=== PATIENT | female | born 1990 | race Asian ===

== ENCOUNTER 2023-10-10 16:59 | Inpatient (IN) | payer OTHER, SELFPAY ==
[2023-10-09 15:18] VITALS: BMI 20.8
[2023-10-09 15:23] VITALS: BP 117/73
--- NOTE | 2023-10-09 15:51 | ED.GENMED ---
History of Present Illness
<Ronald Hines MD - Last Filed: 10/10/23 15:51>
General
Chief Complaint: Chest Pain
Source: patient
Time Seen by Provider: 10/09/23 15:32
History of Present Illness
History of Present Illness:
33-year-old female apparently [facility]. Upon leaving [facility] she elected to call the ambulance to be evaluated for her leukemia which she has not been treated for. She has had some shortness of breath the last few days. Last
medication for her leukemia was in June. No significant chest pain. General weakness however. Admits to depression and some soup mild suicidal ideation.
Past History
<Ronald Hines MD - Last Filed: 10/10/23 15:51>
Past History
ED Past Medical History: Psychiatric (Bipolar) and Other (Leukemia); Negative Asthma, HTN, Hypercholesterolemia or NIDDM
ED Past Surgical History: None
Social History
Tobacco: Non-smoker
Alcohol: None
Personal: Single
Living: alone
Review of Systems
<Ronald Hines MD - Last Filed: 10/10/23 15:51>
Review of Systems
All Other Systems: Not applicable
Constitutional: Denies fever or chills
ABD/GI: Reports no symptoms
Phy Exam
<Ronald Hines MD - Last Filed: 10/10/23 15:51>
Physical Exam
Physical Exam:
GENERAL: Alert and oriented in no apparent distress
EYE: Orbits normal.
NECK: Supple, no significant adenopathy.
ENT: Pharynx without erythema
CARDIAC: Regular rate and rhythm without any obvious murmurs.
LUNGS: Clear breath sounds,normal
ABDOMEN: Soft, without focal tenderness or distention
NEUROLOGICAL: Alert and oriented , grossly non-focal
SKIN: Warm and dry, areas of bruising across her knees bilaterally extending to the upper anterior tibias bilaterally. Some bruising on her upper extremities
MUSCULOSKELETAL: No edema,no deformity.Good color
PSYCH: Normal and appropriate interaction.
Scores
<Ronald Hines MD - Last Filed: 10/10/23 15:51>
Heart Score for Chest Pain Patients
STEMI patient?: Not applicable
Course
<Ronald Hines MD - Last Filed: 10/10/23 15:51>
Orders/Labs/Results
Orders:
Orders
10/09/23 15:26
EKG [Electrocardiogram (*1)] Urgent
Reason for Study: Tachycardia
EKG- Treatment ONCE
10/09/23 15:27
Alcohol Urgent
Complete Blood Count/With Diff Urgent
Comprehensive Metabolic Panel Urgent
HCG, Serum Qualitative Screen Urgent
Comment: ADD
Manual Differential Urgent
Troponin I Urgent
10/09/23 15:34
Add On- LAB Urgent
Tests Added?: qual bhcg
Crisis Consult Urgent
Reason for Consult: depression/suicidal ideation/ bipolar
10/09/23 15:43
Add On- LAB Urgent
Tests Added?: alcohol
10/09/23 15:44
D-Dimer Urgent
10/09/23 15:56
Urine Drug Abuse Screen Urgent
Date Specimen was Collected: 10/09/23
Time Specimen was Collected: 15:54
10/09/23 17:47
CT Chest Pe Study Urgent
Comment:
Reason For Exam: Short of breath/leukemia
10/09/23 20:09
Case Management Consult ONCE
Case Management Consult: Discharge Planning
Consult Psychiatry [PSYCHIATRY CONSULT] Urgent
Consulting Provider: Lilia Barrientos
Was physician already notified: Yes
Reason for consult: History of bipolar. Poor insight. History of leukemia. Paranoid about tr
10/09/23 20:13
Diphenhydramine [Benadryl] 50 mg IV NOW STA
10/09/23 21:15
Lorazepam [Ativan] 1 mg PO NOW STA
10/10/23 05:15
Diphenhydramine [Benadryl] 25 mg IV NOW STA
Lorazepam [Ativan] 1 mg IV NOW STA
10/10/23 08:04
Diphenhydramine [Benadryl] 50 mg IV NOW STA
10/10/23 12:52
Diphenhydramine [Benadryl] 50 mg IV NOW STA
10/10/23 14:47
Lorazepam [Ativan] 1 mg IV NOW STA
Olanzapine [Zyprexa Zydis (Orally Disintegrating)] 5 mg PO NOW STA
10/10/23 14:53
Add On- LAB Urgent
Tests Added?: Total CK and TSH reflex
10/10/23 14:54
0.9% Sodium Chloride [Nss (Preservative Free)] 0.5 ml IV NOW STA
10/10/23 15:23
TSH Reflex To Free T4 Stat
Total CK [Creatine Phosphokinase] Stat
Abnormal Lab Results
10/09/23
15:27
WBC 64.5 H* 10^3/uL
(4.8-10.8)
RBC 4.06 L 10^6/uL
(4.20-5.40)
Hgb 10.3 L g/dL
(12.0-16.0)
Hct 32.5 L %
(37.0-47.0)
MCV 80.0 L fL
(81.0-99.0)
MCH 25.4 L pg
(27.0-31.0)
MCHC 31.7 L g/dL
(33.0-37.0)
RDW 17.2 H %
(11.5-14.5)
MPV 10.9 H fL
(7.4-10.4)
Abs Neuts (Manual) 33.5 H 10^3/uL
(1.4-6.5)
Segmented Neutrophils 40 L %
(42-75)
Band Neutrophils 12 H %
(0-3)
Lymphocytes (Manual) 11 L %
(20-51)
Monocytes (Manual) 14 H %
(2-9)
Blast Cells 8 H* %
(-)
Glucose 121 H mg/dl
(70-99)
10/09/23 15:27
10/09/23 15:27
Vital Signs
Initial and Last Documented VS:
Initial Vital Signs
Temp Pulse Resp BP Pulse Ox
98.9 F 84 21 117/73 96
10/09/23 15:23 10/09/23 15:23 10/09/23 15:23 10/09/23 15:23 10/09/23 15:23
Last Documented Vital Signs
Temp Pulse Resp BP Pulse Ox
98.9 F 85 16 123/87 98
10/09/23 15:23 10/10/23 08:20 10/10/23 08:20 10/10/23 08:20 10/10/23 08:20
<Yadiel Blanca MD - Last Filed: 10/10/23 14:46>
Orders/Labs/Results
Orders:
Orders
10/09/23 15:26
EKG [Electrocardiogram (*1)] Urgent
Reason for Study: Tachycardia
EKG- Treatment ONCE
10/09/23 15:27
Alcohol Urgent
Complete Blood Count/With Diff Urgent
Comprehensive Metabolic Panel Urgent
HCG, Serum Qualitative Screen Urgent
Comment: ADD
Manual Differential Urgent
Troponin I Urgent
10/09/23 15:34
Add On- LAB Urgent
Tests Added?: qual bhcg
Crisis Consult Urgent
Reason for Consult: depression/suicidal ideation/ bipolar
10/09/23 15:43
Add On- LAB Urgent
Tests Added?: alcohol
10/09/23 15:44
D-Dimer Urgent
10/09/23 15:56
Urine Drug Abuse Screen Urgent
Date Specimen was Collected: 10/09/23
Time Specimen was Collected: 15:54
10/09/23 17:47
CT Chest Pe Study Urgent
Comment:
Reason For Exam: Short of breath/leukemia
10/09/23 20:09
Case Management Consult ONCE
Case Management Consult: Discharge Planning
Consult Psychiatry [PSYCHIATRY CONSULT] Urgent
Consulting Provider: Lilia Barrientos
Was physician already notified: Yes
Reason for consult: History of bipolar. Poor insight. History of leukemia. Paranoid about tr
10/09/23 20:13
Diphenhydramine [Benadryl] 50 mg IV NOW STA
10/09/23 21:15
Lorazepam [Ativan] 1 mg PO NOW STA
10/10/23 05:15
Diphenhydramine [Benadryl] 25 mg IV NOW STA
Lorazepam [Ativan] 1 mg IV NOW STA
10/10/23 08:04
Diphenhydramine [Benadryl] 50 mg IV NOW STA
10/10/23 12:52
Diphenhydramine [Benadryl] 50 mg IV NOW STA
10/10/23 14:47
Lorazepam [Ativan] 1 mg IV NOW STA
Olanzapine [Zyprexa Zydis (Orally Disintegrating)] 5 mg PO NOW STA
10/10/23 14:53
Add On- LAB Urgent
Tests Added?: Total CK and TSH reflex
10/10/23 14:54
0.9% Sodium Chloride [Nss (Preservative Free)] 0.5 ml IV NOW STA
10/10/23 15:23
TSH Reflex To Free T4 Stat
Total CK [Creatine Phosphokinase] Stat
Abnormal Lab Results
10/09/23
15:27
WBC 64.5 H* 10^3/uL
(4.8-10.8)
RBC 4.06 L 10^6/uL
(4.20-5.40)
Hgb 10.3 L g/dL
(12.0-16.0)
Hct 32.5 L %
(37.0-47.0)
MCV 80.0 L fL
(81.0-99.0)
MCH 25.4 L pg
(27.0-31.0)
MCHC 31.7 L g/dL
(33.0-37.0)
RDW 17.2 H %
(11.5-14.5)
MPV 10.9 H fL
(7.4-10.4)
Abs Neuts (Manual) 33.5 H 10^3/uL
(1.4-6.5)
Segmented Neutrophils 40 L %
(42-75)
Band Neutrophils 12 H %
(0-3)
Lymphocytes (Manual) 11 L %
(20-51)
Monocytes (Manual) 14 H %
(2-9)
Blast Cells 8 H* %
(-)
Glucose 121 H mg/dl
(70-99)
10/09/23 15:27
10/09/23 15:27
Vital Signs
Initial and Last Documented VS:
Initial Vital Signs
Temp Pulse Resp BP Pulse Ox
98.9 F 84 21 117/73 96
10/09/23 15:23 10/09/23 15:23 10/09/23 15:23 10/09/23 15:23 10/09/23 15:23
Last Documented Vital Signs
Temp Pulse Resp BP Pulse Ox
98.9 F 85 16 123/87 98
10/09/23 15:23 10/10/23 08:20 10/10/23 08:20 10/10/23 08:20 10/10/23 08:20
<Ronald Hines MD - Last Filed: 10/10/23 15:51>
*EKG
Interpreted by ED Provider?: Yes
Interpretation: abnormal
Comparison EKG: changes noted
Heart Rate: 81
Rate: normal
Rhythm: sinus
[place]: normal axis
Interval: normal interval
QRS Pattern: normal QRS
Ischemia: other (Mild T wave inversions V2 and lead III.)
*Critical Care Note
Total Time (30-74mins, 75-104mins- exclusive of procedures): Not Applicable
Data Reviewed
Review of Other/Old Records Reveals: Labs and Testing
<Ronald Hines MD - Last Filed: 10/10/23 15:51>
Update Note
Update Note:
CBC was all reviewed with hematology. They felt this was not an emergent issue and that she should just follow-up closely with [facility] and restart her meds. Currently being seen by crisis
Crisis does not feel she requires psychiatric admission. She is not suicidal homicidal. She has poor insight into her disease but this does not warrant a committal. She was given resources for follow-up. However patient has nowhere to go likely
would warrant from restarting psychiatric medications. Again hematology felt this was not emergent from their standpoint but just needed closed follow-up with her oncologist.
We will leave her here overnight. I am giving her some Benadryl for what she feels is tardive dyskinesia symptoms. Will also help her sleep. Psychiatry consult in the morning and case management consult. There appears to be some placement issues
Med for leukemia... Dasatinib
<Yadiel Blanca MD - Last Filed: 10/10/23 14:46>
Update Note
Update Note:
CBC was all reviewed with hematology. They felt this was not an emergent issue and that she should just follow-up closely with [facility] and restart her meds. Currently being seen by crisis
Crisis does not feel she requires psychiatric admission. She is not suicidal homicidal. She has poor insight into her disease but this does not warrant a committal. She was given resources for follow-up. However patient has nowhere to go likely
would warrant from restarting psychiatric medications. Again hematology felt this was not emergent from their standpoint but just needed closed follow-up with her oncologist.
We will leave her here overnight. I am giving her some Benadryl for what she feels is tardive dyskinesia symptoms. Will also help her sleep. Psychiatry consult in the morning and case management consult. There appears to be some placement issues
Med for leukemia... Dasatinib
UPDATE (Yadiel Blanca MD)
I assumed care of the patient, reviewed all labs and imaging and evaluated the patient at bedside.
Patient essentially presented to us with acute psychotic break after [facility]. She has background history of leukemia and for reasons somewhat unclear not receiving or compliant with treatment. On her workup here she had a WBC 64;
case discussed with heme, indicated no emergent need for hospital admission but needs to be followed quite closely. Patient observed overnight while awaiting psychiatry evaluation for psychosis. Patient was ultimately seen by psychiatry this
afternoon and on their assessment patient would benefit from inpatient psychiatric treatment; oncoming ER physician (Dr. Hines, who was initial evaluating physician) to [place] [phone] for involuntary treatment. Unfortunately, with background history
of leukemia and lab abnormalities unlikely that patient will be excepted for transfer to an inpatient psychiatric facility. Will likely need to be treated for her psychiatric issue here at [facility]; ultimately, I feel that with the
untreated leukemia and the patient's very poor insight into her disease process that she would benefit from medical admission and hematology evaluation to get a plan in place for her medically while being treated psychiatrically. Case was discussed
with oncoming ER physician, admitting hospitalist, psychiatry and ultimately patient was accepted for admission.
ED Attending Note
<Ronald Hines MD - Last Filed: 10/10/23 15:51>
-
Portions of this chart may have been created with voice recognition software.� Occasional wrong word or��sound alike� substitutions may have occurred due to the inherent limitations of voice recognition software.
Discharge Plan
Departure
Patient Disposition: Admit
Date of Disposition: 10/10/23
Time of Disposition: 14:40
Admit to doctor: Giovanna
Presentation/result/management discussed w/ accepting MD/DO: Hospitalist
Discharge Problem:
Leukemia, Acute psychosis
Prescriptions:
No Action
Sprycel 100 mg Tablet
100 mg PO DAILY
Patient Comments:
10/09/23: Patient states she takes this medication, but has not been able to get it refilled.
Referrals:
NONE,* [Family Provider] -
Interventions
Interventions:
*Risk Screen - Suicide Last Done: 10/09/23 15:18
*General Assessment Last Done: 10/09/23 15:18
*Neglect/Abuse Screening Last Done: 10/09/23 15:18
*ED COVID-19 Vaccine History Last Done: 10/09/23 15:18
ED- Cardiac Assessment Last Done: 10/09/23 15:24
Discharge Date and Time
Print Language: TELUGU
[2023-10-09 15:56] LABS: ALT (SGPT) 18 U/L (0-35); AST (SGOT) 25 U/L (14-36); Albumin 4.9 g/dl (3.5-5.0); Alkaline Phosphatase 93 U/L (38-126); Blood Urea Nitrogen 10 mg/dl (7-17); Calcium 9.1 mg/dl (8.4-10.2); Carbon Dioxide 24 mmol/L (22-30); Chloride 105 mmol/L (98-107); Estimated Creatinine Clearance > 125 ml/min; Glucose 121 mg/dl (70-99); Potassium 3.6 mmol/L (3.5-5.1); Sodium 138 mmol/L (135-145); Total Bilirubin 0.6 mg/dl (0.2-1.3); Total Protein 7.3 g/dl (6.3-8.2); eGFR > 60.00
[2023-10-09 16:01] VITALS: BP 135/90
[2023-10-09 16:06] LABS: Troponin I < 0.012 ng/ml
[2023-10-09 16:20] LABS: Amphetamines Negative (Negative); Barbiturates Negative (Negative); Benzodiazepines Negative (Negative); Buprenorphine Negative (Negative); Cocaine Negative (Negative); Marijuana Negative (Negative); Methadone Negative (Negative); Methamphetamines Negative (Negative); Opiates Negative (Negative); Phencyclidine Negative (Negative); Tricyclic Antidepressants Negative (Negative)
[2023-10-09 16:25] LABS: Hematocrit 32.5 % (37.0-47.0); Hemoglobin 10.3 g/dL (12.0-16.0); Mean Corp Hgb Conc. 31.7 g/dL (33.0-37.0); Mean Corpuscular Hgb 25.4 pg (27.0-31.0); Mean Platelet Volume 10.9 fL (7.4-10.4); Platelet Count 181 10^3/uL (130-400); Red Blood Cell Count 4.06 10^6/uL (4.20-5.40); Red Cell Dist. Width 17.2 % (11.5-14.5); White Blood Cell Count 64.5 10^3/uL (4.8-10.8)
[2023-10-09 16:41] LABS: D-Dimer 0.33 ug/mlFEU (0.00-0.50)
--- NOTE | 2023-10-09 17:05 | PHANOTE ---
Addendum entered by Alba Payton 10/10/23 15:34:
Pt's family brought bottle of Sprycel (Dasatinib) 100mg to ER, prescribed as Take 1 tablet daily. Per pt's nurse, pt took a dose while in the room.
Original Note:
med rec peri(10/09/23)-Patient states she was getting Prolixin at [facility]. Does not have a prescription for home usage, but would like to get it here. Would also like Benadryl for side effects. She is also supposed to take Sprycel 100mg
QD, but has not been able to get it filled so she hasn't taken it in weeks.
[2023-10-09 17:26] LABS: Alcohol None Detected
[2023-10-09 17:34] LABS: HCG, Serum Qualitative Screen Negative
[2023-10-09 17:42] LABS: Absolute Neutrophils -Man Diff 33.5 10^3/uL (1.4-6.5); Band Neutrophils 12 % (0-3); Segmented Neutrophils 40 % (42-75)
[2023-10-09 17:43] LABS: Eosinophils 1 % (0-6); Lymphocytes 11 % (20-51); Monocytes 14 % (2-9)
[2023-10-09 17:44] LABS: Metamyelocytes 8 % (-); Myelocytes 6 % (-)
[2023-10-09 17:45] LABS: Blasts 8 % (-); Normal RBC Morphology No; Nucleated Red Blood Cells 3 (-); Platelets Checked Yes
[2023-10-09 17:46] LABS: Total Cells Counted 100
[2023-10-09 18:00] VITALS: BP 138/86
[2023-10-09] MEDS: BENADRYL 50 MG IV (20:38)
[2023-10-09] MEDS: ATIVAN 1 MG PO (21:20)
[2023-10-09 21:21] VITALS: BP 126/92
[2023-10-10 04:00] VITALS: BP 122/84
[2023-10-10] MEDS: BENADRYL 25 MG IV (05:19)
[2023-10-10] MEDS: ATIVAN 1 MG IV ×2 (05:20→16:03)
--- NOTE | 2023-10-10 07:50 | EDRN ---
Patient ringing the call nickerson. Upon anwering this RN spoke with patient who appears calm in the stretcher with both siderails raised. patient is requesting 25mg Benadryl PO as the 'efficacy is better when its a full dose' and would like to speak
with the doctor about having more. Spoek with Dr. Blanca and informed him of the patient's request and that medications were given at 0550 this morning. Currently no further orders give. When returning to the room to update the patient she was
ambulating in the hallway without difficulty. Informed her to return to her room and the doctor will speak with her. patient returned to room.
[2023-10-10] MEDS: BENADRYL 50 MG IV ×2 (08:11→13:47)
[2023-10-10 08:20] VITALS: BP 123/87
--- NOTE | 2023-10-10 09:47 | CM ---
Spoke to HAYLEY Narvaez for patient. Crisis has seen patient. Awaiting psychiatrist to assess patient.
CM met with patient. SHe reports she wants to 201 herself to to stay to get IV benadryl to treat what she believe to be her tardive dyskinesia that she reports was caused by medications she received a couple weeks ago from while inpatient at
[facility].
CM read EMS report in chart. Patient states her mother wants her to go back to inpatient psychiatric facility. Patient feels she first has to stay at .
Patient observed walking in room and getting in and out of stretcher without difficulty.
CM awaiting psychiatry input to discuss next level of care.
--- NOTE | 2023-10-10 13:58 | CM ---
Addendum entered by DEREK Porter 10/10/23 15:33:
CM met with patient to review plan for medical admission and that team may still recommend inpatient psy admit once medically stable. Patient had the leukemia medication on bedside table. She said she took one this morning when her mother brought
in medication. CM gave Rn the medications in bottle from pharmacy.
Addendum entered by DEREK Porter 10/10/23 15:11:
CM spoke to attending. PLan to admit patient to get her medically stable then plan for inpatient psychiatric admit.
Per attending mother can bring in leukemia medication to allow patient to be treated while in . Tried to call mother but no answer and voice mail was full. CM called back and spoke to mother. She is pleased patient staying at for now. SHe
said she left the medication to treat the leukemia at patient's bedside table. CM to alert RN and attending that medication is in room.
Original Note:
MOther was coming out of room and asked to speak to CM. Spent 45 minutes with mother. Mother reports patient starting having depression age 10. Parents . Mother states patient completed high school and went to [employer]. She had to
leave main campus, come home to finish her degree due to mental health issues. Mother was not in regular contact for 10 years.
At some point patient diagnosed with leukemia. In May 2023 patient was at [facility] and transferred to [facility] for leukemia treatment. At end of May she was d/c from [facility] to her mother's home. Patient tried to get a job but per mother has
a 'mental breakdown'. Per mother patient was laughing hysterically, talking to self and to people not physically present. Patient was also refusing to take her leukemia medications. Mother took her to f/u appt with Leukemia physician. Patient
exhibited previous behaviors in front of staff at appt. Staff and physician recommended mother do 302. Mother took dgtr to [facility]. 302 not upheld, patient went home with mother. Per mother, patient got her period and did not put
on pads, bled on floor and then used toiler for BM and did not flush for days. Mother came to crisis and filed 302. Police went to house and took patient to [place]. From there 304 to [facility] 09/09/23-10/07/23. Mother was not
notified that [facility] was d.c patient to her home.
She refused to let her in. Mother called 911 and police realized there was a warrant out for missed court appearance. [facility] Patient let go of senior living so mother called EMS to [facility] patient to bring her to as patient said
she was not well. Mother states when she saw patient before going to senior living she did not have all the bruises she sees on her daughter now.
Mother would like to avoid sending patient back to [facility] but wants he to go to inpatient psychiatric facility.
IF not inpatient psychiatric admit needed mother would like patient to stay at and receive her psychiatric medications at for another 2 days.
Explained to mother awaiting psychiatrist evaluation and will need to have [facility] agree to pay for inpatient psy placement. Also reviewed patient cannot do a 201 voluntary commitment to as is not a inpatient psychiatric facility.
Patient was seen walking hallways again while CM interviewed mother of patient.
CM to follow for d/c needs.
[2023-10-10 15:26] VITALS: BP 114/79
--- NOTE | 2023-10-10 15:51 | ED.CRISIS ---
ED Crisis Note
ED Crisis Note
Subjective:
Patient has been seen by psychiatry. We have elected to petition and document a 302 based on inability to care for self or have insight to her disease. For that reason she is a danger to self.
Objective:
Has remained stable in the ER. At times wandering the [place].
Assessment/Plan:
Psychiatry noted from mom that she is not normally psychotic. This has only been since her diagnosis of leukemia. Given that she clearly warrants inpatient psychiatric care and I will petition a 302 she also warrants medical involvement. Multiple
discussions and texts between hospitalist, hematology, psychiatry. Our recommendation is admission with their involvement. Either way they will be involved
[2023-10-10] MEDS: ZYPREXA ZYDIS (ORALLY DISINTEGRATING) 5 MG PO ×2 (16:03→22:14)
[2023-10-10] MEDS: NSS (PRESERVATIVE FREE) 0.5 ML IV (16:03)
--- NOTE | 2023-10-10 16:37 | CON.MD ---
Addendum entered and electronically signed by Lilia Barrientos MD 10/10/23 17:47:
Ativan PRN ordered only as PO due to potential interaction of IV/IM ativan with IV/IM zyprexa
Original Note:
Consultation - Medical
-
33 yo F with PMH of leukemia, diagnosed last year. Pt recently on 302 petitioned by mom, was held in [facility] for several weeks and then transferred to [facility] psychiatric inpatient unit at which time she was discharged following several doses
of prolixin. Pt currently complaining of 'tardive dyskinesia', she does appear to have Parkinsonism with shuffling gate, slowed movements, increased latency of speech and flat affect. Attempted to explain subacute EPS vs TD but patient remains
convinced she has TD. She does note that IV Benadryl has been somewhat helpful - previously took cogentin 1mg BID with no benefit according to her.
Pt reportedly has not been taking her chemotherapy medication - she does admit to this & says it's because her leukemia was cured and she no longer needed it, though she had not seen an oncologist prior to stopping. Is difficult to meaningfully
interview beyond this as she perseverates on needing Benadryl for TD. Reports that she was given prolixin because she was manic, but is unable to explain further. She does note that she was previously given zyprexa and did not experience side
effects, is open to retrialing this.
Spoke to pts mom (Kateryna Wolf [phone]). She reports that pt did have some prior history of depression but never needed psychiatric care and was able to complete [employer] with business degree. Recently was diagnosed with leukemia and was
started on chemotherapy with a good response (WBC went from 100s to 9, was told she has good chance to be cured). She moved in with mom while undergoing treatment and was not working as mom wanted her to focus on her health for the time being. 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
wasnt at work. Mom reports that after pt returned home that day she was behaving bizarrely - was agitated, talking to herself, erratic. This seems to have progressed quickly as she became increasingly more psychotic and unable to meaningfully
interact with family, would start yelling suddenly, talking to self - mom notes that pt started to defecate and urinate in her room, stopped taking care of herself. Mom and pts brother who also lives there were afraid to approach her due to the
unpredictable nature of her presentation. Pt was also 'peeling her skin' on her face and told mom that she has skin cancer which she is getting rid of. Mom is adamant that this has never happened previously and that the change was sudden. At this
time pt stopped taking her chemotherapy medication as she said she no longer needed it.
Mom was eventually able to petition a 302 which was upheld - pt was kept at [facility] on medical unit for several weeks and given psychiatric medication, though it seems there was limited if any benefit. She was later transferred to [facility]
inpatient psychiatric unit, where she received several doses of prolixin and discharged - as per mom however there was no observable improvement in pt. She remained agitated and if anything, perhaps was even worse as she was wandering outside, at
times banging on door. Was arrested for trespassing and spent a day or 2 in senior living - when mom saw her after this pt was covered with large bruises but could not provide an answer as to how she got them.
Mom brought pt to ER here because pt continues to refuse medications and she worries that the longer leukemia is untreated the more risk this is to pt.
Of note - mom reported that when pt was first diagnosed with leukemia her spleen was so enlarged that she appeared . This improved after some time of tx, however it seems that spleen is enlarged currently again (unclear to what extent at
this time).
It does seem that based on moms report, pt was behaving oddly prior to psychosis in July - it seems that around the time of her initial diagnosis she was withdrawing and mom had to convince her to see oncologist. Best that I can tell, these initial
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 Based on the nature
of psychosis (sudden onset, defecation/urination in room, lack of significant response to antipsychotics, noted to intermittently wander while in ER, possibly formication on face?)
I do worry that her psychiatric symptoms are a marker of an underlying medical etiology rather than due to a primary psychiatric cause. Given that she seems to have worsened following her recent psychiatric inpatient admission, I worry that if
underlying medical cause is not explored and addressed she will continue to worsen. While I cannot say with full certainty that this is not primarily psychiatric, there are enough atypical symptoms to warrant a more in depth investigation medically
prior to making the diagnostic decision.
Due to complexity of the case there was concerted involvement and discussion with myself, ER physicians and hospitalists to determine best next steps regarding dispo. A 302 was petitioned & upheld as regardless of exact dispo, pt is not safe to
herself at this time due to notably poor insight and inability to care for herself.
302 petitioned and upheld given lack of insight and inability to care for self
Started Zyprexa 2.5mg AM/5mg HS + 5mg now order + 2.5mg BIDPRN acute agitation with IM for PO refusal
Ativan 2mg Q4H PRN acute agitation with IM for PO refusal
cogentin 1mg BID as pts report of lack of benefit is not likely to be reliable & she has received multiple doses of IV Benadryl in 24hrs
Medically admitted to evaluate underlying etiology, Heme-onc was consulted as well
--- NOTE | 2023-10-10 16:45 | HPS.HSE ---
Addendum entered and electronically signed by Bob Mcdonnell MD 10/10/23 17:09:
I saw and examined the patient.
The CULINARY ARTS INSTRUCTOR's note was reviewed and I agree with the note.
Comment:
33 female past medical history of leukemia presenting from home with confusion. Of note patient was just released from shelter and EMS note noted that patient called 911 and stated to be evaluated in the ER for her leukemia. Patient with concern of
acute psychosis and not been taking medications. Patient was evaluated by psychiatry and advised to rule out underlying metabolic causes before transferring patient to inpatient psychiatry. 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
was transferred in stable hospital for 1 month. She was discharged with WBC count of 20,000 and was compliant with the chemotherapy for some time and recently stopped taking it. Patient recently had legal problems and was in shelter and was
subsequently released. Patient was brought into the ER with concern for confusion. Patient continues to state that she has tardive dyskinesia and continues to ask for IV Benadryl. Currently in ER , however did receive multiple doses of Benadryl
Ativan and Zyprexa. Hold off on further dose of Benadryl.
General: Comfortable and Conversant
HEENT: Anicteric and Moist mucous membranes
Respiratory: Clear and Non Labored Respirations
Cardiac: S1/S2 and Regular Rhythm
GI: Soft and Non Tender
Musculoskeletal: No Clubbing, No Cyanosis and No Edema
Skin: Warm and Dry
Neuro: Awake, Alert and Nonfocal/grossly intact
Psych: Calm and Other (Flat Affect)
Impression
Altered delirium likely secondary toxic metabolic encephalopathy versus underlying acute psychotic episode
CML
Anemia likely of chronic disease
Splenomegaly
Plan
Check CBC CMP
Check UDS
Check UA
CT chest noted with no acute pulmonary embolism dissection pneumothorax or pleural or parenchymal masses
Start IVF
If with agitation chemical restraints per psychiatry.
If needed sitter at bedside
Check CT of the head
DVT prophylaxis
I spent a total of 79 minutes with the patient or on the floor. More than 50% of this time involved counseling and coordination of care.
Original Note:
Family Physician
-
Family Physician: * NONE
Chief Complaint
-
Change in mental status
History of Present Illness
Patient is a 33-year-old female past medical history of anxiety/depression and leukemia who presents with change in mental status. Patient was diagnosed with leukemia in June 2023 at [facility] and subsequently transferred to [facility] for
leukemia treatment. Following discharge from [facility] she had a 'mental breakdown', requiring hospitalization at [facility] from which she was discharged on October 06. Patient's mother called 911 upon her release, and when police
arrived they took her to shelter for an outstanding warrant. Patient was released from shelter on Oct 08, and patient's mother called EMS to bring patient to the emergency department following her release. Apparently patient has not taken her leukemia
medications since June. Patient was evaluated by psychiatry in the emergency department who recommending inpatient psych care. However, due to patient's leukemia she is unable to be placed in a psychiatric facility. Hospitalist group was asked
to evaluate patient for admission to the hospital.
Medical History
Past Medical History
Past Medical History: Reports Other
Additional Past Medical History:
Anxiety/Depression
Leukemia
Past Surgical History: Reports None
Social History
Tobacco: Non-smoker
Alcohol: None
Drug: None
Family History
Family History: Not pertinent
Allergies / Home Medications
Allergies reflects when Allergies were last updated in [email or web address].
Home Medications with original date entered in [email or web address]
Allergy/Medication List:
Allergies
Allergy/AdvReac Type Severity Reaction Status Date / Time
No Known Allergies Allergy Verified 10/09/23 17:23
Home Medications
dasatinib 100 mg tablet (Sprycel) 100 mg PO DAILY 10/09/23
Review of Systems
-
A 12 point ROS was completed and negative except as noted: Yes
Constitutional: Denies Fever or Chills
Respiratory: Denies Cough or Trouble Breathing
Cardiac: Denies Chest Pain or Palpitations
Abdomen/GI: Denies Abdominal Pain, Nausea, Vomiting or Diarrhea
Physical Exam
Vital Signs
Vital Signs
Temp Pulse Resp BP Pulse Ox
98.9 F 85 16 123/87 98
10/09/23 15:23 10/10/23 08:20 10/10/23 08:20 10/10/23 08:20 10/10/23 08:20
Physical Exam
General: Comfortable and Conversant
HEENT: Anicteric and Moist mucous membranes
Respiratory: Clear and Non Labored Respirations
Cardiac: S1/S2 and Regular Rhythm
GI: Soft and Non Tender
Musculoskeletal: No Clubbing, No Cyanosis and No Edema
Skin: Warm and Dry
Neuro: Awake, Alert and Nonfocal/grossly intact
Psych: Calm and Other (Flat Affect)
Laboratory Results
-
10/09/23 15:27
10/09/23 15:27
Laboratory Results
Total Bilirubin 0.6 mg/dl (0.2-1.3) 10/09/23 15:27
AST 25 U/L (14-36) 10/09/23 15:27
ALT 18 U/L (0-35) 10/09/23 15:27
Alkaline Phosphatase 93 U/L (38-126) 10/09/23 15:27
Troponin I < 0.012 ng/ml 10/09/23 15:27
Data Reviewed
-
CT Scan: Report Reviewed by me
Lab Data: Labs Reviewed by me
Old Records: Requested
Impression/Plan
-
Acute Delirium, possible TME vs Psych
-Consult Psychiatry
-Check urinalysis
-Continue IVFs
-Check Head CT
-Continue Zyprexa prn
Leukemia
-Consult Hematology
-Attempt to obtain records from [facility]
-Resume dasatinib
DVT proph: SCDs
Code Status: Full Code
--- NOTE | 2023-10-10 18:00 | W.PN.UPDATE ---
Update Note
Progress Note Update
For billing purposes only
[2023-10-10 18:10] VITALS: BP 123/76; BMI 20.8
--- NOTE | 2023-10-10 18:12 | EDRN ---
When the patient's mom arrived to the department she brought the patient's medication Sprycel and the patient took 1 dose sometime today. Bottle was removed from the room and sent to pharmacy to supply while patient is admitted.
[2023-10-10 18:20] LABS: Creatine Phosphokinase 93 U/L (30-135)
[2023-10-10 18:52] LABS: TSH Reflex To Free T4 3.31 uIU/ml (0.47-4.68)
[2023-10-10] MEDS: COGENTIN PO (20:00)
[2023-10-10] MEDS: NSS 1000 IV (20:14)
[2023-10-10] MEDS: BENADRYL 50 MG PO (20:38)
[2023-10-10 23:00] VITALS: BP 102/65
[2023-10-11] MEDS: NSS 1000 IV (05:47)
--- NOTE | 2023-10-11 07:04 | CON.ONC ---
Impression
Impression
Chronic myeloid leukemia
Acute psychosis
History of anxiety/depression
Plan
Plan
Resume Dasatinib [Sprycel] 100 mg Tablet PO DAILY. Patient's supply was brought to the hospital and is available for administration.
Patient has 8% blasts seen on peripheral smear. This is not typically the criteria for blast crisis (typically these patients have >20% blasts in the peripheral smear).
There is no other evidence of transformation to acute leukemia so she should respond to oral TKI therapy such as Dasatinib which has now been started.
Hematologic parameters are otherwise at reasonable levels. No evidence of significant infection or bleeding.
Follow CBC on Dasatinib.
Patient History
History of Present Illness
CC: /\\ in [place], CML
HPI: 33-year-old female diagnosed with chronic myeloid leukemia in May 2023 at [facility] and subsequently transferred to [facility] for leukemia treatment. Following definitive diagnosis, she was started on Dasatinib [Sprycel] 100 mg Tablet PO DAILY.
Unfortunately, following her discharge from [facility] she had a 'mental breakdown', requiring hospitalization at [facility] from which she was discharged on October 06. Patient's mother called 911 upon her release, and when police
arrived they took her to jail for an outstanding warrant. Patient was released from jail on Oct 08, and patient's mother called EMS to bring patient to the emergency department following her release. Patient has not taken her dasatinib since
June. Patient was evaluated by psychiatry in the emergency department who recommending inpatient psych care. However, due to patient's leukemia she is unable to be placed in a psychiatric facility. Patient was therefore admitted to [facility].
Past-Medical/Surgical History
PMH:
Anxiety/Depression
Tardive dyskinesia
Chronic myeloid Leukemia (CML)
MEDS:
Dasatinib [Sprycel] 100 mg Tablet PO DAILY -patient has not been taking
Patient Medication
�Medication �Instructions �Recorded �Confirmed �Last Taken �Type
dasatinib 100 mg tablet (Sprycel) 100 mg PO DAILY 10/09/23 10/09/23 1 Month Ago History
~09/08/23
Active Medications
Generic Name Dose Route Start Last Admin
Trade Name Freq PRN Reason Stop Dose Admin
Acetaminophen 650 mg 10/10/23 17:56
Acetaminophen 325 Mg Tablet PO 11/07/23 17:55
Q4HPRN PRN
mild pain/ fever>100.5F
Benztropine Mesylate 0.5 mg 10/10/23 20:00 10/10/23 20:00
Benztropine 0.5 Mg Tablet PO 11/07/23 19:59 Not Given
BID VETO
Diphenhydramine HCl 50 mg 10/10/23 20:19 10/10/23 20:38
Diphenhydramine 50 Mg Capsule PO 11/07/23 20:18 50 mg
Q6HPRN PRN Administration
EPS
Sodium Chloride 1,000 mls @ 100 mls/hr 10/10/23 17:56 10/11/23 05:47
Nss IV 1,000 mls
.Q10H VETO Administration
Lorazepam 2 mg 10/10/23 17:39
Lorazepam 2 Mg Tablet PO 11/07/23 17:38
Q4HPRN PRN
acute agitation
Dasatinib [Sprycel] 0 mg 10/11/23 08:00
100 Mg Tablet Po PO 11/08/23 07:59
Daily DAILY VETO
Olanzapine 5 mg 10/10/23 22:00 10/10/23 22:14
Olanzapine (Orally-Disintegrating) 5 Mg Tablet PO 11/07/23 21:59 5 mg
HS VETO Administration
Olanzapine 2.5 mg 10/11/23 08:00
Olanzapine (Orally-Disintegrating) 5 Mg Tablet PO 11/08/23 07:59
DAILY VETO
Olanzapine 2.5 mg 10/10/23 17:39
Olanzapine (Orally-Disintegrating) 5 Mg Tablet PO 08/31/24 17:38
BIDPRN PRN
acute agitation
Olanzapine 2.5 mg 10/10/23 17:39
Olanzapine 10 Mg (Powder For Reconstitution) Vial IM 11/07/23 17:38
BIDPRN PRN
acute agitation w/PO refusal
Sodium Chloride 0 flush 10/10/23 18:00
Sodium Chloride 0.9% (Flush) Syringe IV 11/07/23 17:59
PER PROTOCOL VETO
Physical Exam
-
General: Well Developed and No Apparent Distress
HEENT: Negative Jaundice
Cardiology: Normal Sinus Rhythm, S1 and S2
Pulmonary: Clear
GI: Soft and Spleenomegaly (2 FB \\/)
Musculoskeletal: No Edema
Extremities: No C/C/E
Neurology: Non Focal
Labs
Lab Results
WBC 64.5 10^3/uL (4.8-10.8) H* 10/09/23 15:
RBC 4.06 10^6/uL (4.20-5.40) L 10/09/23 15:
Hgb 10.3 g/dL (12.0-16.0) L 10/09/23 15:
Hct 32.5 % (37.0-47.0) L 10/09/23 15:
MCV 80.0 fL (81.0-99.0) L 10/09/23 15:
MCH 25.4 pg (27.0-31.0) L 10/09/23 15:
MCHC 31.7 g/dL (33.0-37.0) L 10/09/23 15:
RDW 17.2 % (11.5-14.5) H 10/09/23 15:
Plt Count 181 10^3/uL (130-400) 10/09/23 15:
MPV 10.9 fL (7.4-10.4) H 10/09/23 15:
Creatinine 0.6 mg/dL (0.6-1.0) 10/09/23 15:27
Vital Signs
Vital Signs
Temp Pulse Resp BP Pulse Ox
98 F 89 16 102/65 98
10/10/23 23:00 10/10/23 23:00 10/10/23 23:00 10/10/23 23:00 10/10/23 23:00
[2023-10-11 07:10] VITALS: BP 104/64
--- NOTE | 2023-10-11 07:15 | PTCARENOTE ---
Pt asking frequently for Benedryl. She was not happy that is was order po. Will cont to monitor.
[2023-10-11 07:22] LABS: Urine Albumin Negative (Neg - Trace); Urine Bilirubin Negative (Negative); Urine Character Clear (Clear); Urine Color Yellow; Urine Glucose Negative (Negative); Urine Ketone Negative (Negative); Urine Leukocyte Trace (Negative); Urine Nitrite Negative (Negative); Urine Occult Blood 2+ (Negative); Urine Urobilinogen Negative (Neg - 1+)
[2023-10-11 07:54] LABS: Urine Amorphous Seen
[2023-10-11] MEDS: BENADRYL 50 MG PO ×3 (07:55→20:25)
[2023-10-11] MEDS: COGENTIN 0.5 MG PO (07:55)
[2023-10-11] MEDS: NON-FORMULARY ITEM 100 MG PO (07:55)
[2023-10-11 07:57] LABS: Urine Urothelial Cell 0-2 /LPF (FEW)
[2023-10-11 07:58] LABS: Urine Mucus Moderate
[2023-10-11] MEDS: FLUSH (NSS) 1 FLUSH IV (07:58)
[2023-10-11] MEDS: ZYPREXA ZYDIS (ORALLY DISINTEGRATING) 2.5 MG PO (08:17)
--- NOTE | 2023-10-11 08:39 | SUR.PHASEI ---
Pt states that she does not want to take cogentin, but again asked if she could have benedryl.
[2023-10-11 08:57] LABS: ALT (SGPT) 15 U/L (0-35); AST (SGOT) 19 U/L (14-36); Albumin 3.8 g/dl (3.5-5.0); Alkaline Phosphatase 75 U/L (38-126); Blood Urea Nitrogen 13 mg/dl (7-17); Calcium 8.2 mg/dl (8.4-10.2); Carbon Dioxide 24 mmol/L (22-30); Chloride 108 mmol/L (98-107); Estimated Creatinine Clearance > 125 ml/min; Glucose 109 mg/dl (70-99); Iron 51 ug/dl (37-170); Potassium 3.7 mmol/L (3.5-5.1); Sodium 138 mmol/L (135-145); Total Bilirubin 0.4 mg/dl (0.2-1.3); eGFR > 60.00
[2023-10-11 09:06] LABS: Percent Saturation 21 % (20-50); Total Iron Binding Capacity 242 ug/dl (265-497)
[2023-10-11 09:22] LABS: Hematocrit 28.2 % (37.0-47.0); Hemoglobin 8.8 g/dL (12.0-16.0); Mean Corp Hgb Conc. 31.2 g/dL (33.0-37.0); Mean Corpuscular Volume 83.2 fL (81.0-99.0); Red Blood Cell Count 3.39 10^6/uL (4.20-5.40); Red Cell Dist. Width 17.3 % (11.5-14.5); White Blood Cell Count 26.6 10^3/uL (4.8-10.8)
[2023-10-11 09:33] LABS: Ferritin 30.3 ng/ml (6.24-137)
[2023-10-11 10:04] LABS: Folate 11.2 ng/ml (2.76-20); Vitamin B12 > 1000 pg/ml (239-931)
--- NOTE | 2023-10-11 11:57 | W.PN.HOSP.TC ---
Addendum entered and electronically signed by Bob Mcdonnell MD 10/11/23 13:17:
Thrombocytopenia likely secondary to CML.
Hold lovenox
Original Note:
Today's Communication/Plan
-
Await further psych recs
DC IV fluids
Continue with p.o. chemotherapy regions
Continue with sitter
Assessment / Plan
Assessment / Plan
#Altered delirium likely secondary toxic metabolic encephalopathy versus underlying acute psychotic episode
UDS negative
Not agitated
UA negative
CT of the head was negative for acute stroke or acute pathology
Patient leukocytosis significantly improved with p.o. Dasatinib
Improvement in WBC and can DC further fluids. Tolerating diet.
Continue with sitter
Oncology correspondence noted. Not in acute leukemia.
Await further psych recs. Patient is currently 302. Continue with Zyprexa 2.5 mg a.m. and 5 mg nightly in addition to Cogentin 0.5 mg twice daily. Additional Zyprexa as needed ordered. Also Ativan as needed.
#CML
WBC improved from 64 K to 26
Continue with p.o. Dasatinib as wbc continues to improve
Onc consulted.
Anemia likely of chronic disease
likely 2/2 CML
Trend hgb. no need to transfuse
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
DVT ppx-start lovenox
Anticipated Discharge: > 48 hours
Subjective/Interval History
-
Date of Service: October 11, 2023
asking for benadyrl
no overnight events
Objective Data
-
Labs:
Laboratory Results
10/11/23
07:50
WBC 26.6 H
Hgb 8.8 L
Hct 28.2 L
Plt Count Pending
Sodium 138
Potassium 3.7
Chloride 108 H
Carbon Dioxide 24
BUN 13
Creatinine 0.6
Glucose 109 H
Calcium 8.2 L
Total Bilirubin 0.4
AST 19
ALT 15
Alkaline Phosphatase 75
Vital Signs:
Vital Signs
Temp Pulse Resp BP Pulse Ox
98.1 F 76 14 104/64 96
10/11/23 07:10 10/11/23 07:10 10/11/23 07:10 10/11/23 07:10 10/11/23 08:00
Physical Exam
-
General: Well Developed and No Apparent Distress
HEENT: Normocephalic, Atraumatic and Moist Mucous Membranes
Respiratory: Clear to Auscultation
Cardiac: Regular Rhythm and S1/S2; Negative Murmur, Rub or Gallop
GI: Soft, Nontender, Nondistended and Normal Bowel Sounds; Negative Organomegaly
Rectal: Deferred by Provider
Musculoskeletal: No Clubbing, No Cyanosis and No Edema
Skin: Other (Bruising noted on b/l le)
Neuro: Awake and Nonfocal/Grossly Intact
Data Reviewed
-
Total Time Spent with Patient (in minutes): 56
[2023-10-11 13:03] LABS: Platelet Count 105 10^3/uL (130-400)
[2023-10-11 13:05] LABS: Absolute Neutrophils -Man Diff 15.9 10^3/uL (1.4-6.5); Band Neutrophils 11 % (0-3); Eosinophils 4 % (0-6); Lymphocytes 16 % (20-51); Monocytes 6 % (2-9); Nucleated Red Blood Cells % 1.5 %; Segmented Neutrophils 49 % (42-75)
[2023-10-11 13:06] LABS: Metamyelocytes 2 % (-); Myelocytes 3 % (-); Normal RBC Morphology No; Nucleated Red Blood Cells 2 (-); Platelets Checked YES
[2023-10-11 13:07] LABS: Anisocytosis Slight
[2023-10-11 13:08] LABS: Ovalocytes FEW
[2023-10-11 13:09] LABS: Microcytosis FEW; Tear Drop Red Blood Cells FEW; Total Cells Counted 100
[2023-10-11 13:14] LABS: Blasts 4 % (-)
[2023-10-11 15:00] VITALS: BP 107/70
--- NOTE | 2023-10-11 17:00 | W.PN.UPDATE ---
Update Note
Progress Note Update
Pt seen at bedside - was walking in hallway with 1:1, returned with me to her room to talk. Remains with significant Parkinsonism but some improvement noted, is a bit less stiff and gait somewhat faster than yesterday though still shuffling. Remains
preoccupied with EPS and this being the reason for her being in the hospital, does not demonstrate insight as to why she was in a psychiatric hospital recently nor why mom is not comfortable having her home at this time. Attempted to ask about prior
symptoms (yelling at mom, talking to self, etc) and pt denies all of this - says she was diagnosed with a brief psychotic episode because she was not taking her chemo meds and no other reason. Is still not able to meaningfully say why she thought
she was cured and didn't need the medication. Pt is aware she is on a 302 and was told there will be hearing on Thursday. Keeps asking to stay here until; end of next week. Did explain to her that once medically cleared for discharge she would likely
be transferred to a psychiatric hospital, however pt insisted that I 'put in a good word' for her.
Called mom to update her (Kateryna Wolf [phone])
On 302, 303 hearing 10/12
Inpatient psychiatric hospital once medically cleared for discharge
D/c cogentin as she will not take it, continue current regimen otherwise - will continue to follow
[2023-10-11 22:00] VITALS: BP 100/63
[2023-10-11] MEDS: ZYPREXA ZYDIS (ORALLY DISINTEGRATING) 5 MG PO (22:42)
[2023-10-11 23:00] VITALS: BP 100/63
[2023-10-12] MEDS: BENADRYL 50 MG PO ×3 (05:17→18:12)
[2023-10-12 06:29] LABS: Blood Urea Nitrogen 12 mg/dl (7-17); Calcium 8.2 mg/dl (8.4-10.2); Carbon Dioxide 25 mmol/L (22-30); Chloride 110 mmol/L (98-107); Estimated Creatinine Clearance > 125 ml/min; Glucose 114 mg/dl (70-99); Potassium 3.7 mmol/L (3.5-5.1); Sodium 140 mmol/L (135-145); eGFR > 60.00
[2023-10-12 07:14] VITALS: BP 134/82
[2023-10-12 07:48] LABS: % Basophils 2.6 % (0-2); % Eosinophils 4.6 % (0-6); % Immature Granulocytes 14.6 % (0-0.5); % Lymphocytes 19.3 % (20.5-51.1); % Monocytes 5.1 % (1.7-9.3); % Neutrophils 53.8 % (42.2-75.2); Absolute Basophils 0.6 10^3/uL (0-0.2); Absolute Immature Granulocytes 3.2 10^3/uL (0-0.05); Absolute Lymphocytes 4.2 10^3/uL (1.2-3.4); Absolute Monocytes 1.1 10^3/uL (0.1-0.6); Absolute Neutrophils 11.6 10^3/uL (1.4-6.5); Hematocrit 26.5 % (37.0-47.0); Hemoglobin 8.2 g/dL (12.0-16.0); Mean Corp Hgb Conc. 30.9 g/dL (33.0-37.0); Mean Corpuscular Hgb 25.2 pg (27.0-31.0); Mean Corpuscular Volume 81.5 fL (81.0-99.0); Mean Platelet Volume 10.5 fL (7.4-10.4); Nucleated Red Blood Cells % 3.3 %; Platelet Count 87 10^3/uL (130-400); Red Blood Cell Count 3.25 10^6/uL (4.20-5.40); Red Cell Dist. Width 17.5 % (11.5-14.5); White Blood Cell Count 21.5 10^3/uL (4.8-10.8)
[2023-10-12] MEDS: ZYPREXA ZYDIS (ORALLY DISINTEGRATING) 2.5 MG PO (08:36)
[2023-10-12] MEDS: NON-FORMULARY ITEM 100 MG PO (08:36)
--- NOTE | 2023-10-12 10:46 | W.PN.ONC2 ---
Today's Communication / Plan
-
Daily CBC
monitor for myelosuppression, bleeding, fluid retention (including pleural effusion), diarrhea, musculoskeletal pain, rash that can be associated with dasatinib
avoid H2/PPI that can decrease drug level. Ok to use antacids prn
Impression
Impression
Chronic myeloid leukemia
Acute psychosis
History of anxiety/depression
Plan
Plan
continue Dasatinib [Sprycel] 100 mg Tablet PO DAILY (started 10/10), pt own med
Patient has 8% blasts seen on peripheral smear. This is not typically the criteria for blast crisis (typically these patients have >20% blasts in the peripheral smear).
There is no other evidence of transformation to acute leukemia so she should respond to oral TKI therapy such as Dasatinib which has now been started 10/10
Hematologic parameters are otherwise at reasonable levels. No evidence of significant infection or bleeding.
Follow CBC on Dasatinib
No objection to anticoagulation or antiplatelet with platelet count >50,000
Hold dasatinib if platelet <50,000 or if ANC <500
Subjective/Objective
Chief Complaint
on 1:1, calm
Subjective
Denies overt bleeding
unwilling to tell me how she obtained bruising on b/l knees
Vital Signs:
Vital Signs
Temp Pulse Resp BP Pulse Ox
98.4 F 84 16 134/82 98
10/12/23 07:14 10/12/23 07:14 10/12/23 07:14 10/12/23 07:14 10/12/23 10:44
Lab Results:
Laboratory Data
WBC 21.5 10^3/uL (4.8-10.8) H 10/12/23 04:58
Hgb 8.2 g/dL (12.0-16.0) L 10/12/23 04:58
Plt Count 87 10^3/uL (130-400) L 10/12/23 04:58
eGFR > 60.00 10/12/23 04:58
Physical Exam
HEENT: Moist Mucous Membranes; No Jaundice
Cardiology: S1 and S2
Pulmonary: Clear
GI: Soft
Extremities: No Edema
Review of Systems
Review of Systems
ROS notable for subjective otherwise negative
--- NOTE | 2023-10-12 14:10 | W.PN.UPDATE ---
Update Note
Progress Note Update
Pt seen, reviewed with nursing and case mgt. Pt on 302 for inability to care for self, not taking chemotx med for leukemia prior to admission. Pt seen over the weekend, noted with poor insight, flat affect, disheveled appearance, disjointed and
perseverative thought process. Pt started taking Zyprexa 5 mg HS, tolerating it okay. Pt now acknowledging she needs medical treatment, denies any SI. Pt continues to have flat affect, perseverative speech, preoccupied, repeatedly insisting on
being given IV Benadryl. Pt c/o 'shakes', but shows no signs of acute EPS, has some bradykinesia. Pt walking in the [place] with steady gait, though not fluid. Pt reportedly was given Prolixin when in psych facility recently, unclear when pt last
received an injection. Pt states she stopped taking chemotx med due to having an episode of psychosis. Pt asking to stay here at for a few days to stabilize on Zyprexa.
Imp: Unspecified psychotic d/o, with decreased self care, appears to be starting to improve on Zyprexa
Rec: Filing [phone] tomorrow; pt needs additional time to stabilize, will refer to inpatient psych when medically cleared
Will follow
[2023-10-12 14:53] VITALS: BP 111/71
--- NOTE | 2023-10-12 16:22 | W.PN.HOSP.TC ---
Today's Communication/Plan
-
Monitor CBC while on oral TKI
Continue current psychiatric regimen
Medically cleared for placement to inpatient psychiatric facility.
Assessment / Plan
Assessment / Plan
#Altered delirium likely secondary toxic metabolic encephalopathy versus underlying acute psychotic episode
UDS negative
Not agitated
UA negative
CT of the head was negative for acute stroke or acute pathology
Patient leukocytosis significantly improved with p.o. Dasatinib
Improvement in WBC and can DC further fluids. Tolerating diet.
Continue with sitter
Oncology correspondence noted. Not in acute leukemia.
Await further psych recs. Patient is currently 302. Continue with Zyprexa 2.5 mg a.m. and 5 mg nightly in addition to Cogentin 0.5 mg twice daily. Additional Zyprexa as needed ordered. Also Ativan as needed.
#CML
WBC improved from 64 K to 21
Continue with p.o. Dasatinib as wbc continues to improve
Onc consulted. Impression no evidence of acute transformation.
Anemia likely of chronic disease
likely 2/2 CML
Trend hgb. no need to transfuse
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
DVT ppx-start lovenox
Disposition, currently no acute medical issues.
Plan is for placement to inpatient psychiatric facility for further treatment.
Anticipated Discharge: 24 - 48 hours
Subjective/Interval History
-
Date of Service: October 12, 2023
Objective Data
-
Labs:
Laboratory Results
10/12/23
04:58
WBC 21.5 H
Hgb 8.2 L
Hct 26.5 L
Plt Count 87 L
Sodium 140
Potassium 3.7
Chloride 110 H
Carbon Dioxide 25
BUN 12
Creatinine 0.6
Glucose 114 H
Calcium 8.2 L
Vital Signs:
Vital Signs
Temp Pulse Resp BP Pulse Ox
97.6 F 77 16 111/71 98
10/12/23 14:53 10/12/23 14:53 10/12/23 14:53 10/12/23 14:53 10/12/23 14:53
I&O
10/11/23 10/12/23 10/13/23
06:59 06:59 06:59
Intake Total 1620 / 1620 960 / 960
Balance 1620 / 1620 960 / 960
Physical Exam
-
General: Well Developed and No Apparent Distress
HEENT: Normocephalic, Atraumatic and Moist Mucous Membranes
Respiratory: Clear to Auscultation
Cardiac: Regular Rhythm and S1/S2; Negative Murmur, Rub or Gallop
GI: Soft, Nontender, Nondistended and Normal Bowel Sounds; Negative Organomegaly
Rectal: Deferred by Provider
Musculoskeletal: No Clubbing, No Cyanosis and No Edema
Skin: Other (Bruising noted on b/l le)
Neuro: Awake and Nonfocal/Grossly Intact
[2023-10-12] MEDS: ZYPREXA ZYDIS (ORALLY DISINTEGRATING) 5 MG PO (22:12)
[2023-10-12 23:39] VITALS: BP 119/70
[2023-10-13] MEDS: BENADRYL 50 MG PO ×3 (06:11→18:30)
[2023-10-13 07:23] VITALS: BP 112/76
--- NOTE | 2023-10-13 08:28 | CM ---
Out of Sequence Note of 10/12/23.
Paperwork has been completed to petition for 303. Copies delivered to [facility], [facility]ameron Robin-Hearing [facility], [facility] Department of Behavioral [facility] and Sindy Anaya (assistant teacher to Kameron Robin). Patient's mother has been
contacted and copy of the 303 and 302 documentation has been forwarded via e-mail. Hearing has been set for 10/13/23 @ 9:30AM.
[2023-10-13] MEDS: ZYPREXA ZYDIS (ORALLY DISINTEGRATING) 2.5 MG PO (08:31)
[2023-10-13] MEDS: NON-FORMULARY ITEM 100 MG PO (08:31)
--- NOTE | 2023-10-13 09:36 | W.PN.ONC2 ---
Today's Communication / Plan
-
Daily CBC
check DIC panel
IV iron, continue ferrous sulfate 325mg PO every other day at discharge
Weekly CBC, CMP at discharge to be evaluated by her primary audiovisual technician, Dr. Clifton
Impression
Impression
Chronic myeloid leukemia, improving leukocytosis
Anemia
Thrombocytopenia, no B12 or folate deficiency
Acute psychosis
History of anxiety/depression
Plan
Plan
continue Dasatinib [Sprycel] 100 mg Tablet PO DAILY (started 10/10), pt own med
Patient has 8% blasts seen on peripheral smear. typically blast crisis with >20% blasts in the peripheral smear.
There is no other evidence of transformation to acute leukemia so she should respond to oral TKI therapy such as Dasatinib which has now been started 10/10
Anemia evaluation suggests component of iron deficiency with ferritin 30, Hgb 8.2g/dL. Scattered bruising, she tells me monthly menstrual cycle but unable/unwilling to provide any further detail, LMP last week
Check DIC panel
No objection to anticoagulation or antiplatelet with platelet count >50,000
Hold dasatinib if platelet <50,000 or if ANC <500
Caution QTC prolonging medication while on Dasatinib
IV iron, continue ferrous sulfate 325mg PO every other day at discharge
Weekly CBC, CMP at discharge to be evaluated by her primary audiovisual technician, Dr. Clifton
Subjective/Objective
Chief Complaint
denies overt bleeding
Subjective
no new complaints
Vital Signs:
Vital Signs
Temp Pulse Resp BP Pulse Ox
98.5 F 68 17 112/76 100
10/13/23 07:23 10/13/23 07:23 10/13/23 07:23 10/13/23 07:23 10/13/23 07:23
Lab Results:
Laboratory Data
WBC 21.5 10^3/uL (4.8-10.8) H 10/12/23 04:58
Hgb 8.2 g/dL (12.0-16.0) L 10/12/23 04:58
Plt Count 87 10^3/uL (130-400) L 10/12/23 04:58
eGFR > 60.00 10/12/23 04:58
Physical Exam
HEENT: Moist Mucous Membranes; No Jaundice
Cardiology: S1 and S2
Pulmonary: Clear
GI: Soft
Extremities: No Edema
Psych flat affect, calm, cooperative
Integ: bruising b/l knees
Review of Systems
Review of Systems
ROS notable for subjective, otherwise negative
[2023-10-13 10:50] LABS: Hematocrit 31.3 % (37.0-47.0); Hemoglobin 9.9 g/dL (12.0-16.0); Mean Corp Hgb Conc. 31.6 g/dL (33.0-37.0); Mean Corpuscular Hgb 25.6 pg (27.0-31.0); Mean Corpuscular Volume 80.9 fL (81.0-99.0); Mean Platelet Volume 11.5 fL (7.4-10.4); Platelet Count 114 10^3/uL (130-400); Red Blood Cell Count 3.87 10^6/uL (4.20-5.40); Red Cell Dist. Width 18.2 % (11.5-14.5); White Blood Cell Count 32.1 10^3/uL (4.8-10.8)
--- NOTE | 2023-10-13 11:17 | W.PN.UPDATE ---
Update Note
Progress Note Update
Pt seen, mother present, 303 hearing held with [address]. Pt stipulated to up to 7 days inpatient treatment. Pt had been on a [address] while at [facility], then was transferred to [facility], reason unclear. Pt continues to
improve, taking Zyprexa and chemotx agent. WBC's improving, still being checked daily by Oncology. Pt still has some mild parkinsonism, with decreased arm swing when walking, improving. She reports last received short-acting Prolixin injection
about 1 week ago at [facility]. No signs of TD, although pt is fixated on this. Pt asking for higher dose of Benadryl, asking for TD med.
Imp: Unspecified psychotic d/o, with decreased self care, appears to be improving on Zyprexa
EPS/parkinsonism from Prolixin injections [employer], slowly resolving
Rec: pt now on 303 for up to 7 days inpatient; will refer to inpatient psych when medically cleared
Pt prefers to stay at until stable for discharge, which could be the outcome in the next 2 to 3 days, if pt continues her current rate of improvement on Zyprexa
Will follow
[2023-10-13 11:39] LABS: Absolute Neutrophils -Man Diff 21.1 10^3/uL (1.4-6.5); Anisocytosis 1+; Band Neutrophils 7 % (0-3); Lymphocytes 23 % (20-51); Metamyelocytes 4 % (-); Monocytes 5 % (2-9); Myelocytes 2 % (-); Normal RBC Morphology No; Platelets Checked Yes; Polychromasia Slight; Segmented Neutrophils 59 % (42-75); Total Cells Counted 100
[2023-10-13] MEDS: FERRLECIT 110 MG IV (13:37)
[2023-10-13] MEDS: ATIVAN 1 MG PO ×2 (13:40→20:09)
[2023-10-13 15:08] VITALS: BP 108/69
--- NOTE | 2023-10-13 15:39 | CM ---
Addendum entered by Marlon Rucker 10/13/23 16:01:
Per 303 Certification: The total number of days for additional commitment is not to exceed 20 days, including inpatient and outpatient.
Original Note:
303 hearing was held this AM via Zoom. In attendance were: Saulo Kaminski, patient; Kateryna Wolf, patient's mother; Dr. Billy Huff, evaluating and petitioning psychiatrist; Ryan Araya Esquire, Awning Maker for patient; Justin Villafuerte Esquire,
Solicitor/Financial Services Consultant for Petitioner; Conchita Moran, review officer, and Marlon Rucker RN, Equipment Installation Professional for .
Certification for extended treatment was granted and patient was in agreement with terms of the Order and Certification. Terms agreed upon are that patient will remain in inpatient treatment for up to 7 days and then follow-up with outpatient
treatment. It was also agreed upon that should the Psychiatrist deem patient is stable to discharge prior to the 7 days then she could be discharged and follow-up with outpatient therapy. It was also agreed upon that the inpatient treatment did not
have to be in a psychiatric facility but could be in a hospital setting such as . Currently, patient is being monitored both medically and psychiatrically.
--- NOTE | 2023-10-13 15:51 | W.PN.HOSP.TC ---
Today's Communication/Plan
-
Monitor psychiatric status on initiated Zyprexa.
Monitor CBC
IV iron as per heme-onc
Assessment / Plan
Assessment / Plan
#Altered delirium likely secondary toxic metabolic encephalopathy versus underlying acute psychotic episode
UDS negative
Not agitated
UA negative
CT of the head was negative for acute stroke or acute pathology
Patient leukocytosis significantly improved with p.o. Dasatinib
Improvement in WBC and can DC further fluids. Tolerating diet.
Continue with sitter
Oncology correspondence noted. Not in acute leukemia.
Await further psych recs. Patient is currently 302. Continue with Zyprexa 2.5 mg a.m. and 5 mg nightly in addition to Cogentin 0.5 mg twice daily. Additional Zyprexa as needed ordered. Also Ativan as needed.
#CML
WBC improved from 64 K to 21
Continue with p.o. Dasatinib as wbc continues to improve
Onc consulted. Impression no evidence of acute transformation.
Anemia likely of chronic disease
likely 2/2 CML
Trend hgb. no need to transfuse
IV iron as per heme-onc
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
DVT ppx-start lovenox
Disposition, currently no acute medical issues.
Plan is for placement to inpatient psychiatric facility for further treatment.
Anticipated Discharge: 24 - 48 hours
Subjective/Interval History
-
Date of Service: October 13, 2023
Objective Data
-
Labs:
Laboratory Results
10/13/23
09:50
WBC 32.1 H
Hgb 9.9 L D
Hct 31.3 L
Plt Count 114 L D
Vital Signs:
Vital Signs
Temp Pulse Resp BP Pulse Ox
98.6 F 90 16 108/69 98
10/13/23 15:08 10/13/23 15:08 10/13/23 15:08 10/13/23 15:08 10/13/23 15:08
I&O
10/12/23 10/13/23 10/14/23
06:59 06:59 06:59
Intake Total 1620 / 1620 2160 / 2160 720 / 720
Balance 1620 / 1620 2160 / 2160 720 / 720
Physical Exam
-
General: Well Developed and No Apparent Distress
HEENT: Normocephalic, Atraumatic and Moist Mucous Membranes
Respiratory: Clear to Auscultation
Cardiac: Regular Rhythm and S1/S2; Negative Murmur, Rub or Gallop
GI: Soft, Nontender, Nondistended and Normal Bowel Sounds; Negative Organomegaly
Rectal: Deferred by Provider
Musculoskeletal: No Clubbing, No Cyanosis and No Edema
Skin: Other (Bruising noted on b/l le)
Neuro: Awake and Nonfocal/Grossly Intact
[2023-10-13] MEDS: ZYPREXA ZYDIS (ORALLY DISINTEGRATING) 5 MG PO (21:24)
[2023-10-13 22:39] VITALS: BP 96/62
[2023-10-14] MEDS: BENADRYL 50 MG PO ×3 (04:50→21:56)
[2023-10-14 05:50] LABS: INR 1.27; PT 15.7 Sec (11.4-14.6)
[2023-10-14 05:51] LABS: APTT 34.8 Sec (23.4-35.0); Fibrinogen 253 MG/DL (199-459)
[2023-10-14 05:52] LABS: Hematocrit 29.4 % (37.0-47.0); Mean Corp Hgb Conc. 30.6 g/dL (33.0-37.0); Mean Corpuscular Hgb 25.4 pg (27.0-31.0); Mean Corpuscular Volume 83.1 fL (81.0-99.0); Red Blood Cell Count 3.54 10^6/uL (4.20-5.40); White Blood Cell Count 19.3 10^3/uL (4.8-10.8)
[2023-10-14 05:54] LABS: D-Dimer < 0.27 ug/mlFEU (0.00-0.50)
[2023-10-14 06:12] LABS: ALT (SGPT) 15 U/L (0-35); AST (SGOT) 20 U/L (14-36); Alkaline Phosphatase 74 U/L (38-126); Blood Urea Nitrogen 14 mg/dl (7-17); Calcium 8.6 mg/dl (8.4-10.2); Carbon Dioxide 26 mmol/L (22-30); Chloride 107 mmol/L (98-107); Estimated Creatinine Clearance > 125 ml/min; Glucose 109 mg/dl (70-99); Magnesium 2.1 mg/dl (1.6-2.3); Potassium 3.9 mmol/L (3.5-5.1); Sodium 140 mmol/L (135-145); Total Bilirubin 0.4 mg/dl (0.2-1.3); eGFR > 60.00
[2023-10-14 06:15] LABS: Mean Platelet Volume 10.9 fL (7.4-10.4)
[2023-10-14 06:16] LABS: Absolute Neutrophils -Man Diff 12.5 10^3/uL (1.4-6.5); Anisocytosis 1+; Band Neutrophils 8 % (0-3); Eosinophils 4 % (0-6); Lymphocytes 22 % (20-51); Metamyelocytes 2 % (-); Monocytes 4 % (2-9); Myelocytes 3 % (-); Normal RBC Morphology No; Platelet Count 82 10^3/uL (130-400); Platelets Checked Yes; Polychromasia Slight; Segmented Neutrophils 57 % (42-75); Total Cells Counted 100
--- NOTE | 2023-10-14 06:16 | W.PN.ONC2 ---
Today's Communication / Plan
-
Heme status stable. Oupt F/U
Impression
Impression
Chronic myeloid leukemia, improving leukocytosis
Anemia
Thrombocytopenia, no B12 or folate deficiency
Acute psychosis
History of anxiety/depression
Plan
Plan
continue Dasatinib [Sprycel] 100 mg Tablet PO DAILY (started 10/10), pt own med
Patient has 8% blasts seen on peripheral smear. typically blast crisis with >20% blasts in the peripheral smear.
There is no other evidence of transformation to acute leukemia so she should respond to oral TKI therapy such as Dasatinib which has now been started 10/10
Anemia evaluation suggests component of iron deficiency with ferritin 30, Hgb 8.2g/dL. Scattered bruising, she tells me monthly menstrual cycle but unable/unwilling to provide any further detail, LMP last week
No objection to anticoagulation or antiplatelet with platelet count >50,000
Caution QTC prolonging medication while on Dasatinib
IV iron, continue ferrous sulfate 325mg PO every other day at discharge
Weekly CBC, CMP at discharge to be evaluated by her primary thread trimmer, Dr. Clifton
Subjective/Objective
Chief Complaint
ACS Heme Onc
Subjective
Tolerating Sprycel without difficulties.
Vital Signs:
Vital Signs
Temp Pulse Resp BP Pulse Ox
98.6 F 81 14 96/62 97
10/13/23 22:39 10/13/23 22:39 10/13/23 22:39 10/13/23 22:39 10/13/23 23:07
Lab Results:
Laboratory Data
WBC 19.3 10^3/uL (4.8-10.8) H 10/14/23 04:46
Hgb 9.0 g/dL (12.0-16.0) L 10/14/23 04:46
Plt Count 82 10^3/uL (130-400) L D 10/14/23 04:46
PT 15.7 Sec (11.4-14.6) H 10/14/23 04:46
INR 1.27 10/14/23 04:46
APTT 34.8 Sec (23.4-35.0) 10/14/23 04:46
eGFR > 60.00 10/14/23 04:46
Physical Exam
Cardiology: S1 and S2
Pulmonary: Clear
[2023-10-14] MEDS: ATIVAN 1 MG PO ×3 (06:20→18:20)
[2023-10-14 07:15] VITALS: BP 110/72
[2023-10-14] MEDS: ZYPREXA ZYDIS (ORALLY DISINTEGRATING) 2.5 MG PO (08:03)
[2023-10-14] MEDS: NON-FORMULARY ITEM 100 MG PO (08:04)
--- NOTE | 2023-10-14 11:35 | W.PN.UPDATE ---
Addendum entered and electronically signed by Kirill Jain MD 10/14/23 13:44:
patient very upset w reduction of benadryl to 25 mg have inc to 50 mg tid w prn limited to two 25 mg doses. will reassess in am
Original Note:
Update Note
Progress Note Update
patient seen chart reviewed. discussed with case mgt. the patient is a 33 year old woman dx with myeloid leukaemia. she was 303 committed yesterday for psychosis for up to seven days. she had two recent psych hospitalizations for psychosis the last
at [facility] where she was given prolixin decanoate which has caused her to suffer from EPS. she has shuffling gate mask like facies and cogwheeling rigidity. she keeps saying she has TD but what i see today is not TD but rather EPS she was
cooperative and engaged in discussion about treatment options. i would avoid antipsychotics that have more tendency to cause EPS. zyprexa is a good choice. she asked if i could lower the dose to 2.5mg. i suggested for now we try lowering it to 5
mg but if psychotic sx exacerbate may need to go back up again. she wanted iv benadryl but i explained to her PO preferred at this point. ordered standing benadryl 25 mg tid and reduced prn to 25 mg. my concern is addiction to the iv form . would
add some cogentin one mg bid continue with prn o.5 mg. she asked me to call her mom which i will do later today or tomorrow am.
[2023-10-14] MEDS: BENADRYL 25 MG PO (12:20)
[2023-10-14] MEDS: FERRLECIT 110 MG IV (13:32)
[2023-10-14] MEDS: COGENTIN 0.5 MG PO (13:32)
[2023-10-14 15:12] VITALS: BP 100/60
--- NOTE | 2023-10-14 15:39 | CM ---
S/P 303 hearing on 10/13/23. Psychiatrist reduced Zyprexa to 5mg. Patient says she feels a little better today. Slightly more facial expression and less rigidity with ambulation. Psychiatrist will monitor patient's response to reduction in
medication. She also will explore follow-up providers for when patient is discharged to home. Anticipate discharge to home with outpatient psychiatric care.
--- NOTE | 2023-10-14 17:23 | W.PN.HOSP.TC ---
Today's Communication/Plan
-
Continue to adjust psychiatric regimen over the next 24 to 48 hours. If psychiatrically stable consideration is to discharge home with oncology and psychiatry follow-up as outpatient.
Assessment / Plan
Assessment / Plan
#Altered delirium likely secondary toxic metabolic encephalopathy versus underlying acute psychotic episode
UDS negative
Not agitated
UA negative
CT of the head was negative for acute stroke or acute pathology
Patient leukocytosis significantly improved with p.o. Dasatinib
Improvement in WBC and can DC further fluids. Tolerating diet.
Continue with sitter
Psych recommendation appreciated. Patient received on Zyprexa with addition of Cogentin. Continue Benadryl adjusting dose to minimize EPS
#CML. Currently no evidence for acute transformation
WBC improved from and trending down
Continue with p.o. Dasatinib as wbc continues to improve
Onc consulted. Impression no evidence of acute transformation.
Anemia likely of chronic disease
likely 2/2 CML
Trend hgb. no need to transfuse
IV iron as per heme-onc
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
DVT ppx-start lovenox
Disposition, currently no acute medical issues.
Plan is for placement to inpatient psychiatric facility for further treatment.
Anticipated Discharge: 24 - 48 hours
Subjective/Interval History
-
Date of Service: October 14, 2023
Objective Data
-
Labs:
Laboratory Results
10/14/23
04:46
WBC 19.3 H
Hgb 9.0 L
Hct 29.4 L
Plt Count 82 L D
PT 15.7 H
INR 1.27
APTT 34.8
Sodium 140
Potassium 3.9
Chloride 107
Carbon Dioxide 26
BUN 14
Creatinine 0.6
Glucose 109 H
Calcium 8.6
Total Bilirubin 0.4
AST 20
ALT 15
Alkaline Phosphatase 74
Vital Signs:
Vital Signs
Temp Pulse Resp BP Pulse Ox
97.7 F 91 16 100/60 98
10/14/23 15:12 10/14/23 15:12 10/14/23 15:12 10/14/23 15:12 10/14/23 15:12
I&O
10/13/23 10/14/23 10/15/23
06:59 06:59 06:59
Intake Total 2160 / 2160 1440 / 1440
Balance 2160 / 2160 1440 / 1440
Physical Exam
-
General: Well Developed and No Apparent Distress
HEENT: Normocephalic, Atraumatic and Moist Mucous Membranes
Respiratory: Clear to Auscultation
Cardiac: Regular Rhythm and S1/S2; Negative Murmur, Rub or Gallop
GI: Soft, Nontender, Nondistended and Normal Bowel Sounds; Negative Organomegaly
Rectal: Deferred by Provider
Musculoskeletal: No Clubbing, No Cyanosis and No Edema
Skin: Other (Bruising noted on b/l le)
Neuro: Awake and Nonfocal/Grossly Intact
[2023-10-14] MEDS: COGENTIN 1 MG PO (19:54)
[2023-10-14] MEDS: ZYPREXA ZYDIS (ORALLY DISINTEGRATING) 5 MG PO (21:56)
[2023-10-14 23:13] VITALS: BP 98/62; BP 98/68
[2023-10-15] MEDS: BENADRYL 25 MG PO (04:41)
[2023-10-15] MEDS: ATIVAN 1 MG PO ×3 (04:44→19:36)
[2023-10-15 06:55] VITALS: BP 99/69
[2023-10-15 07:05] VITALS: BP 99/69
[2023-10-15] MEDS: BENADRYL 50 MG PO ×3 (08:20→21:54)
[2023-10-15] MEDS: COGENTIN 1 MG PO ×2 (08:20→19:36)
[2023-10-15] MEDS: NON-FORMULARY ITEM 100 MG PO (08:25)
--- NOTE | 2023-10-15 09:58 | W.PN.HOSP.TC ---
Today's Communication/Plan
-
await psych input
Assessment / Plan
Assessment / Plan
pt is a 33 year old female
Altered delirium likely secondary toxic metabolic encephalopathy versus underlying acute psychotic episode--UDS negative--Not agitated--UA negative--CT of the head was negative for acute stroke or acute pathology--Continue with sitter --Psych
recommendation appreciated. Patient received on Zyprexa with addition of Cogentin. Continue Benadryl adjusting dose to minimize EPS--wants to talk to psych about Ingrezza
CML. Currently no evidence for acute transformation--WBC improved from and trending down--Continue with p.o. Dasatinib as wbc continues to improve--apprec Onc -- no evidence of acute transformation.
Anemia likely of chronic disease due to CML--Trend hgb. no need to transfuse--IV iron as per heme-onc
Splenomegaly due to CML
DVT ppx-start lovenox
Disposition, currently no acute medical issues.
Home d/c when OK with psych
Anticipated Discharge: 24 - 48 hours
Subjective/Interval History
-
Date of Service: October 15, 2023
pt asking about Ingrezza
Objective Data
-
Labs:
Laboratory Results
10/15/23
06:00
WBC Pending
Hgb Pending
Hct Pending
Plt Count Pending
Sodium Pending
Potassium Pending
Chloride Pending
Carbon Dioxide Pending
BUN Pending
Creatinine Pending
Glucose Pending
Calcium Pending
Total Bilirubin Pending
AST Pending
ALT Pending
Alkaline Phosphatase Pending
Vital Signs:
max temp for 24 hours
10/15/23
07:05
Temp 98.4 F
Vital Signs
Temp Pulse Resp BP Pulse Ox
98.4 F 83 16 99/69 96
10/15/23 07:05 10/15/23 07:05 10/15/23 07:05 10/15/23 07:05 10/15/23 09:45
I&O
10/14/23 10/15/23 10/16/23
06:59 06:59 06:59
Intake Total 1440 / 1440 660 / 660
Balance 1440 / 1440 660 / 660
Review of Systems
-
All other systems: Reviewed and negative
Physical Exam
-
General: Well Developed, Well Nourished and No Apparent Distress
HEENT: Normocephalic, Atraumatic and Other (facial acne)
Respiratory: Clear to Auscultation; Negative Wheezes or Rhonchi
Cardiac: Regular Rhythm and S1/S2; Negative Murmur
GI: Soft, Nontender, Nondistended and Normal Bowel Sounds
Musculoskeletal: No Clubbing, No Cyanosis and No Edema
Neuro: Awake
Psych: Calm
[2023-10-15 11:58] LABS: Hematocrit 33.6 % (37.0-47.0); Hemoglobin 10.5 g/dL (12.0-16.0); Mean Corp Hgb Conc. 31.3 g/dL (33.0-37.0); Mean Corpuscular Hgb 26.4 pg (27.0-31.0); Mean Corpuscular Volume 84.4 fL (81.0-99.0); Red Blood Cell Count 3.98 10^6/uL (4.20-5.40); Red Cell Dist. Width 18.3 % (11.5-14.5); White Blood Cell Count 21.6 10^3/uL (4.8-10.8)
[2023-10-15 12:13] LABS: ALT (SGPT) 17 U/L (0-35); AST (SGOT) 21 U/L (14-36); Albumin 4.6 g/dl (3.5-5.0); Alkaline Phosphatase 84 U/L (38-126); Blood Urea Nitrogen 12 mg/dl (7-17); Calcium 9.2 mg/dl (8.4-10.2); Carbon Dioxide 27 mmol/L (22-30); Chloride 105 mmol/L (98-107); Estimated Creatinine Clearance 110 ml/min; Glucose 108 mg/dl (70-99); Potassium 4.2 mmol/L (3.5-5.1); Sodium 138 mmol/L (135-145); Total Bilirubin 0.7 mg/dl (0.2-1.3); Total Protein 6.9 g/dl (6.3-8.2); eGFR > 60.00
--- NOTE | 2023-10-15 12:16 | W.PN.UPDATE ---
Update Note
Progress Note Update
patient seen chart reviewed. discussed with nursing. spoke with mom (on speaker) at patient bedside. the patient seems to me to be improving. still some cogwheeling but a little bit better. explained to her again that it will take some time for the
prolixin to leave her system. explained the medications she is currently taking and why she does not need ingrezza. she does not have TD. she is very focused on medications and requests more benadryl cogentin etc. explained to her that these
medications even thought they are to treat side effects have side effects in themselves and why we don't want to increase the dose. she does not appear sedated at this point. i am attempting to get her an appt with [facility] for out patient followup
although it will not be immediate but hopefully this month for monitoring her psych meds. did not make any changes in her psych meds.
[2023-10-15 12:31] LABS: Absolute Neutrophils -Man Diff 11.8 10^3/uL (1.4-6.5); Band Neutrophils 10 % (0-3); Eosinophils 5 % (0-6); Lymphocytes 29 % (20-51); Mean Platelet Volume 10.7 fL (7.4-10.4); Metamyelocytes 2 % (-); Monocytes 1 % (2-9); Myelocytes 4 % (-); Platelet Count 82 10^3/uL (130-400); Segmented Neutrophils 45 % (42-75)
[2023-10-15 12:32] LABS: Anisocytosis 1+; Hypochromasia 2+; Normal RBC Morphology No; Nucleated Red Blood Cells 1 (-); Platelets Checked Yes; Polychromasia 1+
[2023-10-15 12:33] LABS: Ovalocytes 1+; Total Cells Counted 100
[2023-10-15] MEDS: FERRLECIT 110 MG IV (13:03)
[2023-10-15 15:03] VITALS: BP 133/63
[2023-10-15] MEDS: ZYPREXA ZYDIS (ORALLY DISINTEGRATING) 5 MG PO (21:54)
[2023-10-15 23:01] VITALS: BP 118/62
[2023-10-15 23:16] VITALS: BP 118/62
[2023-10-16] MEDS: ATIVAN 1 MG PO ×2 (03:01→09:50)
[2023-10-16 07:00] VITALS: BP 107/67
[2023-10-16] MEDS: BENADRYL 50 MG PO ×3 (08:06→22:01)
[2023-10-16] MEDS: COGENTIN 1 MG PO ×2 (08:06→19:46)
[2023-10-16] MEDS: NON-FORMULARY ITEM 100 MG PO (08:06)
--- NOTE | 2023-10-16 09:11 | W.PN.HOSP.TC ---
Today's Communication/Plan
-
awaiting psych eval
dispo planning
Assessment / Plan
Assessment / Plan
A/P:
# Acte toxic metabolic encephalopathy/altered delirium likely secondary to underlying acute psychotic episode vs EPS from Prolixin
UDS negative, UA negative, CT of the head was negative for acute stroke or acute pathology
Psych recommendation appreciated. Cont Zyprexa and Cogentin. Continue Benadryl adjusting dose to minimize EPS
Outpt Psych follow up
# CML. Currently no evidence for acute transformation
Follow WBC,
Continue with p.o. Dasatinib as wbc continues to improve
apprec Onc
# Anemia likely of chronic disease due to CML
Trend hgb. no need to transfuse
IV iron as per heme-onc
# Splenomegaly due to CML
DVT ppx- lovenox SQ
Anticipated Discharge: Within 24 hours
Subjective/Interval History
-
Date of Service: October 16, 2023
Objective Data
-
Labs:
Laboratory Results
10/16/23
07:30
WBC Pending
Hgb Pending
Hct Pending
Plt Count Pending
Sodium Pending
Potassium Pending
Chloride Pending
Carbon Dioxide Pending
BUN Pending
Creatinine Pending
Glucose Pending
Calcium Pending
Total Bilirubin Pending
AST Pending
ALT Pending
Alkaline Phosphatase Pending
Vital Signs:
Vital Signs
Temp Pulse Resp BP Pulse Ox
36.8 C 96 14 107/67 96
10/16/23 07:00 10/16/23 07:00 10/16/23 07:00 10/16/23 07:00 10/16/23 07:00
I&O
10/15/23 10/16/23 10/17/23
06:59 06:59 06:59
Intake Total 660 / 660 2760 / 2760
Balance 660 / 660 0 / 276
Review of Systems
-
All other systems: Reviewed and negative
Physical Exam
-
General: Well Developed, Well Nourished, No Apparent Distress, Comfortable and Conversant
HEENT: Normocephalic, Atraumatic and Other (facial acne)
Respiratory: Clear to Auscultation and Non Labored Respirations; Negative Wheezes, Crackles or Accessory Resp Muscle Use
Cardiac: Regular Rhythm and S1/S2; Negative Murmur
GI: Soft, Nontender, Nondistended and Normal Bowel Sounds
Musculoskeletal: No Clubbing, No Cyanosis and No Edema
Neuro: Awake and Alert
Psych: Calm and Intact Judgement/Insight (somewhat)
Data Reviewed
-
Labs: Labs Reviewed by me
[2023-10-16 09:27] LABS: Hematocrit 30.5 % (37.0-47.0); Hemoglobin 9.5 g/dL (12.0-16.0); Mean Corp Hgb Conc. 31.1 g/dL (33.0-37.0); Mean Corpuscular Hgb 26.6 pg (27.0-31.0); Mean Corpuscular Volume 85.4 fL (81.0-99.0); Red Blood Cell Count 3.57 10^6/uL (4.20-5.40); Red Cell Dist. Width 18.6 % (11.5-14.5); White Blood Cell Count 14.1 10^3/uL (4.8-10.8)
[2023-10-16] MEDS: BENADRYL 25 MG PO ×2 (09:50→19:46)
[2023-10-16 09:57] LABS: Mean Platelet Volume 12.2 fL (7.4-10.4); Platelet Count 78 10^3/uL (130-400); Segmented Neutrophils 55 % (42-75)
[2023-10-16 09:58] LABS: Absolute Neutrophils -Man Diff 10.4 10^3/uL (1.4-6.5); Anisocytosis 1+; Band Neutrophils 19 % (0-3); Blasts 1 % (-); Eosinophils 1 % (0-6); Hypochromasia 1+; Lymphocytes 13 % (20-51); Metamyelocytes 5 % (-); Monocytes 2 % (2-9); Myelocytes 2 % (-); Normal RBC Morphology No; Nucleated Red Blood Cells 3 (-); Platelets Checked Yes; Polychromasia 1+
[2023-10-16 09:59] LABS: Basophilic Stippling 1+
[2023-10-16 10:00] LABS: Acanthocytes 1+; Ovalocytes 1+; Total Cells Counted 100
[2023-10-16 10:10] LABS: ALT (SGPT) 18 U/L (0-35); AST (SGOT) 23 U/L (14-36); Albumin 4.3 g/dl (3.5-5.0); Alkaline Phosphatase 94 U/L (38-126); Blood Urea Nitrogen 17 mg/dl (7-17); Calcium 8.6 mg/dl (8.4-10.2); Carbon Dioxide 23 mmol/L (22-30); Chloride 106 mmol/L (98-107); Estimated Creatinine Clearance > 125 ml/min; Glucose 127 mg/dl (70-99); Potassium 3.7 mmol/L (3.5-5.1); Sodium 137 mmol/L (135-145); Total Bilirubin 0.5 mg/dl (0.2-1.3); Total Protein 6.5 g/dl (6.3-8.2); eGFR > 60.00
--- NOTE | 2023-10-16 11:05 | W.PN.ONC ---
Today's Communication / Plan
-
Continue Dasatinib [Sprycel] 100 mg Tablet PO DAILY (started 10/10), pt own med
CXR ordered due to reported shortness of breath; monitor for pleural effusion on Dasatinib
OOB activity and deep breathing encouraged
Continue IV iron while inpatient
Ferrous sulfate 325mg PO every other day at discharge
Weekly CBC, CMP at discharge to be evaluated by her primary basket hand weaver, Dr. Clifton
Impression
Impression
Chronic myeloid leukemia, improving leukocytosis
Anemia
Thrombocytopenia, no B12 or folate deficiency
Acute psychosis
History of anxiety/depression
Shortness of breath
Subjective/Objective
Subjective/Objective
patient is resting comfortably in bed, 1:1 at bedside. she complains of shortness of breath.
Vital Signs:
Vital Signs
Temp Pulse Resp BP Pulse Ox
98.3 F 96 14 107/67 96
10/16/23 07:00 10/16/23 07:00 10/16/23 07:00 10/16/23 07:00 10/16/23 07:00
physical exam:
aaox3, flat affect, pallor
dry mucous membranes
lungs diminished at bases, room air
bruising noted b/l LEs
Lab Results:
Laboratory Data
WBC 14.1 10^3/uL (4.8-10.8) H 10/16/23 07:30
Hgb 9.5 g/dL (12.0-16.0) L 10/16/23 07:30
Plt Count 78 10^3/uL (130-400) L 10/16/23 07:30
PT 15.7 Sec (11.4-14.6) H 10/14/23 04:46
INR 1.27 10/14/23 04:46
APTT 34.8 Sec (23.4-35.0) 10/14/23 04:46
eGFR > 60.00 08/09/24 07:30
Orders
Orders
Orders From Last 24 Hours
10/16/23 11:03
CR Chest - 2 Views Routine
--- NOTE | 2023-10-16 12:56 | W.PN.UPDATE ---
Addendum entered and electronically signed by Kirill Jain MD 10/16/23 14:28:
spoke w mom . mom asks if patient can be dc on thursday given she has just come off one to one. message relayed to dr mason and nsg. discussed w mom plans for out pt psych rx. mom also has made appt for oncology followup week after dc from .
Addendum entered and electronically signed by Kirill Jain MD 10/16/23 13:15:
would dc one to one. patient is in no danger of leaving. she wants to stay! she is not a risk to self or others
Original Note:
Update Note
Progress Note Update
patient seen chart reviewed. spoke with nursing and with dr mason several times via text. the patient is continuing to improve vis a vis prolixin side effects. her face seems more expressive. cogwheeling rigidity still present at wrists but less so.
she reports she is steadier on her feet. i did receive notice early today that she was being dc next thursday as she said her mother could not pick her up until thursday. the patient seems to want to be here as long as possible...asked me if she
could stay until thursday. my message to her is that i do not think she needs to remain until thursday and she should be dc thursday at the latest. i continue to remind her that larger amounts of benadryl cogentin and ativan are not necessarily in
her best interst as all meds have sidse effects. i will touch base w her mom as she requested and ascertain when mom can pick her up if possible. after many phone calls i did manage to get her out pt psych appts at [facility]. she has intake appt
virtually on thu at 930 am and with prescriber ms shelia sylvester on 10/28 at 420 pm. [facility] office will call mom as patient requested to give mom instructions as to how to do the virtual connection. have decreased ativan
prn to 0.5 mg would give her a limited supply at dc not to be used more than bid would suggest fifteen tabs.
[2023-10-16] MEDS: FERRLECIT 110 MG IV (14:04)
[2023-10-16 15:05] VITALS: BP 108/70
--- NOTE | 2023-10-16 16:40 | CM ---
Psychiatry visited patient and spoke with mother. Discharge plan of care remains home with mother and outpatient Psychiatric therapy.
[2023-10-16] MEDS: ATIVAN 0.5 MG PO (17:31)
[2023-10-16] MEDS: ZYPREXA ZYDIS (ORALLY DISINTEGRATING) 5 MG PO (22:01)
[2023-10-16 23:11] VITALS: BP 104/72
[2023-10-17] MEDS: BENADRYL 25 MG PO ×2 (05:42→18:32)
[2023-10-17] MEDS: ATIVAN 0.5 MG PO ×2 (06:33→15:49)
[2023-10-17 07:07] LABS: ALT (SGPT) 22 U/L (0-35); AST (SGOT) 27 U/L (14-36); Albumin 4.6 g/dl (3.5-5.0); Alkaline Phosphatase 78 U/L (38-126); Blood Urea Nitrogen 15 mg/dl (7-17); Calcium 8.8 mg/dl (8.4-10.2); Carbon Dioxide 25 mmol/L (22-30); Chloride 104 mmol/L (98-107); Estimated Creatinine Clearance > 125 ml/min; Glucose 105 mg/dl (70-99); Potassium 4.3 mmol/L (3.5-5.1); Sodium 138 mmol/L (135-145); Total Bilirubin 0.5 mg/dl (0.2-1.3); Total Protein 6.7 g/dl (6.3-8.2); eGFR > 60.00
[2023-10-17 07:10] VITALS: BP 111/74
[2023-10-17 07:36] LABS: Hematocrit 30.9 % (37.0-47.0); Hemoglobin 9.7 g/dL (12.0-16.0); Mean Corp Hgb Conc. 31.4 g/dL (33.0-37.0); Mean Corpuscular Hgb 26.5 pg (27.0-31.0); Mean Corpuscular Volume 84.4 fL (81.0-99.0); Mean Platelet Volume 10.3 fL (7.4-10.4); Platelet Count 65 10^3/uL (130-400); Red Blood Cell Count 3.66 10^6/uL (4.20-5.40); Red Cell Dist. Width 18.7 % (11.5-14.5); White Blood Cell Count 11.6 10^3/uL (4.8-10.8)
[2023-10-17] MEDS: NON-FORMULARY ITEM 100 MG PO (07:57)
[2023-10-17] MEDS: BENADRYL 50 MG PO ×3 (07:57→21:56)
[2023-10-17] MEDS: COGENTIN 1 MG PO ×2 (07:57→19:37)
[2023-10-17 09:02] LABS: Absolute Neutrophils -Man Diff 7.1 10^3/uL (1.4-6.5); Anisocytosis 1+; Band Neutrophils 14 % (0-3); Eosinophils 4 % (0-6); Hypochromasia 1+; Lymphocytes 27 % (20-51); Monocytes 5 % (2-9); Myelocytes 2 % (-); Normal RBC Morphology No; Platelets Checked Yes; Polychromasia Slight; Segmented Neutrophils 48 % (42-75); Total Cells Counted 100
--- NOTE | 2023-10-17 09:50 | W.PN.HOSP.TC ---
Today's Communication/Plan
-
see A/P
Assessment / Plan
Assessment / Plan
A/P:
# Acte toxic metabolic encephalopathy/altered delirium likely secondary to underlying acute psychotic episode vs EPS from Prolixin
UDS negative, UA negative, CT of the head was negative for acute stroke or acute pathology
Psych recommendation appreciated. Cont Zyprexa and Cogentin. Continue Benadryl adjusting dose to minimize EPS
Off one to one.
Outpt Psych follow up
# CML.
Currently no evidence for acute transformation
Follow WBC,
Continue with p.o. Dasatinib as wbc continues to improve
apprec Onc
# Anemia likely of chronic disease due to CML
Trend hgb. no need to transfuse
IV iron as per heme-onc
# Splenomegaly due to CML
DVT ppx- lovenox SQ
Dispo: mother requesting discharge on Thursday due to her concern that pt is coming off of one to one
Anticipated Discharge: 24 - 48 hours
Subjective/Interval History
-
Date of Service: October 17, 2023
Objective Data
-
Labs:
Laboratory Results
10/17/23
05:36
WBC 11.6 H
Hgb 9.7 L
Hct 30.9 L
Plt Count 65 L
Sodium 138
Potassium 4.3
Chloride 104
Carbon Dioxide 25
BUN 15
Creatinine 0.6
Glucose 105 H
Calcium 8.8
Total Bilirubin 0.5
AST 27
ALT 22
Alkaline Phosphatase 78
Vital Signs:
Vital Signs
Temp Pulse Resp BP Pulse Ox
36.6 C 75 14 111/74 100
10/17/23 07:10 10/17/23 07:10 10/17/23 07:10 10/17/23 07:10 10/17/23 07:10
I&O
10/16/23 10/17/23 10/18/23
06:59 06:59 06:59
Intake Total 2760 / 2760 2870 / 2870
Balance 2760 / 2760 2870 / 2870
Review of Systems
-
All other systems: Reviewed and negative
Physical Exam
-
General: Well Developed, Well Nourished, No Apparent Distress, Comfortable and Conversant
HEENT: Normocephalic, Atraumatic and Other (facial acne)
Respiratory: Clear to Auscultation and Non Labored Respirations; Negative Wheezes, Crackles or Accessory Resp Muscle Use
Cardiac: Regular Rhythm and S1/S2; Negative Murmur
GI: Soft, Nontender, Nondistended and Normal Bowel Sounds
Musculoskeletal: No Clubbing, No Cyanosis and No Edema
Neuro: Awake and Alert
Psych: Calm
Data Reviewed
-
Labs: Labs Reviewed by me
--- NOTE | 2023-10-17 11:23 | W.PN.UPDATE ---
Update Note
Progress Note Update
Patient continues to worry about EPS particularly stiffness and needs reassurance that it will improve. I tested for cogwheeling and could find no signs of that. She states her injection of depot Prolixin was 2 weeks ago so the medication would no
longer be in her system in 2 weeks at the latest.
Would continue the Zyprexa 5 mg hs.
Supportive intervention given.
[2023-10-17] MEDS: FERRLECIT 110 MG IV (13:38)
[2023-10-17 15:25] VITALS: BP 108/76
[2023-10-17] MEDS: ZYPREXA ZYDIS (ORALLY DISINTEGRATING) 5 MG PO (21:56)
[2023-10-17 23:01] VITALS: BP 100/70
[2023-10-18] MEDS: BENADRYL 25 MG PO (06:02)
[2023-10-18 06:36] LABS: Hematocrit 28.8 % (37.0-47.0); Hemoglobin 9.1 g/dL (12.0-16.0); Mean Corp Hgb Conc. 31.6 g/dL (33.0-37.0); Mean Corpuscular Hgb 25.9 pg (27.0-31.0); Mean Corpuscular Volume 82.1 fL (81.0-99.0); Mean Platelet Volume 11.6 fL (7.4-10.4); Platelet Count 61 10^3/uL (130-400); Red Blood Cell Count 3.51 10^6/uL (4.20-5.40); Red Cell Dist. Width 18.9 % (11.5-14.5); White Blood Cell Count 8.8 10^3/uL (4.8-10.8)
[2023-10-18 06:54] LABS: ALT (SGPT) 34 U/L (0-35); AST (SGOT) 37 U/L (14-36); Albumin 4.6 g/dl (3.5-5.0); Alkaline Phosphatase 84 U/L (38-126); Blood Urea Nitrogen 19 mg/dl (7-17); Carbon Dioxide 24 mmol/L (22-30); Chloride 105 mmol/L (98-107); Estimated Creatinine Clearance > 125 ml/min; Glucose 107 mg/dl (70-99); Potassium 4.6 mmol/L (3.5-5.1); Sodium 138 mmol/L (135-145); Total Bilirubin 0.6 mg/dl (0.2-1.3); Total Protein 6.6 g/dl (6.3-8.2); eGFR > 60.00
[2023-10-18 07:01] VITALS: BP 99/72
[2023-10-18] MEDS: NON-FORMULARY ITEM 100 MG PO (08:04)
[2023-10-18] MEDS: BENADRYL 50 MG PO ×3 (08:04→21:53)
[2023-10-18] MEDS: COGENTIN 1 MG PO ×2 (08:04→19:55)
[2023-10-18] MEDS: ATIVAN 0.5 MG PO ×2 (08:08→17:48)
[2023-10-18 08:17] LABS: Absolute Neutrophils -Man Diff 5.7 10^3/uL (1.4-6.5); Band Neutrophils 7 % (0-3); Eosinophils 1 % (0-6); Lymphocytes 23 % (20-51); Metamyelocytes 3 % (-); Monocytes 5 % (2-9); Myelocytes 3 % (-); Segmented Neutrophils 58 % (42-75)
[2023-10-18 08:18] LABS: Platelets Checked Yes
[2023-10-18 08:19] LABS: Anisocytosis 1+; Hypochromasia 1+; Normal RBC Morphology No; Nucleated Red Blood Cells 8 (-); Ovalocytes Slight; Polychromasia Slight; Tear Drop Red Blood Cells Slight; Total Cells Counted 100
--- NOTE | 2023-10-18 10:55 | W.PN.HOSP.TC ---
Today's Communication/Plan
-
see A/P
Assessment / Plan
Assessment / Plan
A/P:
# Acte toxic metabolic encephalopathy/altered delirium likely secondary to underlying acute psychotic episode vs EPS from Prolixin
UDS negative, UA negative, CT of the head was negative for acute stroke or acute pathology
Psych recommendation appreciated. Cont Zyprexa and Cogentin. Continue Benadryl adjusting dose to minimize EPS
Off one to one.
Outpt Psych follow up
# CML.
Currently no evidence for acute transformation
Follow WBC,
Continue with p.o. Dasatinib as wbc continues to improve
apprec Onc
# Anemia likely of chronic disease due to CML
Trend hgb. no need to transfuse
IV iron as per heme-onc
# Splenomegaly due to CML
DVT ppx- lovenox SQ
Dispo: mother requesting discharge on Thursday due to her concern that pt has come off one to one
Anticipated Discharge: Within 24 hours
Subjective/Interval History
-
Date of Service: October 18, 2023
Objective Data
-
Labs:
Laboratory Results
10/18/23
05:54
WBC 8.8
Hgb 9.1 L
Hct 28.8 L
Plt Count 61 L
Sodium 138
Potassium 4.6
Chloride 105
Carbon Dioxide 24
BUN 19 H
Creatinine 0.5 L
Glucose 107 H
Calcium 9.0
Total Bilirubin 0.6
AST 37 H
ALT 34
Alkaline Phosphatase 84
Vital Signs:
Vital Signs
Temp Pulse Resp BP Pulse Ox
36.6 C 76 14 99/72 100
10/18/23 07:01 10/18/23 07:01 10/18/23 07:01 10/18/23 07:01 10/18/23 07:01
I&O
10/17/23 10/18/23 10/19/23
06:59 06:59 06:59
Intake Total 2870 / 2870 1560 / 1560
Balance 2870 / 2870 1560 / 1560
--- NOTE | 2023-10-18 12:52 | W.PN.UPDATE ---
Update Note
Progress Note Update
Patient is very obsessed with her having EPS, this is despite her having no objective signs of it. Also thinking of getting a job after discharge and worried if she can hold it.
Denies any active psychotic symptoms although her affect is quite flat.
Encouraged to attend [facility] for therapy and medication management.
[2023-10-18 15:06] VITALS: BP 102/63
[2023-10-18] MEDS: ZYPREXA ZYDIS (ORALLY DISINTEGRATING) 5 MG PO (21:53)
[2023-10-18 23:14] VITALS: BP 101/60
[2023-10-19] MEDS: BENADRYL 25 MG PO ×2 (05:13→12:04)
[2023-10-19 07:10] VITALS: BP 99/67
[2023-10-19] MEDS: COGENTIN 1 MG PO (07:49)
[2023-10-19] MEDS: BENADRYL 50 MG PO (07:49)
[2023-10-19] MEDS: NON-FORMULARY ITEM 100 MG PO (07:50)
[2023-10-19] MEDS: ATIVAN 0.5 MG PO ×2 (07:50→14:16)
--- NOTE | 2023-10-19 11:40 | W.PN.HOSP.TC ---
Today's Communication/Plan
-
d/c
Assessment / Plan
Assessment / Plan
A/P:
# Acute toxic metabolic encephalopathy/altered delirium likely secondary to underlying acute psychotic episode vs EPS from Prolixin
UDS negative, UA negative, CT of the head was negative for acute stroke or acute pathology
Psych recommendation appreciated. Cont Zyprexa and Cogentin. Continue Benadryl adjusting dose to minimize EPS
Off one to one.
Outpt Psych follow up
# CML.
Currently no evidence for acute transformation
Follow WBC,
Continue with p.o. Dasatinib as wbc continues to improve
apprec Onc
# Anemia likely of chronic disease due to CML
Trend hgb. no need to transfuse
IV iron as per heme-onc
# Splenomegaly due to CML
DVT ppx- lovenox SQ
OK for d/c
Anticipated Discharge: Today
Subjective/Interval History
-
Date of Service: October 19, 2023
pt ready for d/c
Objective Data
-
Vital Signs:
max temp for 24 hours
10/19/23
07:10
Temp 98.5 F
Vital Signs
Temp Pulse Resp BP Pulse Ox
98.5 F 73 16 99/67 97
10/19/23 07:10 10/19/23 07:10 10/19/23 07:10 10/19/23 07:10 10/19/23 10:29
I&O
10/18/23 10/19/23 10/20/23
06:59 06:59 06:59
Intake Total 1560 / 1560 1440 / 1440
Balance 1560 / 1560 1440 / 1440
Review of Systems
-
All other systems: Reviewed and negative
Physical Exam
-
General: Well Developed, Well Nourished and No Apparent Distress
HEENT: Normocephalic and Atraumatic
Respiratory: Clear to Auscultation; Negative Wheezes or Rhonchi
Cardiac: Regular Rhythm and S1/S2; Negative Murmur
GI: Soft, Nontender, Nondistended and Normal Bowel Sounds
Musculoskeletal: No Clubbing, No Cyanosis and No Edema
--- NOTE | 2023-10-19 11:57 | CM ---
Patient seen at bedside with physician. Psych assessed and cleared for discharge per physician. Patient anticipates mother for discharge home today to transport between 3-4. 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 CM
will continue to follow for discharge planning needs.
Plan: home with follow up as outpatient per psych recommendations
--- NOTE | 2023-10-19 11:57 | W.PN.UPDATE ---
Update Note
Progress Note Update
Pt seen, walking with normal gait in hallway, then resting in bed using laptop. Pt alert, calm, cooperative, asking questions about her treatment. No overt signs of psychosis. Pt concerned about whether Prolixin side effects will completely
resolve, reportedly was given Prolixin decanoate at [facility] about 2 weeks ago. Pt was reassured that side effects will resolve with time. No overt signs of parkinsonism today; pt continues taking Benadryl, Cogentin, Ativan. Pt was instructed to stay
on Zyprexa for now, to be assessed based on her progress as an outpatient.
Imp: Unspecified psychotic d/o, with decreased self care, now stable on Zyprexa
EPS/parkinsonism from Prolixin injections [employer], resolving
Rec: Pt psychiatrically cleared for discharge, with Outpatient psychiatric f/u
Pt should continue current psych meds, including Zyprexa 5 mg HS
[2023-10-19 13:45] VITALS: BP 102/70
--- NOTE | 2023-10-19 15:15 | W.DCSUMMARY ---
Discharge Summary
Discharge Data
Date of Admission: 10/10/23
Date of Discharge: 10/19/23
-
Pending Results: No
Hospital Course
Primary care physician : None Listed
Principal Discharge diagnosis : Acute toxic metabolic encephalopathy with altered delirium secondary to underlying acute psychotic episode versus extrapyramidal symptoms from Prolixin
Chronic Discharge diagnosis : Chronic myelogenous leukemia, anemia of chronic disease
Hospital Course : Patient was a 33-year-old female with a history of anxiety and depression along with chronic myelogenous leukemia who presented with a change in mental status. Patient was diagnosed with leukemia in May or June 2023 at [facility] and was transferred to the [facility] for treatment. Following her discharge she had a 'mental breakdown' requiring hospitalization at [facility]. She was discharged on October 06. Upon release
there, patient went to the longterm for an outstanding warrant. She was released from longterm on October 08 and the patient's mother called EMS to bring the patient to the emergency department following her release. Patient had not taken her leukemia
medication since June. She was evaluated by psychiatry who recommended inpatient psych care. Patient was admitted.
Problem #1: Acute toxic metabolic encephalopathy with altered delirium secondary to underlying acute psychotic episode versus extrapyramidal symptoms from Prolixin. Urine drug screen was negative, urinalysis was negative, and CAT scan of the head
was negative for any acute stroke or any pathology. Psychiatry was consulted. Medication adjustments included Zyprexa and Cogentin. Along with Benadryl to minimize the EPS symptoms. She was initially placed on a one-to-one and has been taken
off. She should have outpatient psychiatry follow-up. Patient is much improved since the beginning of her hospitalization. She has been cleared for discharge by psychiatry. Inpatient treatment as was the initial plan was subsequently changed to
following up with psych as an outpatient.
Problem #2: All other medical issues. These include chronic myelogenous leukemia, anemia of chronic disease. These medical issues were stable during her hospitalization. Medications were continued as able. Oncology was consulted and the patient
should continue her medications as mentioned.
Patient is stable for discharge home at this time. If there are any questions regarding this dictation or hospital stay, please do not hesitate to call. Our office number is [phone].
Discharge Plan
-
Patient Disposition: Home (Routine Discharge)
Discharge Diagnosis/Procedures: Acute confusion/delirium likely secondary to underlying acute psychotic episode vs side effect from Prolixin; chronic myeloid leukemia (stable); anemia of chronic disease
Condition: Good
Diet: As tolerated
Activity: As tolerated
Driving Restrictions: Not until seen by your Dr
Bathing Restrictions: None
Referrals:
NONE,* [Family Provider] - in less than 1 week
Prescriptions:
New
diphenhydramine HCl 25 mg Capsule
25 mg PO Q6HPRN PRN (Reason: EPS) Qty: 20 0RF
lorazepam 0.5 mg Tablet
0.5 mg PO Q6HPRN PRN (Reason: anxiety) Qty: 20 0RF
benztropine 1 mg Tablet
1 mg PO BID Qty: 60 0RF
olanzapine 5 mg Tablet,Disintegrating
5 mg PO HS Qty: 30 0RF
Continued
Sprycel 100 mg Tablet
100 mg PO DAILY
Patient Comments:
10/09/23: Patient states she takes this medication, but has not been able to get it refilled.
Discharge Orders:
Discharge Patient (As Directed); Ordered 10/19/23
Ordered By: Trupti Moyer
Discharge Date and Time
Discharge Date/Time: 10/19/23 14:45
Print Language: FRISIAN
== END 2023-10-19 14:45 | disposition home or self-care (01) | DRG 885 ==
LOC: 2 NORTH 16:59
PROVIDERS: Emergency Medicine; Internal Medicine; Nurse Practitioner Acute Care; Physician Assistant Medical; ADMITTING PHYSICIAN Hospitalist; ATTENDING PHYSICIAN Internal Medicine; CONSULT PHYSICIAN Internal Medicine Hematology & Oncology; CONSULT PHYSICIAN Psychiatry & Neurology Psychiatry; EMERGENCY PHYSICIAN Emergency Medicine
DX: F23 Brief psychotic disorder (principal); G93.41 Metabolic encephalopathy; R45.851 Suicidal ideations; C92.10 Chronic myeloid leukemia, BCR/ABL-positive, not having achieved remission; C95.90 Leukemia, unspecified not having achieved remission; F31.9 Bipolar disorder, unspecified; T50.905A Adverse effect of unspecified drugs, medicaments and biological substances, initial encounter
CPT/HCPCS: 70450; 71046; 71275; 80048; 80053; 80306; 81003; 81015; 82077; 82550; 82607; 82728; 82746; 83540; 83550; 83735; 84443; 84484; 84703; 85025; 85379; 85384; 85610; 85730; 87070; 93005; 97110; 97116; 97162; 97165; 99285; J2916; Q9967

== ENCOUNTER 2023-10-27 20:00 | Emergency (ER) | payer OTHER, SELFPAY ==
[2023-10-27 20:02] VITALS: BP 123/86
[2023-10-27 20:21] VITALS: BMI 22.1
[2023-10-27 20:34] VITALS: BP 116/79
[2023-10-27] MEDS: BENADRYL 25 MG IV (21:08)
[2023-10-27 21:12] VITALS: BP 117/81
--- NOTE | 2023-10-27 21:51 | ED.GENMED ---
History of Present Illness
General
Chief Complaint: Psychiatric Problem
Source: patient and family
Time Seen by Provider: 10/27/23 20:23
History of Present Illness
History of Present Illness:
33-year-old female with a history of psychotic episode and extrapyramidal symptoms who presents with feeling like she is having an exacerbation. The patient was recently admitted to the hospital. They felt her symptoms were related to getting an
injection of Prolixin. Her last injection was about 3 weeks ago. The patient states at home she is been using Benadryl and Ativan but tonight she was very tremulous. Mom states that she is asking for medicine very often and bother her quite
often. Mom and patient are requesting her to be just admitted. The patient does have an appointment with [place] on . For now they are just managing her on Benadryl and lorazepam as needed. Patient was concerned she was having a seizure
as she felt tremulous. She reports feeling shaky on my exam but no shaking is noted.
Past History
Past History
ED Past Medical History: Psychiatric (Bipolar) and Other (Leukemia)
ED Past Surgical History: None
Social History
Tobacco: Non-smoker
Alcohol: None
Personal: Single
Living: alone
Phy Exam
Physical Exam
Physical Exam:
CONSTITUTIONAL Vital signs reviewed, Patient alert and oriented to person, place and time. Well-appearing
HEAD atraumatic, normocephalic.
EYES eyelids normal to inspection, Extraocular muscles intact, Conjunctiva normal, Sclera normal.
NECK normal range of motion, Trachea midline, no jugular venous distention.
RESP no respiratory distress
BACK No obvious deformities
UPPER EXTREMITY Gross Range of motion normal, gross motor strength normal
LOWER EXTREMITY Gross range of motion normal, Gross motor strength normal
NEURO Speech normal, No focal motor deficits include, Stacia coma scale 15, Memory normal, Cranial Nerves intact to screening exam. No shaking noted. Normal gait.
SKIN Skin warm, dry, and normal in color.
PSYCHIATRIC anxious affect
Course
Orders/Labs/Results
Orders:
Orders
10/27/23 20:57
Diphenhydramine [Benadryl] 25 mg IV NOW STA
Vital Signs
Initial and Last Documented VS:
Initial Vital Signs
Temp Pulse Resp BP Pulse Ox
97.8 F 92 20 123/86 97
10/27/23 20:02 10/27/23 20:02 10/27/23 20:02 10/27/23 20:02 10/27/23 20:02
Last Documented Vital Signs
Temp Pulse Resp BP Pulse Ox
97.8 F 68 18 117/81 98
10/27/23 20:02 10/27/23 21:57 10/27/23 21:57 10/27/23 21:12 10/27/23 21:57
MDM/Problems Addressed
MDM/Problems Addressed:
Anxiety, possible medication reaction
*Pulse Oximetry
Patient hypoxic: no
*Critical Care Note
Total Time (30-74mins, 75-104mins- exclusive of procedures): 30 minutes
Data Reviewed
Review of Other/Old Records Reveals: Progress Notes (Psychiatry note from recent admission reviewed) and Discharge Summary (Discharge summary from recent admission reviewed)
Source: patient
Prescriptions/Medications Considered But Not Given:
Considered IV benzodiazepines but patient appears quite well
Patient Management
Escalation/DeEscalation of care consider admission/obs:
Lengthy discussion with both mom and patient. Patient requests 'I just would like to be admitted'. She feels that IV Benadryl is much better for her. She is well-appearing and her gait is normal. She is not tremulous and there is certainly no
evidence of seizure disorder or activity. She has an appoint with [facility] in 48 hours and I feel that is the most important neck step. This was described to both mom and patient.
ED Attending Note
-
Portions of this chart may have been created with voice recognition software.� Occasional wrong word or��sound alike� substitutions may have occurred due to the inherent limitations of voice recognition software.
Discharge Plan
Departure
Patient Disposition: Home (Routine Discharge)
Date of Disposition: 10/27/23
Time of Disposition: 21:51
Patient with high blood pressure during this ER visit?: No
Discharge Problem:
Tremor
Prescriptions:
No Action
Sprycel 100 mg Tablet
100 mg PO DAILY
Patient Comments:
10/09/23: Patient states she takes this medication, but has not been able to get it refilled.
diphenhydramine HCl [Banophen] 25 mg Capsule
50 mg PO Q6
lorazepam 0.5 mg tablet
1 mg PO Q6HPRN PRN (Reason: anxiety)
Referrals:
UNKNOWN - PT DOES,NOT KNOW [Family Provider] -
Activity Restrictions/Additional Instructions:
Please see [facility] on as planned. Please continue your current regimen as needed.
Interventions
Interventions:
*Risk Screen - Suicide Last Done: 10/27/23 21:57
*General Assessment Last Done: 10/27/23 20:25
*Neglect/Abuse Screening Last Done: 10/27/23 20:25
ED- Fall Risk Assessment Last Done: 10/27/23 20:42
*ED COVID-19 Vaccine History Last Done: 10/27/23 21:57
*Nursing Disposition Last Done: 10/27/23 21:57
ED-Psychological Assessment Last Done: 10/27/23 20:42
Discharge Date and Time
Discharge Date/Time: 10/27/23 21:57
Print Language: IRISH
== END 2023-10-27 21:57 | disposition home or self-care (01) ==
LOC: EMR 20:00
PROVIDERS: EMERGENCY PHYSICIAN Emergency Medicine
DX: R25.1 Tremor, unspecified (principal); F23 Brief psychotic disorder; F31.9 Bipolar disorder, unspecified; Z85.6 Personal history of leukemia
CPT/HCPCS: 99291; 96374

== ENCOUNTER 2023-11-16 14:21 | Emergency (ER) | payer OTHER, SELFPAY ==
[2023-11-16 14:24] VITALS: BP 121/79
--- NOTE | 2023-11-16 15:56 | ED.GENMED ---
History of Present Illness
General
Chief Complaint: Chest Problem
Time Seen by Provider: 11/16/23 15:26
History of Present Illness
History of Present Illness:
33yoF hx CML currently on oral chemotherapy daily presenting with intermittent pleuritic nonradiating nonexertional left sided chest pain for the past 2 days. Pt states chest pain lasts for a few seconds and then spontaneously resolves. Pt denies
recent heavy lifting. Pt denies shortness of breath, cough, recent travel/prolonged immobilization, or leg swelling. Pt states she received Prolixin IM 1 month ago and has been having extrapyramidal symptoms since including tremors, akathisia which
gets better taking benadryl. Pt requesting IV benadryl at this time.
Past History
Past History
ED Past Medical History: Psychiatric (Bipolar) and Other (Leukemia)
ED Past Surgical History: None
Social History
Tobacco: Non-smoker
Alcohol: None
Personal: Single
Living: alone
Phy Exam
Physical Exam
Physical Exam:
General: Alert, no acute distress
Head: NCAT
Eyes: clear conjunctiva
Neck: supple
Cardiac: regular rate and rhythm, no murmur
Lungs: clear to auscultation bilaterally. No wheezes, rales, or rhonchi. Speaking full unlabored sentences. No respiratory distress.
Chest: reproducible left lower rib tenderness to palpation
Abdomen: soft, nondistended nontender. No rebound or guarding.
MSK: no lower extremity edema bilaterally. No deformity
Skin: warm, dry
Neuro: Alert and oriented x3. no focal deficits. no tremors
Psych: flat affect
Course
Orders/Labs/Results
Orders:
Orders
11/16/23 14:27
ECG [Electrocardiogram (*1)] Urgent
Reason for Study: Chest Pain
11/16/23 14:28
EKG- Treatment ONCE
11/16/23 15:56
CXR2 [CR Chest - 2 Views ] Urgent
Comment:
Reason For Exam: left side chest pain
11/16/23 15:57
Diphenhydramine [Benadryl] 50 mg IV NOW STA
11/16/23 16:04
CBC/With Diff [Complete Blood Count/With Diff] Urgent
CMP [Comprehensive Metabolic Panel] Urgent
DDimer [D-Dimer] Urgent
NT-proBNP Urgent
Protime/PTT Urgent
Troponin I Urgent
Abnormal Lab Results
11/16/23
16:04
WBC 4.1 L 10^3/uL
(4.8-10.8)
RBC 3.97 L 10^6/uL
(4.20-5.40)
Hgb 10.9 L g/dL
(12.0-16.0)
Hct 33.1 L %
(37.0-47.0)
MCHC 32.9 L g/dL
(33.0-37.0)
RDW 20.7 H %
(11.5-14.5)
Abs Immat Gran (auto) 0.3 H 10^3/uL
(0-0.05)
Absolute Neuts (auto) 1.1 L 10^3/uL
(1.4-6.5)
Immature Gran % 8.2 H %
(0-0.5)
Neutrophils % 27.7 L %
(42.2-75.2)
Lymphocytes % 56.9 H %
(20.5-51.1)
AST 37 H U/L
(14-36)
ALT 54 H U/L
(0-35)
11/16/23 16:04
11/16/23 16:04
Vital Signs
Initial and Last Documented VS:
Initial Vital Signs
Temp Pulse Resp BP Pulse Ox
98.4 F 86 18 121/79 99
11/16/23 14:24 11/16/23 14:24 11/16/23 14:24 11/16/23 14:24 11/16/23 14:24
Last Documented Vital Signs
Temp Pulse Resp BP Pulse Ox
98.4 F 80 15 120/70 100
11/16/23 14:24 11/16/23 18:55 11/16/23 18:55 11/16/23 18:55 11/16/23 18:55
MDM/Problems Addressed
Differential Diagnosis Includes:
costochondritis, PE, NSTEMI
MDM/Problems Addressed:
33yoF hx cancer presenting with intermittent left sided pleuritic nonexertional nonradiating chest pain for the past 2 days lasting for a few seconds at a time. Pt denies any other symptoms. Pt has reproducible chest wall tenderness to palpation.
Labs reviewed, ddimer within normal limits, low suspicion for PE. troponin within normal limits. CXR unremarkable. Given reproducible chest wall tenderness with no risk factors for ACS and normal troponin, very low suspicion for ACS. Higher
suspicion for costochondritis. Discussed results with patient at bedside, stable for discharge home with PCP follow up. Advised to take tylenol/motrin as needed. Patient expressed verbal understanding.
*Critical Care Note
Total Time (30-74mins, 75-104mins- exclusive of procedures): Not Applicable
ED Attending Note
-
Portions of this chart may have been created with voice recognition software.� Occasional wrong word or��sound alike� substitutions may have occurred due to the inherent limitations of voice recognition software.
Discharge Plan
Departure
Patient Disposition: Home (Routine Discharge)
Date of Disposition: 11/16/23
Time of Disposition: 18:13
Patient with high blood pressure during this ER visit?: No
Discharge Problem:
Costochondritis
Instructions: Chest Pain (DC)
Prescriptions:
No Action
Sprycel 100 mg Tablet
100 mg PO DAILY
Patient Comments:
10/09/23: Patient states she takes this medication, but has not been able to get it refilled.
diphenhydramine HCl [Banophen] 25 mg Capsule
50 mg PO Q6
lorazepam 0.5 mg tablet
1 mg PO Q6HPRN PRN (Reason: anxiety)
Referrals:
UNKNOWN - PT DOES,NOT KNOW [Family Provider] -
Activity Restrictions/Additional Instructions:
Take tylenol 975mg every 6 hours and/or ibuprofen 800mg every 8 hours with food needed for pain
Take Benadryl as needed for extrapyramidal symptoms
Follow up with primary care doctor in 1-2 days
Return to the emergency department for shortness of breath, fever, or new/worsening symptoms
Interventions
Interventions:
ED- Fall Risk Assessment Last Done: 11/16/23 16:09
*Nursing Disposition Last Done: 11/16/23 18:56
ED- Cardiac Assessment Last Done: 11/16/23 16:09
ED- Pulmonary Assessment Last Done: 11/16/23 16:09
Discharge Date and Time
Discharge Date/Time: 11/16/23 19:02
Print Language: SWISS
[2023-11-16] MEDS: BENADRYL 50 MG IV (16:15)
[2023-11-16 16:35] LABS: ALT (SGPT) 54 U/L (0-35); AST (SGOT) 37 U/L (14-36); Albumin 4.8 g/dl (3.5-5.0); Alkaline Phosphatase 86 U/L (38-126); Blood Urea Nitrogen 15 mg/dl (7-17); Calcium 9.4 mg/dl (8.4-10.2); Carbon Dioxide 29 mmol/L (22-30); Chloride 104 mmol/L (98-107); Glucose 94 mg/dl (70-99); Potassium 4.5 mmol/L (3.5-5.1); Sodium 140 mmol/L (135-145); Total Bilirubin 0.7 mg/dl (0.2-1.3); Total Protein 7.1 g/dl (6.3-8.2); eGFR > 60.00
[2023-11-16 16:45] LABS: NT-proBNP 312 pg/ml; Troponin I < 0.012 ng/ml
[2023-11-16 16:51] LABS: Hematocrit 33.1 % (37.0-47.0); Hemoglobin 10.9 g/dL (12.0-16.0); Mean Corp Hgb Conc. 32.9 g/dL (33.0-37.0); Mean Corpuscular Hgb 27.5 pg (27.0-31.0); Mean Corpuscular Volume 83.4 fL (81.0-99.0); Mean Platelet Volume 9.5 fL (7.4-10.4); Platelet Count 143 10^3/uL (130-400); Red Blood Cell Count 3.97 10^6/uL (4.20-5.40); Red Cell Dist. Width 20.7 % (11.5-14.5); White Blood Cell Count 4.1 10^3/uL (4.8-10.8)
[2023-11-16 17:09] LABS: APTT 31.4 Sec (23.4-35.0); INR 1.06; PT 13.6 Sec (11.4-14.6)
[2023-11-16 17:20] LABS: D-Dimer < 0.27 ug/mlFEU (0.00-0.50)
[2023-11-16 17:45] LABS: % Basophils 0.2 % (0-2); % Eosinophils 0.2 % (0-6); % Immature Granulocytes 8.2 % (0-0.5); % Lymphocytes 56.9 % (20.5-51.1); % Monocytes 6.8 % (1.7-9.3); % Neutrophils 27.7 % (42.2-75.2); Absolute Immature Granulocytes 0.3 10^3/uL (0-0.05); Absolute Lymphocytes 2.4 10^3/uL (1.2-3.4); Absolute Monocytes 0.3 10^3/uL (0.1-0.6); Absolute Neutrophils 1.1 10^3/uL (1.4-6.5); Nucleated Red Blood Cells % 6.3 %
[2023-11-16 18:55] VITALS: BP 120/70
== END 2023-11-16 19:02 | disposition home or self-care (01) ==
LOC: EMR 14:21
PROVIDERS: EMERGENCY PHYSICIAN Emergency Medicine
DX: M94.0 Chondrocostal junction syndrome [Tietze] (principal); C92.10 Chronic myeloid leukemia, BCR/ABL-positive, not having achieved remission; F31.9 Bipolar disorder, unspecified
CPT/HCPCS: 99283; 71046; 80053; 83880; 84484; 85025; 85379; 85610; 85730; 93005

== ENCOUNTER 2023-11-20 10:15 | Emergency (ER) | payer OTHER, SELFPAY ==
[2023-11-20 10:26] VITALS: BP 112/76
--- NOTE | 2023-11-20 11:08 | ED.GENMED ---
History of Present Illness
General
Chief Complaint: Change in Mental Status
Source: patient
Exam Limitations: none
Time Seen by Provider: 11/20/23 10:48
Nursing documentation reviewed up to this point in time: agreed with
History of Present Illness
History of Present Illness:
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
2023 was started on Dasatinib 100 mg p.o. daily to treat this, following at [facility]. Apparently after initiating treatment for CML she suffered a mental break and required inpatient psychiatric stay in September, had subsequent
arrest/incarceration with release 10/09/23 and then ultimately presented here to this emergency room and was admitted to this hospital 10/10/2023 until 10/19/2023. She was admitted essentially for inpatient psychiatric treatment to treat acute
psychosis--there was also a question of extrapyramidal symptoms related to a prior Prolixin injection. She required admission to the medical de due to difficulties with placement due to her CML. She was restarted on Dasatinib during that
stay�she had been noncompliant for months prior to hospitalization, restarted in October and she reports has been compliant since. She had her psychiatric medications adjusted�ultimately was discharged on olanzapine. She was maintained on Cogentin,
given Benadryl and Ativan as well to treat EPS.
Patient presents today to the emergency room because she feels that her extrapyramidal symptoms are worsening�she describes them specifically as 'bradyphrenia and rigidity.' She also says that she is experiencing tardive dyskinesia�she cites as an
example that she will have occasional involuntary movement of the jaw, most recent episode was last night. She feels that these are issues from 'residual Prolixin in my brain.' She says 'there is residual Prolixin in my brain and I am hoping that
we can adjust my medications to expedite the process of getting it out.' Of note her last dose of Prolixin was at the end of September. She has been prescribed her chemotherapy medication (Dasatinib), olanzapine 5 mg p.o. nightly, benztropine 1 mg p.o.
twice daily, Ativan 0.5 mg p.o. every 6 hours as needed; she also says that she takes Benadryl 25 mg as needed. Since her hospitalization she says that she has not seen an outpatient psychiatrist but did have a visit to [facility] and
was seen by psychiatrist out of the ER and prescribed Klonopin which she has been taking at a dose of 0.25 mg daily. Of these medications that she has been prescribed she says that she has been compliant with her Dasatinib but she says that she has
not been taking her Zyprexa or benztropine�'because I do not feel it is necessary.' She has been continuing to take Klonopin, Ativan, Benadryl. She says that she is hoping today that we can increase her doses of benzodiazepines 'because I feel
they release the dopamine and help with my extrapyramidal symptoms.' She denies any physical complaints aside from those described above�denies chest pain, shortness of breath, nausea, vomiting, diarrhea, abdominal pain or any other complaints.
Past History
Past History
ED Past Medical History: Psychiatric (Bipolar) and Other (Leukemia)
ED Past Surgical History: None
Social History
Tobacco: Non-smoker
Alcohol: None
Personal: Single
Living: alone
Review of Systems
Review of Systems
All Other Systems: ROS reviewed and negative except as documented in HPI and ROS
Constitutional: Denies fever
Respiratory: Denies trouble breathing
Cardiac: Denies chest pain
ABD/GI: Denies abdominal pain, nausea, vomiting or diarrhea
: Denies flank pain
Musculoskeletal: Reports other (Rigidity, tremors)
Neurological: Reports other (Bradyphrenia)
Phy Exam
Physical Exam
Physical Exam:
General: Awake, alert, oriented x3; no acute distress
Head: Normocephalic, atraumatic
Eyes: Conjunctiva normal, pupils equal round and reactive to light bilaterally
Throat: Airway intact, handling secretions
Neck: Trachea midline, supple without meningismus
Lungs: Clear to auscultation bilaterally, no wheezing, rales, rhonchi
Heart: Regular rate and rhythm, no murmurs, gallops, or rubs
Neuro: Cranial nerves grossly intact, motor and sensory function is intact in all extremities, no tremor felt on exam, question mild rigidity in the lower extremities (although her movements appear quite fluid spontaneously when attempting to move
passively she seems to have some slight rigidity)
Extremities: No edema in extremities, equal pulses in all extremities
Psych: Flat affect
Scores
Heart Failure Risk
Heart Failure Risk Score: Not Applicable
Heart Score for Chest Pain Patients
STEMI patient?: Not applicable
Withdrawal Assessment of Alcohol
Withdrawal Assessment Completed?: Not applicable
Course
Orders/Labs/Results
Orders:
Orders
11/20/23 11:04
Consult Psychiatry [PSYCHIATRY CONSULT] Urgent
Consulting Provider: Kirill Jain
Was physician already notified: Yes
Vital Signs
Initial and Last Documented VS:
Initial Vital Signs
Temp Pulse Resp BP Pulse Ox
36.8 C 84 20 112/76 98
11/20/23 10:26 11/20/23 10:11/20/23 10:11/20/23 10:11/20/23 10:26
Last Documented Vital Signs
Temp Pulse Resp BP Pulse Ox
36.8 C 84 20 112/76 98
11/20/23 10:11/20/23 10:11/20/23 10:11/20/23 10:11/20/23 10:26
MDM/Problems Addressed
Differential Diagnosis Includes:
EPS, TD, psychosis/delusional disorder, OCD
MDM/Problems Addressed:
33-year-old female with history as documented above presents today requesting psychiatry evaluation to discuss adjustment of her medications�she has been treated for extrapyramidal symptoms and tardive dyskinesia secondary to a Prolixin injection in
September. She feels she is having lingering symptoms and they are worsening. Despite this she has discontinued her Cogentin because she does not feel that is helping. She has been prescribed Klonopin and Ativan and also takes Benadryl and is hoping
to increase her dose of benzodiazepines today, she says. Vitals normal. Exam as above. Case discussed with psychiatry to evaluate. No clear indication for medical testing at this point.
Patient seen by marcus�juan has outpatient follow-up appointment with psychiatry scheduled, will refer to neurology as an outpatient as well for further assessment of which she feels are possibly continued extrapyramidal symptoms. Psychiatry
feels her 'bradyphrenia' is less likely an extrapyramidal symptom and more likely related to multiple sedative medications (Benadryl, Klonopin, Ativan). Advised to decrease dosage. At this point will discharge with outpatient follow-up plan in
place.
Chronic conditions affecting care:
Psychotic disorder
*Pulse Oximetry
Patient hypoxic: no
*Critical Care Note
Total Time (30-74mins, 75-104mins- exclusive of procedures): Not Applicable
Data Reviewed
Review of Other/Old Records Reveals: Labs, Records and Discharge Summary
Source: patient and records
Patient Management
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
ED Attending Note
-
Portions of this chart may have been created with voice recognition software.� Occasional wrong word or��sound alike� substitutions may have occurred due to the inherent limitations of voice recognition software.
Discharge Plan
Departure
Patient Disposition: Home (Routine Discharge)
Date of Disposition: 11/20/23
Time of Disposition: 14:08
Patient with high blood pressure during this ER visit?: No
Discharge Problem:
Brain fog, Tremor
Prescriptions:
No Action
Sprycel 100 mg Tablet
100 mg PO DAILY
Patient Comments:
10/09/23: Patient states she takes this medication, but has not been able to get it refilled.
diphenhydramine HCl [Banophen] 25 mg Capsule
50 mg PO Q6
lorazepam 0.5 mg tablet
1 mg PO Q6HPRN PRN (Reason: anxiety)
Referrals:
Adalid Ramos MD [Active] - Call in 1-3 days for appt (Neurology)
Activity Restrictions/Additional Instructions:
Thank you for visiting the Emergency Department at [facility].
1. Please schedule a follow up appointment as directed. Call first thing tomorrow morning to make an appointment.
2. If indicated, please take your medications as instructed and indicated on discharge paperwork.
3. If any of your symptoms do not improve, or persist, or become more severe within 6-12 hours, please return to the emergency department for further care.
4. Please return to the emergency department if you develop a headache, neck pain/stiffness, fever greater than 100.4F, chest pain, shortness of breath, persistent nausea, vomiting, slurred speech, difficulty walking, numbness/tingling, weakness,
signs of infection or any other symptoms that are worrisome to you.
Please call [phone] if you have any questions.
Interventions
Interventions:
*Risk Screen - Suicide Last Done: 11/20/23 10:18
*General Assessment Last Done: 11/20/23 10:26
*Neglect/Abuse Screening Last Done: 11/20/23 10:26
Discharge Date and Time
Print Language: IRISH
[2023-11-20 12:00] VITALS: BP 119/67
[2023-11-20 14:24] VITALS: BP 114/77
--- NOTE | 2023-11-20 14:28 | CON.MD ---
Consultation - Medical
-
patient seen chart reviewed. this patient is known to me from prior hosp. she is a 33 year old woman who comes to ed by padma restrepo complaint of 'pseudoparkinsonism and bradyphrenia'. she defines the latter as slowing of her thought process. she was
hospitalized psychiatrically in summer having suffered psychotic sx and treated w prolixin dec which caused her to have cogwheeling rigidty. she was hosp here at [facility] at the time with eps presumably from the p dec. she was started on
cogentin and benadryl as well as zyprexa for the psychosis and some ativan for anxiety. she did improve but became very preoccupied with whether she had 'tardive dyskinesia' which she did not. she did improved sufficiently for dc to home w followup
at [facility]. she saw ms annie weeks on oct 28 who recommended she continue with current medications which included cogentin ativan zyprexa. since that time she has gone to the er at [facility] ([facility]) and she saw dr agutam who prescribed klonopin o.25 mg in
addition to the ativan . she came to ed and saw dr sinclair who did not feel she had significant eps. today i did note some cogwheeling but very slight which could be residua from the prolixin. she has stopped the zyprexa. i did not note overt
psychosis. she does have very slight cogwheeling today her real complaint is that she feels cognitively slowed i did point out to her that taking benadry 50 mg tid ativan one mg daily and klonopin o.25 mg q day could be the reason she feels slowed.
she has not continued w cogentin feeling it does not help. she also tried symmetrel in the past and did not feel it helped. she is not depressed perse. she has no suicidal thoughts. the patient does have cml and is undergoing treatment at this
point and reports she is consistent with meds prescribed for cml.
past psych hx current rx lvf one hospitalization for psychosis see meds above
medical hx cml see above
fh denied
substance abuse denied
social resides w mother. patient is a college graduate. currently not working
mse alert 0x3 cooperative speech and thought process nl affect constricted mood neutral s/w anxious no si above aver intelligence insight judgment fair
dx h/o unspecified psychosis very mild cogwheeling secondary to prolixin decanoate injection most likely
recommendation it may still take some time for his mild cogwheeling to resolve. she is fluid in her gait. would suggest she speak to neurology and gave her three names dr rsini alvarez and dr nguyen. she should reduce the benadryl to 25 mg tid
and take the ativan and klonopin infrequently if she wants cognitive slowing to ameliorate. i told her i do not agree with use of two benzos but she has them already (i did check pdmp she has both although does not appear to be a large amount ) she
should see dr painting on dec 02 as planned. i will talk w dr painting prior. she can call crisis if further issues requiring addressing.
== END 2023-11-20 14:31 | disposition home or self-care (01) ==
LOC: EMR 10:15
PROVIDERS: CONSULT PHYSICIAN Psychiatry & Neurology Psychiatry; EMERGENCY PHYSICIAN Emergency Medicine; FAMILY PHYSICIAN Family Medicine
DX: R25.1 Tremor, unspecified (principal); C92.10 Chronic myeloid leukemia, BCR/ABL-positive, not having achieved remission; F31.9 Bipolar disorder, unspecified; Z79.899 Other long term (current) drug therapy
CPT/HCPCS: 99282

== ENCOUNTER 2023-11-24 16:43 | Emergency (ER) | payer OTHER, SELFPAY ==
[2023-11-24 16:55] VITALS: BP 132/92
--- NOTE | 2023-11-24 16:56 | ED.PDOC.TRB ---
ED Provider Triage
-
Patient seen by provider in Triage?: Seen in Triage
Attestation: A medical screening examination has been initiated by a qualified medical provider. Based on the assessment performed at this time, it has been determined that an emergent medical condition may exist and the patient has been informed
that further medical evaluation and possible additional diagnostic testing may be needed.
HPI: 33-year-old female presents to the emergency department for evaluation of general nausea and extremity tremors that been ongoing since starting amantadine 2 days ago. She states she had taken this previously after a psychiatric admission at
[facility] and developed similar symptoms and thus discontinued. She went to an urgent care 2 days ago and requested to be restarted on it for mental health purposes and this was prescribed, has taken 2 doses thus far and notes the nausea and
shaking symptoms developing today. Has not taken any [id number] medicines for this
GENERAL: Alert , in no apparent distress
EYE: No visual abnormalities.
NECK: Trachea midline
ENT: No visible abnormalities.
LUNGS: No acute respiratory distress
NEUROLOGICAL: Alert and oriented
SKIN: Skin intact. No visible changes.
MUSCULOSKELETAL: Moving extremities normally
PSYCH: Normal and appropriate interaction.
Assessment: The patient appears to be generally tremulous, potential tardive dyskinesia given the new onset medication. Will give IM diphenhydramine. Of note the patient does have numerous visits to this emergency department and has a
perseveration on EPS
This is a medical evaluation conducted in person to initiate diagnostic evaluation and provide initial therapeutics. Please see further documentation by the treating clinician.
[2023-11-24] MEDS: BENADRYL 50 MG IM (17:03)
[2023-11-24 19:10] VITALS: BP 123/88
[2023-11-24] MEDS: BENADRYL 25 MG IV (19:38)
--- NOTE | 2023-11-24 19:42 | ED.GENMED ---
History of Present Illness
General
Chief Complaint: Abdominal Symptoms
Time Seen by Provider: 11/24/23 19:07
History of Present Illness
History of Present Illness:
33-year-old female with history of leukemia and psychiatric issues presenting to the emergency department for concern of tremulousness. Patient reports that she has had a tremor, and took amantadine today to try to control the tremor. She took the
medication around 1 PM and since then feels that the tremor is worse and her jaw is locked. She reports that she took medication about a month ago and had similar symptoms, however stopped taking it and attempted to resume it today. Denies chest
pain or difficulty breathing. Denies fever. Does note some nausea, no abdominal pain. Denies weakness to her extremities. Denies additional acute medical complaints
Past History
Past History
ED Past Medical History: Psychiatric (Bipolar) and Other (Leukemia)
ED Past Surgical History: None
Social History
Tobacco: Non-smoker
Alcohol: None
Personal: Single
Living: alone
Phy Exam
Physical Exam
Physical Exam:
General: Well-appearing, no clinical signs of dehydration, nontoxic and in no acute distress
HEENT: protecting airway. No significant locking of the jaw, airway patent, no trismus
Neck: appears supple
CV: Normal heart rate, regular rhythm
Resp: No accessory muscle use, no increased work of breathing, lungs clear to auscultation bilaterally
Abd: Soft and non-distended
Extremities: No deformities, no swelling, no erythema
Neuro: alert, no focal neurologic deficit. Mild intention tremor.
: deferred
Rectal: deferred
Psych: Flat affect
Skin: Intact
Course
Orders/Labs/Results
Orders:
Orders
11/24/23 16:57
Diphenhydramine [Benadryl] 50 mg IM NOW STA
11/24/23 19:22
Diphenhydramine [Benadryl] 25 mg IV NOW STA
11/24/23 19:36
Complete Blood Count/With Diff Urgent
Comprehensive Metabolic Panel Urgent
Vital Signs
Initial and Last Documented VS:
Initial Vital Signs
Temp Pulse Resp BP Pulse Ox
98.1 F 71 20 132/92 100
11/24/23 16:55 11/24/23 16:55 11/24/23 16:55 11/24/23 16:55 11/24/23 16:55
Last Documented Vital Signs
Temp Pulse Resp BP Pulse Ox
98.2 F 71 20 123/88 98
11/24/23 19:11 11/24/23 16:55 11/24/23 16:55 11/24/23 19:10 11/24/23 19:11
MDM/Problems Addressed
MDM/Problems Addressed:
33-year-old female with history of leukemia, intention tremor, psychiatric issues presenting with concern of worsening tremor after taking amantadine. Vital signs on arrival are normal.
On exam, patient in no acute distress, however does have a flat affect. No significant tremulousness, mild intention tremor. Low suspicion for any serious drug reaction. Possible mild dystonic reaction, however less common with amantadine. No
concern for anaphylactic reaction, no significant respiratory, GI, systemic symptoms. Will screen with laboratory analysis and treat patient with Benadryl, otherwise with plan for medication discontinuation and outpatient follow-up.
*Critical Care Note
Total Time (30-74mins, 75-104mins- exclusive of procedures): Not Applicable
ED Attending Note
-
Portions of this chart may have been created with voice recognition software.� Occasional wrong word or��sound alike� substitutions may have occurred due to the inherent limitations of voice recognition software.
Discharge Plan
Departure
Prescriptions:
No Action
Sprycel 100 mg Tablet
100 mg PO DAILY
Patient Comments:
10/09/23: Patient states she takes this medication, but has not been able to get it refilled.
diphenhydramine HCl [Banophen] 25 mg Capsule
50 mg PO Q6
lorazepam 0.5 mg tablet
1 mg PO Q6HPRN PRN (Reason: anxiety)
Referrals:
NONE,* [Family Provider] -
Interventions
Interventions:
*Risk Screen - Suicide Last Done: 11/24/23 16:55
*General Assessment Last Done: 11/24/23 16:55
*Neglect/Abuse Screening Last Done: 11/24/23 16:55
TP-Rjzepp-Omeymjfhyz Assessment Last Done: 11/24/23 19:37
Discharge Date and Time
Print Language: ARABIC
[2023-11-24 19:43] VITALS: BMI 24.3
[2023-11-24 19:54] LABS: Hemoglobin 10.4 g/dL (12.0-16.0); Mean Corp Hgb Conc. 33.5 g/dL (33.0-37.0); Mean Corpuscular Hgb 28.2 pg (27.0-31.0); Mean Platelet Volume 9.4 fL (7.4-10.4); Platelet Count 121 10^3/uL (130-400); Red Blood Cell Count 3.69 10^6/uL (4.20-5.40); White Blood Cell Count 5.2 10^3/uL (4.8-10.8)
[2023-11-24 20:01] LABS: ALT (SGPT) 40 U/L (0-35); AST (SGOT) 36 U/L (14-36); Albumin 4.8 g/dl (3.5-5.0); Alkaline Phosphatase 63 U/L (38-126); Blood Urea Nitrogen 15 mg/dl (7-17); Calcium 9.3 mg/dl (8.4-10.2); Carbon Dioxide 26 mmol/L (22-30); Chloride 103 mmol/L (98-107); Estimated Creatinine Clearance > 125 ml/min; Glucose 108 mg/dl (70-99); Potassium 4.5 mmol/L (3.5-5.1); Sodium 140 mmol/L (135-145); Total Bilirubin 0.9 mg/dl (0.2-1.3); Total Protein 7.1 g/dl (6.3-8.2); eGFR > 60.00
[2023-11-24 20:07] VITALS: BP 95/65
[2023-11-24 20:30] LABS: % Basophils 0.2 % (0-2); % Eosinophils 0.2 % (0-6); % Immature Granulocytes 2.5 % (0-0.5); % Lymphocytes 72.4 % (20.5-51.1); % Neutrophils 18.7 % (42.2-75.2); Absolute Immature Granulocytes 0.1 10^3/uL (0-0.05); Absolute Lymphocytes 3.7 10^3/uL (1.2-3.4); Absolute Monocytes 0.3 10^3/uL (0.1-0.6); Nucleated Red Blood Cells % 2.1 %
== END 2023-11-24 20:29 | disposition home or self-care (01) ==
LOC: EMR 16:43
PROVIDERS: EMERGENCY PHYSICIAN Student in an Organized Health Care Education/Training Program
DX: R25.1 Tremor, unspecified (principal); Z85.6 Personal history of leukemia; Z79.899 Other long term (current) drug therapy
CPT/HCPCS: 96374; 96372; 99284; 80053; 85025

== ENCOUNTER 2023-12-01 12:02 | Emergency (ER) | payer OTHER, SELFPAY ==
[2023-12-01 12:04] VITALS: BP 115/82
[2023-12-01 12:23] VITALS: BMI 21.6
[2023-12-01] MEDS: BENADRYL 50.5 MG IV (13:51)
--- NOTE | 2023-12-01 14:10 | ED.GENMED ---
History of Present Illness
General
Chief Complaint: Numbness
Time Seen by Provider: 12/01/23 12:33
History of Present Illness
History of Present Illness:
33-year-old female presents to the emergency department due to tremulousness. She is on antipsychotic medications and feels as though she developed extraparametal symptoms if she misses her Benadryl. She missed all 4 of her doses yesterday and
despite taking oral 25 mg Benadryl before arrival is concerned that she cannot control her shaking. Of note is been documented by emergency department providers as well as psychiatry at this hospital that they feel her symptoms may be artifactual.
She is requesting an IV infusion of Benadryl as opposed to IM or IV push to avoid sedating effects.
Past History
Past History
ED Past Medical History: Psychiatric (Bipolar) and Other (Leukemia)
ED Past Surgical History: None
Social History
Tobacco: Non-smoker
Alcohol: None
Personal: Single
Living: alone
Review of Systems
Review of Systems
Allergies reviewed?: Yes
All Other Systems: ROS reviewed and negative except as documented in HPI and ROS
Phy Exam
Physical Exam
Physical Exam:
GEN: Well appearing, NAD, WDWN
HEENT: Oral mucosa moist, no scleral icterus
Cardiac: Regular rate
Lung: No respiratory distress, no tachypnea
MSK: No gross deformity or injuries
Skin: Good color, no pallor or jaundice, no rashes
Neuro: AO x3, moves all extremities freely. Attention tremor in the upper extremities, no dyskinetic facial movements noted
Psych: Flat affect, pacing about the room, intention tremor to the upper extremities
Course
Orders/Labs/Results
Orders:
Orders
12/01/23 13:00
Diphenhydramine [Benadryl] 25 mg 0.9% Sodium Chloride 50 ml [Nss] 50 ml IV ONCE
Vital Signs
Initial and Last Documented VS:
Initial Vital Signs
Temp Pulse Resp BP Pulse Ox
98.0 F 78 20 115/82 98
12/01/23 12:04 12/01/23 12:04 12/01/23 12:04 12/01/23 12:04 12/01/23 12:04
Last Documented Vital Signs
Temp Pulse Resp BP Pulse Ox
98.0 F 80 18 112/80 99
12/01/23 12:04 12/01/23 14:35 12/01/23 14:35 12/01/23 14:35 12/01/23 14:35
MDM/Problems Addressed
MDM/Problems Addressed:
I do not suspicion that these are true EPS symptoms however the patient was given an IV dose of diphenhydramine with rapid improvement. I do suspect there is a psychosomatic component to this. Encouraged her to continue her home Benadryl use and
not skip any doses, discharged in stable condition
*Critical Care Note
Total Time (30-74mins, 75-104mins- exclusive of procedures): Not Applicable
ED Attending Note
-
Portions of this chart may have been created with voice recognition software.� Occasional wrong word or��sound alike� substitutions may have occurred due to the inherent limitations of voice recognition software.
Discharge Plan
Departure
Patient Disposition: Home (Routine Discharge)
Date of Disposition: 12/01/23
Time of Disposition: 14:22
Patient with high blood pressure during this ER visit?: No
Discharge Problem:
Extrapyramidal reaction
Prescriptions:
No Action
Sprycel 100 mg Tablet
100 mg PO DAILY
Patient Comments:
10/09/23: Patient states she takes this medication, but has not been able to get it refilled.
diphenhydramine HCl [Banophen] 25 mg Capsule
50 mg PO Q6
lorazepam 0.5 mg tablet
1 mg PO Q6HPRN PRN (Reason: anxiety)
Referrals:
UNKNOWN - PT DOES,NOT KNOW [Family Provider] -
Activity Restrictions/Additional Instructions:
Please take your benadryl as recommended every 6 hours
Interventions
Interventions:
*Risk Screen - Suicide Last Done: 12/01/23 12:23
*General Assessment Last Done: 12/01/23 12:23
*Neglect/Abuse Screening Last Done: 12/01/23 12:23
ED- Fall Risk Assessment Last Done: 12/01/23 12:23
*ED COVID-19 Vaccine History Last Done: 12/01/23 12:23
*Nursing Disposition Last Done: 12/01/23 14:35
ED- Neurological Assessment Last Done: 12/01/23 12:26
Discharge Date and Time
Discharge Date/Time: 12/01/23 14:36
Print Language: AUSTRIAN
[2023-12-01 14:35] VITALS: BP 112/80
== END 2023-12-01 14:36 | disposition home or self-care (01) ==
LOC: EMR 12:02
PROVIDERS: EMERGENCY PHYSICIAN Student in an Organized Health Care Education/Training Program
DX: R25.1 Tremor, unspecified (principal); T43.505A Adverse effect of unspecified antipsychotics and neuroleptics, initial encounter; F31.9 Bipolar disorder, unspecified
CPT/HCPCS: 99284; 96365

== ENCOUNTER → 2024-01-19 10:37 | Outpatient (REF) | payer OTHER, SELFPAY ==
[2024-01-21 17:17] LABS: Quantiferon NIL 0.04 IU/mL; Quantiferon TB Gold Plus Negative (Negative)
== END ==
LOC: OHS 10:37
PROVIDERS: ATTENDING PHYSICIAN Nurse Practitioner Family
DX: Z23 Encounter for immunization (principal)
CPT/HCPCS: 36415; 86480

== ENCOUNTER 2024-04-07 05:08 | Inpatient (IN) | payer OTHER, SELFPAY ==
[2024-04-06 20:20] VITALS: BMI 24.4
[2024-04-06 20:26] VITALS: BP 113/85
[2024-04-07 00:46] LABS: COVID-19 Antigen Negative (Negative)
--- NOTE | 2024-04-07 00:48 | ED.GENMED ---
History of Present Illness
<SATHYA Gates - Last Filed: 04/07/24 17:57>
General
Chief Complaint: Throat Problem
Source: patient
Exam Limitations: none
Time Seen by Provider: 04/07/24 00:36
History of Present Illness
History of Present Illness:
This is a 33 year old female that comes in with c/o sore throat. State that she started yesterday morning with a sore throat. States that it is not getting any better. States that her pain is about an 8-9/10. States that she can't eat and is
nauseated. States that this morning she started with a fever, body aches and headache. States that she had chills with the fever, nausea and headache. Denies any chest pain, SOB, abd pain, vomiting, diarrhea, dizziness, urinary burning.
Past History
<SATHYA Gates - Last Filed: 04/07/24 17:57>
Past History
ED Past Medical History: Cancer (Leukemia), Psychiatric (Bipolar, Psychotic for short time. ) and Other (Tardive Dysconesa, Pseudo Parkinsonism. )
ED Past Surgical History: None
Social History
Tobacco: Non-smoker
Alcohol: None
Personal: Single
Living: alone
Review of Systems
<SATHYA Gates - Last Filed: 04/07/24 17:57>
Review of Systems
All Other Systems: ROS reviewed and negative except as documented in HPI and ROS
Constitutional: Reports fever and chills
EENT: Reports sore throat
Respiratory: Reports no symptoms; Denies cough
Cardiac: Reports no symptoms; Denies chest pain
ABD/GI: Reports nausea; Denies abdominal pain, vomiting or diarrhea
: Reports no symptoms; Denies dysuria, frequency or urgency
Musculoskeletal: Reports no symptoms
Skin: Reports no symptoms
Neurological: Reports headache; Denies dizzy
Psychiatric: Reports no symptoms
Phy Exam
<SATHYA Gates - Last Filed: 04/07/24 17:57>
General Physical Exam
General Presentation: mild distress
General age: appears stated age
General Skin: warm and dry
General Habitus: normal
General Mental: alert
General Hydration: appears well hydrated
ENT Exam
ENT Exam: TM's normal, neck supple and other (pharynx red but negative for any exudate, Lymphadenopathy L>R, Uvula is Medline)
Eye Exam
Eye Exam: EOMI
Cardiovascular Exam
Cardiovascular Exam: regular rate/rhythm, no edema, no murmur and normal peripheral pulses
Pulmonary Exam
Pulmonary Exam: lungs clear, no respiratory distress, no rales, chest non tender, no crackles, no rhonchi, no wheezing and no cough
Gastrointestinal Exam
Gastrointestinal Exam: normal bowel sounds, non tender, soft, no organomegaly, no pulsatile mass and non distended
Musculoskeletal Exam
Musculoskeletal Exam: full ROM and no edema
Skin Exam
Skin Exam: normal color, warm/dry, no rash and no petechia
Psychiatric Exam
Psychiatric Exam: normal mood/affect
Course
<SATHYA Gates - Last Filed: 04/07/24 17:57>
Orders/Labs/Results
Orders:
Orders
04/06/24 20:32
Rapid Strep Group A Urgent
RODRICK Source: T
Specimen Description:
Date Specimen was Collected: 04/06/24
Time Specimen was Collected: 20:29
Comment: ADD ON
Throat Culture [Throat Culture, Comprehensive] Urgent
RODRICK Source: Tonsil
Specimen Description:
Date Specimen was Collected: 04/06/24
Time Specimen was Collected: 20:29
04/07/24 00:13
COVID-19 Antigen Urgent
Source: Nasal Swab
Influenza A+B Rapid Molecular Urgent
RODRICK Source: Nasal Swab
Specimen Description:
04/07/24 00:47
Acetaminophen [Tylenol] 1,000 mg PO NOW STA
Dexamethasone Sod Phosphate [Decadron] 20 mg IV NOW STA
Ketorolac [Toradol] 30 mg IV NOW STA
04/07/24 00:48
Ondansetron Injectable [Zofran] 4 mg IV NOW STA
04/07/24 00:55
0.9% Sodium Chloride 500 ml [Nss] 500 ml IV BOLUS
04/07/24 01:28
HCG, Serum Qualitative Screen Urgent
Comment: ADD ON
Monotest Urgent
04/07/24 01:58
CT Neck With Iv Contrast Urgent
Comment:
Reason For Exam: left sided peritonsillar swelling, sore throat
04/07/24 02:23
Add On- LAB Stat
Comments:: hcg
Tests Added?: hcg
04/07/24 02:43
Add On- LAB Urgent
Tests Added?: rapid strep
04/07/24 03:58
Piperacillin/Tazo 3.375 Gram [Zosyn] 3.375 gram in 50 ml IV NOW
04/07/24 04:25
Basic Metabolic Panel Urgent
Complete Blood Count/With Diff Urgent
Ferritin Urgent
Comment: ADD ON
Iron Urgent
Comment: ADD ON
Total Iron Binding Urgent
Comment: ADD ON
04/07/24 04:50
Admit/Transfer Patient As Directed
Co-Sign Provider:
Level of Care: Inpatient admission
Assign to:: Medical/Surgical
Physician / Group: Sukumar
Diagnosis: Pharyngitis, Tonsillitis, Epiglottitis
Reason for Hospitalization: Pharyngitis, Tonsillitis, Epiglottitis
Expected length of stay greater than two midnights?: Yes
ELOS- Estimated Length of Stay in days: 2
I certify the patient meets the requirements for IP care: Yes
04/07/24 04:51
Code Status As Directed
Resuscitation Status: Full Code
PRN Pain Medication Management As Directed
May give lesser potent ordered pain med per pt: Yes
preference::
Protocol:: Medication orders for pain may be administered in a
manner that supports deferring to patient preference
when the pt is:
- Requesting an ordered lesser potent pain medication.
Least to most potent pain medications are defined
as: acetaminophen < NSAID < tramadol < opioids
(morphine, oxycodone, hydromorphone).
- Requesting a lesser dose of the same medication IF
ORDERED.
- Requesting a less intrusive route of administration
if both routes are prescribed by the provider (PO <
IV).
04/07/24 05:00
Flush (0.9% Sodium Chloride) [Flush (Nss)] See Dose Instructions IV PER PROTOCOL
04/07/24 Breakfast
Clear Liquid
At Your Request: Limited, Heating Plant Superintendent Required
04/07/24 07:21
Acetaminophen [Tylenol] 650 mg PO Q4HPRN PRN
Ketorolac [Toradol] 15 mg IV Q6HPRN PRN
Lactated Ringers [Lr] 1,000 ml IV 100 mls/hr
04/07/24 07:21
Consult Notification Routine
Specialty to Notify: ENT
Date consulting provider notified: 04/07/24
Time consulting provider notified: 07:39
Notified:: Provider
ENT CONSULT Routine
Consulting Provider: Sasha Staton
Was physician already notified: No
Reason for Consult: Pharyngitis, Tonsillitis, Epiglottitis
Activity As Directed
Activity Level: Ambulate
I/O [Intake/ Output] As Directed
Frequency: Per unit guidelines
Pneumatic Compression Sleeves As Directed
Type: Knee high
Vital Signs As Directed
Frequency: Per unit guidelines
Oxygen Therapy [O2 Therapy] [RESP] Routine
Titrate/Wean O2 to maintain O2 sat greater than (%): 94
DX Deep Vein Thrombosis Video Routine
04/07/24 10:00
Ampicillin/Sulbactam 3 G [Unasyn] 3 gm 0.9% Sodium Chloride 100 ml [Nss] 100 ml IV Q6H
Abnormal Lab Results
04/07/24
04:25
WBC 0.5 L* 10^3/uL
(4.8-10.8)
RBC 2.90 L 10^6/uL
(4.20-5.40)
Hgb 8.6 L g/dL
(12.0-16.0)
Hct 25.9 L %
(37.0-47.0)
RDW 17.5 H %
(11.5-14.5)
Plt Count 33 L 10^3/uL
(130-400)
Absolute Neuts (auto) 0.1 L* 10^3/uL
(1.4-6.5)
Absolute Lymphs (auto) 0.4 L 10^3/uL
(1.2-3.4)
Absolute Monos (auto) 0.0 L 10^3/uL
(0.1-0.6)
Immature Gran % 2.0 H %
(0-0.5)
Neutrophils % 10.2 L %
(42.2-75.2)
Lymphocytes % 87.8 H %
(20.5-51.1)
Monocytes % 0.0 L %
(1.7-9.3)
Glucose 152 H mg/dl
(70-99)
Calcium 8.2 L mg/dl
(8.4-10.2)
TIBC 212 L ug/dl
(265-497)
Ferritin 219.0 H ng/ml
(6.24-137)
04/07/24 04:25
04/07/24 04:25
COVID Negative, Negative for Influenza, mono negative, HCG negative.
Vital Signs
Initial and Last Documented VS:
Initial Vital Signs
Temp Pulse Resp BP Pulse Ox
100.9 F H 89 16 113/85 99
04/06/24 20:26 04/06/24 20:26 04/06/24 20:26 04/06/24 20:26 04/06/24 20:26
Last Documented Vital Signs
Temp Pulse Resp BP Pulse Ox
98 F 70 16 96/66 97
04/08/24 08:47 04/08/24 08:47 04/08/24 08:47 04/08/24 08:47 04/08/24 08:47
<Billy Haley, DO - Last Filed: 04/08/24 14:15>
Orders/Labs/Results
Orders:
Orders
04/06/24 20:32
Rapid Strep Group A Urgent
RODRICK Source: T
Specimen Description:
Date Specimen was Collected: 04/06/24
Time Specimen was Collected: 20:29
Comment: ADD ON
Throat Culture [Throat Culture, Comprehensive] Urgent
RODRICK Source: Tonsil
Specimen Description:
Date Specimen was Collected: 04/06/24
Time Specimen was Collected: 20:29
04/07/24 00:13
COVID-19 Antigen Urgent
Source: Nasal Swab
Influenza A+B Rapid Molecular Urgent
RODRICK Source: Nasal Swab
Specimen Description:
04/07/24 00:47
Acetaminophen [Tylenol] 1,000 mg PO NOW STA
Dexamethasone Sod Phosphate [Decadron] 20 mg IV NOW STA
Ketorolac [Toradol] 30 mg IV NOW STA
04/07/24 00:48
Ondansetron Injectable [Zofran] 4 mg IV NOW STA
04/07/24 00:55
0.9% Sodium Chloride 500 ml [Nss] 500 ml IV BOLUS
04/07/24 01:28
HCG, Serum Qualitative Screen Urgent
Comment: ADD ON
Monotest Urgent
04/07/24 01:58
CT Neck With Iv Contrast Urgent
Comment:
Reason For Exam: left sided peritonsillar swelling, sore throat
04/07/24 02:23
Add On- LAB Stat
Comments:: hcg
Tests Added?: hcg
04/07/24 02:43
Add On- LAB Urgent
Tests Added?: rapid strep
04/07/24 03:58
Piperacillin/Tazo 3.375 Gram [Zosyn] 3.375 gram in 50 ml IV NOW
04/07/24 04:25
Basic Metabolic Panel Urgent
Complete Blood Count/With Diff Urgent
Ferritin Urgent
Comment: ADD ON
Iron Urgent
Comment: ADD ON
Total Iron Binding Urgent
Comment: ADD ON
04/07/24 04:50
Admit/Transfer Patient As Directed
Co-Sign Provider:
Level of Care: Inpatient admission
Assign to:: Medical/Surgical
Physician / Group: Sukumar
Diagnosis: Pharyngitis, Tonsillitis, Epiglottitis
Reason for Hospitalization: Pharyngitis, Tonsillitis, Epiglottitis
Expected length of stay greater than two midnights?: Yes
ELOS- Estimated Length of Stay in days: 2
I certify the patient meets the requirements for IP care: Yes
04/07/24 04:51
Code Status As Directed
Resuscitation Status: Full Code
PRN Pain Medication Management As Directed
May give lesser potent ordered pain med per pt: Yes
preference::
Protocol:: Medication orders for pain may be administered in a
manner that supports deferring to patient preference
when the pt is:
- Requesting an ordered lesser potent pain medication.
Least to most potent pain medications are defined
as: acetaminophen < NSAID < tramadol < opioids
(morphine, oxycodone, hydromorphone).
- Requesting a lesser dose of the same medication IF
ORDERED.
- Requesting a less intrusive route of administration
if both routes are prescribed by the provider (PO <
IV).
04/07/24 05:00
Flush (0.9% Sodium Chloride) [Flush (Nss)] See Dose Instructions IV PER PROTOCOL
04/07/24 Breakfast
Clear Liquid
At Your Request: Limited, Heating Plant Superintendent Required
04/07/24 07:21
Acetaminophen [Tylenol] 650 mg PO Q4HPRN PRN
Ketorolac [Toradol] 15 mg IV Q6HPRN PRN
Lactated Ringers [Lr] 1,000 ml IV 100 mls/hr
04/07/24 07:21
Consult Notification Routine
Specialty to Notify: ENT
Date consulting provider notified: 04/07/24
Time consulting provider notified: 07:39
Notified:: Provider
ENT CONSULT Routine
Consulting Provider: Sasha Staton
Was physician already notified: No
Reason for Consult: Pharyngitis, Tonsillitis, Epiglottitis
Activity As Directed
Activity Level: Ambulate
I/O [Intake/ Output] As Directed
Frequency: Per unit guidelines
Pneumatic Compression Sleeves As Directed
Type: Knee high
Vital Signs As Directed
Frequency: Per unit guidelines
Oxygen Therapy [O2 Therapy] [RESP] Routine
Titrate/Wean O2 to maintain O2 sat greater than (%): 94
DX Deep Vein Thrombosis Video Routine
04/07/24 10:00
Ampicillin/Sulbactam 3 G [Unasyn] 3 gm 0.9% Sodium Chloride 100 ml [Nss] 100 ml IV Q6H
Abnormal Lab Results
04/07/24
04:25
WBC 0.5 L* 10^3/uL
(4.8-10.8)
RBC 2.90 L 10^6/uL
(4.20-5.40)
Hgb 8.6 L g/dL
(12.0-16.0)
Hct 25.9 L %
(37.0-47.0)
RDW 17.5 H %
(11.5-14.5)
Plt Count 33 L 10^3/uL
(130-400)
Absolute Neuts (auto) 0.1 L* 10^3/uL
(1.4-6.5)
Absolute Lymphs (auto) 0.4 L 10^3/uL
(1.2-3.4)
Absolute Monos (auto) 0.0 L 10^3/uL
(0.1-0.6)
Immature Gran % 2.0 H %
(0-0.5)
Neutrophils % 10.2 L %
(42.2-75.2)
Lymphocytes % 87.8 H %
(20.5-51.1)
Monocytes % 0.0 L %
(1.7-9.3)
Glucose 152 H mg/dl
(70-99)
Calcium 8.2 L mg/dl
(8.4-10.2)
TIBC 212 L ug/dl
(265-497)
Ferritin 219.0 H ng/ml
(6.24-137)
04/07/24 04:25
04/07/24 04:25
Vital Signs
Initial and Last Documented VS:
Initial Vital Signs
Temp Pulse Resp BP Pulse Ox
100.9 F H 89 16 113/85 99
04/06/24 20:26 04/06/24 20:26 04/06/24 20:26 04/06/24 20:26 04/06/24 20:26
Last Documented Vital Signs
Temp Pulse Resp BP Pulse Ox
98 F 70 16 96/66 97
04/08/24 08:47 04/08/24 08:47 04/08/24 08:47 04/08/24 08:47 04/08/24 08:47
<Kristine Gonzáles, DO - Last Filed: 04/07/24 04:01>
Orders/Labs/Results
Orders:
Orders
04/06/24 20:32
Rapid Strep Group A Urgent
RODRICK Source: T
Specimen Description:
Date Specimen was Collected: 04/06/24
Time Specimen was Collected: 20:29
Comment: ADD ON
Throat Culture [Throat Culture, Comprehensive] Urgent
RODRICK Source: Tonsil
Specimen Description:
Date Specimen was Collected: 04/06/24
Time Specimen was Collected: 20:29
04/07/24 00:13
COVID-19 Antigen Urgent
Source: Nasal Swab
Influenza A+B Rapid Molecular Urgent
RODRICK Source: Nasal Swab
Specimen Description:
04/07/24 00:47
Acetaminophen [Tylenol] 1,000 mg PO NOW STA
Dexamethasone Sod Phosphate [Decadron] 20 mg IV NOW STA
Ketorolac [Toradol] 30 mg IV NOW STA
04/07/24 00:48
Ondansetron Injectable [Zofran] 4 mg IV NOW STA
04/07/24 00:55
0.9% Sodium Chloride 500 ml [Nss] 500 ml IV BOLUS
04/07/24 01:28
HCG, Serum Qualitative Screen Urgent
Comment: ADD ON
Monotest Urgent
04/07/24 01:58
CT Neck With Iv Contrast Urgent
Comment:
Reason For Exam: left sided peritonsillar swelling, sore throat
04/07/24 02:23
Add On- LAB Stat
Comments:: hcg
Tests Added?: hcg
04/07/24 02:43
Add On- LAB Urgent
Tests Added?: rapid strep
04/07/24 03:58
Piperacillin/Tazo 3.375 Gram [Zosyn] 3.375 gram in 50 ml IV NOW
04/07/24 04:25
Basic Metabolic Panel Urgent
Complete Blood Count/With Diff Urgent
Ferritin Urgent
Comment: ADD ON
Iron Urgent
Comment: ADD ON
Total Iron Binding Urgent
Comment: ADD ON
04/07/24 04:50
Admit/Transfer Patient As Directed
Co-Sign Provider:
Level of Care: Inpatient admission
Assign to:: Medical/Surgical
Physician / Group: Sukmuar
Diagnosis: Pharyngitis, Tonsillitis, Epiglottitis
Reason for Hospitalization: Pharyngitis, Tonsillitis, Epiglottitis
Expected length of stay greater than two midnights?: Yes
ELOS- Estimated Length of Stay in days: 2
I certify the patient meets the requirements for IP care: Yes
04/07/24 04:51
Code Status As Directed
Resuscitation Status: Full Code
PRN Pain Medication Management As Directed
May give lesser potent ordered pain med per pt: Yes
preference::
Protocol:: Medication orders for pain may be administered in a
manner that supports deferring to patient preference
when the pt is:
- Requesting an ordered lesser potent pain medication.
Least to most potent pain medications are defined
as: acetaminophen < NSAID < tramadol < opioids
(morphine, oxycodone, hydromorphone).
- Requesting a lesser dose of the same medication IF
ORDERED.
- Requesting a less intrusive route of administration
if both routes are prescribed by the provider (PO <
IV).
04/07/24 05:00
Flush (0.9% Sodium Chloride) [Flush (Nss)] See Dose Instructions IV PER PROTOCOL
04/07/24 Breakfast
Clear Liquid
At Your Request: Limited, Heating Plant Superintendent Required
04/07/24 07:21
Acetaminophen [Tylenol] 650 mg PO Q4HPRN PRN
Ketorolac [Toradol] 15 mg IV Q6HPRN PRN
Lactated Ringers [Lr] 1,000 ml IV 100 mls/hr
04/07/24 07:21
Consult Notification Routine
Specialty to Notify: ENT
Date consulting provider notified: 04/07/24
Time consulting provider notified: 07:39
Notified:: Provider
ENT CONSULT Routine
Consulting Provider: Sasha Staton
Was physician already notified: No
Reason for Consult: Pharyngitis, Tonsillitis, Epiglottitis
Activity As Directed
Activity Level: Ambulate
I/O [Intake/ Output] As Directed
Frequency: Per unit guidelines
Pneumatic Compression Sleeves As Directed
Type: Knee high
Vital Signs As Directed
Frequency: Per unit guidelines
Oxygen Therapy [O2 Therapy] [RESP] Routine
Titrate/Wean O2 to maintain O2 sat greater than (%): 94
DX Deep Vein Thrombosis Video Routine
04/07/24 10:00
Ampicillin/Sulbactam 3 G [Unasyn] 3 gm 0.9% Sodium Chloride 100 ml [Nss] 100 ml IV Q6H
Abnormal Lab Results
04/07/24
04:25
WBC 0.5 L* 10^3/uL
(4.8-10.8)
RBC 2.90 L 10^6/uL
(4.20-5.40)
Hgb 8.6 L g/dL
(12.0-16.0)
Hct 25.9 L %
(37.0-47.0)
RDW 17.5 H %
(11.5-14.5)
Plt Count 33 L 10^3/uL
(130-400)
Absolute Neuts (auto) 0.1 L* 10^3/uL
(1.4-6.5)
Absolute Lymphs (auto) 0.4 L 10^3/uL
(1.2-3.4)
Absolute Monos (auto) 0.0 L 10^3/uL
(0.1-0.6)
Immature Gran % 2.0 H %
(0-0.5)
Neutrophils % 10.2 L %
(42.2-75.2)
Lymphocytes % 87.8 H %
(20.5-51.1)
Monocytes % 0.0 L %
(1.7-9.3)
Glucose 152 H mg/dl
(70-99)
Calcium 8.2 L mg/dl
(8.4-10.2)
TIBC 212 L ug/dl
(265-497)
Ferritin 219.0 H ng/ml
(6.24-137)
04/07/24 04:25
04/07/24 04:25
Vital Signs
Initial and Last Documented VS:
Initial Vital Signs
Temp Pulse Resp BP Pulse Ox
100.9 F H 89 16 113/85 99
04/06/24 20:26 04/06/24 20:26 04/06/24 20:26 04/06/24 20:26 04/06/24 20:26
Last Documented Vital Signs
Temp Pulse Resp BP Pulse Ox
98 F 70 16 96/66 97
04/08/24 08:47 04/08/24 08:47 04/08/24 08:47 04/08/24 08:47 04/08/24 08:47
<SATHYA Gates - Last Filed: 04/07/24 17:57>
MDM/Problems Addressed
Differential Diagnosis Includes:
Peritonsillar abscess, Wilcox, COVID, Influenza
MDM/Problems Addressed:
This is a 33 year old female that comes in with co sore throat. States that this started yesterday and today it was worse. States that she also has a fever, headache, body aches
Will check COVID, Influenza, Wilcox. and medicate witih steroids, Toradol and Tylenol
Chronic conditions affecting care: Cancer (Leukemia)
Acute Exacerbation and/or Progression of Chronic Illness:
NA
<SATHYA Gates - Last Filed: 04/07/24 17:57>
*Pulse Oximetry
Patient hypoxic: no
*EKG
Interpreted by ED Provider?: NA
Rate: EKG- N/A
*Oil Distributor Interpretation
Rate: Oil Distributor- N/A
*Critical Care Note
Total Time (30-74mins, 75-104mins- exclusive of procedures): Not Applicable
<Kristine Gonzáles DO - Last Filed: 04/07/24 04:01>
*Radiology
Radiology exam reviewed: radiology read reviewed
ED Attending Note
<SATHYA Gates - Last Filed: 04/07/24 17:57>
-
Portions of this chart may have been created with voice recognition software.� Occasional wrong word or��sound alike� substitutions may have occurred due to the inherent limitations of voice recognition software.
<Billy Haley DO - Last Filed: 04/08/24 14:15>
ED Attending Note
Patient seen and examined by attending physician: Yes
ED Attending Note:
I reviewed and agree with history treatment plan by Kathy Soto. My exam revealed 33-year-old female with bilateral cervical lymphadenopathy, worse on left side, peritonsillar erythema. Will check CT neck to evaluate for peritonsillar abscess.
Possibly viral cause as well.
CT neck shows tonsillitis, epiglottitis. Pt with neutropenia. Admit to hospitalist. TODD mora.
Discharge Plan
Departure
Patient Disposition: Admit
Date of Disposition: 04/07/24
Time of Disposition: 03:59
Admit to: Med/Surg
Admit to doctor: Sukumar
Presentation/result/management discussed w/ accepting MD/DO: Hospitalist
Patient with high blood pressure during this ER visit?: No
Condition: Good
Covid-19: Not Applicable
Discharge Problem:
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
Interventions
Interventions:
*Risk Screen - Suicide Last Done: 04/06/24 20:26
*General Assessment Last Done: 04/07/24 00:05
*Neglect/Abuse Screening Last Done: 04/06/24 20:26
ED- Fall Risk Assessment Last Done: 04/07/24 00:06
*ED COVID-19 Vaccine History Last Done: 04/07/24 00:05
ED-EENT Assessment Last Done: 04/07/24 00:06
ED- Pulmonary Assessment Last Done: 04/07/24 00:06
[2024-04-07] MEDS: TYLENOL 1000 MG PO (01:00)
[2024-04-07] MEDS: NSS 500 IV (01:11)
[2024-04-07] MEDS: ZOFRAN 4 MG IV (01:12)
[2024-04-07] MEDS: TORADOL 30 MG IV (01:13)
[2024-04-07] MEDS: DECADRON 20 MG IV (01:15)
[2024-04-07 02:05] LABS: Monotest Negative (Negative)
[2024-04-07 02:32] LABS: HCG, Serum Qualitative Screen Negative
[2024-04-07] MEDS: ZOSYN 50 IV (04:27)
--- NOTE | 2024-04-07 04:53 | HPS.HSE ---
Addendum entered and electronically signed by Omar Patino DO 04/07/24 06:36:
ED labs resulted. Stable anemia. New neutropenia with ANC = 100.
Neutropenic precautions.
Add vancomycin for now.
ID and Oncology evaluations for additional recommendations.
Original Note:
Family Physician
-
Family Physician: SATHYA Hutchinson
Chief Complaint
-
Sore Throat
History of Present Illness
Patient is a 33y F with PMH significant for CML who presents to ED complaining of sore throat. Patient states she started with sore throat - mostly on the L a few days ago. She initially had no fevers, chills or other symptoms. She monitored
her symptoms for a few days and noted no improvement. Today she did develop muscle aches, feverish feeling and fatigue. Patient presented to the ED for further evaluation and treatment.
Patient was tested for COVID, influenza, Strep and mono - all of which were negative.
CT was done in the ED showing L > R tonsillitis, pharyngitis and epiglottitis. No discrete / drainable abscess.
Medical History
Past Medical History
Past Medical History: Reports Other
Additional Past Medical History:
Chronic Myeloid Leukemia
Bipolar Disorder with Isolated Episode of Psychosis
Tardive Dyskinesia secondary to Antipsychotics
Past Surgical History: Reports None
Social History
Tobacco: Non-smoker
Alcohol: None
Drug: None
Family History
Family History: Not pertinent
Allergies / Home Medications
Allergies reflects when Allergies were last updated in [employer].
Home Medications with original date entered in [employer]
Allergy/Medication List:
Allergies
Allergy/AdvReac Type Severity Reaction Status Date / Time
amantadine Allergy Unknown Verified 04/06/24 20:26
fluphenazine [From Prolixin] Allergy Unknown Verified 04/06/24 20:26
haloperidol [From Haldol] Allergy Unknown Verified 04/06/24 20:26
Home Medications
dasatinib 100 mg tablet (Sprycel) 80 mg PO DAILY LEUKEMIA 10/09/23
Review of Systems
-
History Source: Patient
A 12 point ROS was completed and negative except as noted: Yes
Constitutional: Reports Fever, Fatigue and Chills
EENT: Reports Sore Throat; Denies Runny Nose
Respiratory: Denies Cough or Trouble Breathing
Cardiac: Denies Chest Pain or Palpitations
Abdomen/GI: Denies Abdominal Pain, Nausea, Vomiting or Diarrhea
: Denies Dysuria or Frequency
Neurological: Denies Dizzy or Headache
Physical Exam
Vital Signs
Vital Signs
Temp Pulse Resp BP Pulse Ox
100.9 F H 89 16 113/85 99
04/06/24 20:26 04/06/24 20:26 04/06/24 20:26 04/06/24 20:26 04/07/24 00:06
Physical Exam
General: Other (33y F in no acute distress.)
HEENT: Other (Erythema of the posterior oroharynx. Edema L > R. Pos cervical adenopathy / tenderness on the L.)
Respiratory: Clear; No Wheezes, Rales or Rhonchi
Cardiac: S1/S2 and Regular Rhythm; No Murmur
GI: Soft, Non Tender, Non Distended and Normal Bowel Sounds
Musculoskeletal: No Clubbing, No Cyanosis and No Edema
Neuro: AO x 3
Impression/Plan
-
A/P: Patient is a 33y F with PMH significant for CML on dasatinib who presents to ED complaining of sore throat x several days.
Pharyngitis, Tonsillitis, Epiglottitis
- Admit for further evaluation and treatment.
- Received dose of dexamethasone in the ED.
- Continue IV abx with Unasyn.
- ENT evaluation for additional recommendations.
- Supportive care, IVFs, pain control, etc.
CML
- Initial labs pending. Follow-up CBC.
- Hold dasatinib acutely given active infection.
Bipolar
- Stable. Isolated prior instance of psychosis.
- Not on any chronic mood stabilizing meds, etc.
- Prior adverse reaction / tardive dyskinesia with antipsychotics.
- Follow for any changes in mood.
DVT Prophylaxis: SCDs
Code Status: Full
[2024-04-07 05:34] LABS: Blood Urea Nitrogen 8 mg/dl (7-17); Calcium 8.2 mg/dl (8.4-10.2); Carbon Dioxide 23 mmol/L (22-30); Chloride 101 mmol/L (98-107); Estimated Creatinine Clearance > 125 ml/min; Glucose 152 mg/dl (70-99); Potassium 4.2 mmol/L (3.5-5.1); Sodium 135 mmol/L (135-145); eGFR > 60.00
[2024-04-07 05:59] LABS: % Lymphocytes 87.8 % (20.5-51.1); % Neutrophils 10.2 % (42.2-75.2); Absolute Lymphocytes 0.4 10^3/uL (1.2-3.4); Absolute Neutrophils 0.1 10^3/uL (1.4-6.5); Hematocrit 25.9 % (37.0-47.0); Hemoglobin 8.6 g/dL (12.0-16.0); Mean Corp Hgb Conc. 33.2 g/dL (33.0-37.0); Mean Corpuscular Hgb 29.7 pg (27.0-31.0); Mean Corpuscular Volume 89.3 fL (81.0-99.0); Mean Platelet Volume 8.2 fL (7.4-10.4); Nucleated Red Blood Cells % 0 %; Platelet Count 33 10^3/uL (130-400); Red Cell Dist. Width 17.5 % (11.5-14.5); White Blood Cell Count 0.5 10^3/uL (4.8-10.8)
[2024-04-07 07:55] VITALS: BP 90/63
[2024-04-07] MEDS: LR 1000 IV ×2 (08:20→23:25)
[2024-04-07] MEDS: VANCOCIN 540 MG IV (08:35)
--- NOTE | 2024-04-07 09:14 | CON.ONC ---
Impression
Impression
CML
pancytopenia
hemolysisi less likely with normal LFTs
neutropenic fever
L > R tonsillitis, pharyngitis and epiglottitis
Plan
Plan
f/u ENT, ID consults
pain management
IV abx
hold dasatinib
neutropenic precautions
check B12, folate, retic, LDH, DIC
Daily CBC with diff
Transfuse Hgb <7 or as needed for sxs anemia
Transfuse platelets <20 with NF or as needed for bleeding
avoid nsaids, antiplatelet, and anticoagulation with platelet count <50,000
OP follow up with Dr. Guajardo to determine if/when dasatinib can be resumed
Patient History
History of Present Illness
33yo F wtih CML diagnosed in May [address] Yanez presented with a sore throat. Her symptoms started mostly on the left side of her throat and developed myalgias, subjective fevers, and fatigue with prompted her to seek further
evaluation in the ER. Initial evaluation was negative for COVID, influenza, Strep and mono. Her CT showed L > R tonsillitis, pharyngitis and epiglottitis. She has been admitted, s/p deamethasone 20mg IV, started on IVF, analgesia, and IVabx. ENT
and ID consults are pending.
She is known to Dr. Yanez for management of CML. She initially presented in May 2023 with WBC 307,000 and massive splenomegaly. She was subsequently transferred to [facility] and underwent BMBx that was diagnostic for CML with 12% blasts. She was
started on dasatinib 100mg daily. Her course was initially c/b rash thought to be from dasatinib, however, now resolved and she has continued on dasatinib 80mg daily. Her most recent OP CBC 02/09/2024 showed WBC 5.22, ANC 2.1, Hgb 11.1, Hct 35.9,
platelet 286,000.
Past-Medical/Surgical History
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
PSH denies
Social non smoker, denies ETOH or recreational drugs
Patient Medication
�Medication �Instructions �Recorded �Confirmed �Last Taken �Type
dasatinib 100 mg tablet (Sprycel) 80 mg PO DAILY LEUKEMIA 10/09/23 04/07/24 04/06/24 12:00 History
Active Medications
Generic Name Dose Route Start Last Admin
Trade Name Freq PRN Reason Stop Dose Admin
Acetaminophen 650 mg 04/07/24 07:21
Acetaminophen 325 Mg Tablet PO 05/05/24 07:20
Q4HPRN PRN
Mild Pain / Temp > 101
Ampicillin Sodium/Sulbactam 120 mls @ 240 mls/hr 04/07/24 10:00
Sodium 3 gm/ Sodium Chloride IV
Q6H VETO
Lactated Ringer's 1,000 mls @ 100 mls/hr 04/07/24 07:21 04/07/24 08:20
Lr IV 1,000 mls
.Q10H VETO Administration
Vancomycin HCl 1 each/ Device 0 mls @ 0 mls/hr 04/07/24 07:21
IV
PER PROTOCOL VETO
As Directed
Vancomycin HCl 2,000 mg/ 540 mls @ 270 mls/hr 04/07/24 07:32 04/07/24 08:35
Sodium Chloride IV 04/07/24 09:31 540 mls
NOW STA Administration
Ketorolac Tromethamine 15 mg 04/07/24 07:21
Ketorolac 15 Mg/Ml Injection IV 04/12/24 07:20
Q6HPRN PRN
Moderate Pain
Sodium Chloride 0 flush 04/07/24 05:00
Sodium Chloride 0.9% (Flush) Syringe IV 05/05/24 04:59
PER PROTOCOL VETO
Review of Systems
-
ROS notable for HPI, otherwise negative
Physical Exam
-
HEENT: Erythema of the posterior oropharynx. cervical adenopathy
Respiratory: Clear; No Wheezes, Rales or Rhonchi
Cardiac: S1/S2 and Regular Rhythm; No Murmur
GI: Soft, Non Tender, Non Distended
Musculoskeletal: No Clubbing, No Cyanosis and No Edema
Neuro: AO x 3
Labs
Lab Results
WBC 0.5 10^3/uL (4.8-10.8) L* 04/07/24 04:25
RBC 2.90 10^6/uL (4.20-5.40) L 04/07/24 04:25
Hgb 8.6 g/dL (12.0-16.0) L 04/07/24 04:25
Hct 25.9 % (37.0-47.0) L 04/07/24 04:25
MCV 89.3 fL (81.0-99.0) 04/07/24 04:25
MCH 29.7 pg (27.0-31.0) 04/07/24 04:25
MCHC 33.2 g/dL (33.0-37.0) 04/07/24 04:25
RDW 17.5 % (11.5-14.5) H 04/07/24 04:25
Plt Count 33 10^3/uL (130-400) L 04/07/24 04:25
MPV 8.2 fL (7.4-10.4) 04/07/24 04:25
Abs Immat Gran (auto) 0.0 10^3/uL (0-0.05) 04/07/24 04:25
Absolute Neuts (auto) 0.1 10^3/uL (1.4-6.5) L* 04/07/24 04:25
Absolute Lymphs (auto) 0.4 10^3/uL (1.2-3.4) L 04/07/24 04:25
Absolute Monos (auto) 0.0 10^3/uL (0.1-0.6) L 04/07/24 04:25
Absolute Eos (auto) 0.0 10^3/uL (0-0.7) 04/07/24 04:25
Absolute Basos (auto) 0.0 10^3/uL (0-0.2) 04/07/24 04:25
Immature Gran % 2.0 % (0-0.5) H 04/07/24 04:25
Neutrophils % 10.2 % (42.2-75.2) L 04/07/24 04:25
Lymphocytes % 87.8 % (20.5-51.1) H 04/07/24 04:25
Monocytes % 0.0 % (1.7-9.3) L 04/07/24 04:25
Eosinophils % 0.0 % (0-6) 04/07/24 04:25
Basophils % 0.0 % (0-2) 04/07/24 04:25
Creatinine 0.6 mg/dL (0.6-1.0) 04/07/24 04:25
Vital Signs
Vital Signs
Temp Pulse Resp BP Pulse Ox
97.7 F 65 17 90/63 97
04/07/24 08:03 04/07/24 08:00 04/07/24 08:00 04/07/24 07:55 04/07/24 08:16
--- NOTE | 2024-04-07 09:37 | PHA.VAN.IN ---
Assessment
- Assessment
Renal Function: Appears similar to baseline
Maximum Temperature: 100.9
Minimum Temperature: 97.7
Concomitant Antimicrobials: ampicillin-sulbactam
AUC Dosing Plan
- Dosing Variables
Dosing Weight (kg): 72.8
Dosing CrCl (ml/min): 125
Vd coefficient (L/kg): 0.7
- Empiric Dosing
Initial / Loading Dose: vancomycin 2000 mg x 1
Maintenance Regimen: vancomycin 1250 mg q12h
Estimated AUC (mcg*h/mL): 490
Estimated Peak (mcg*h/mL): 33.7
Estimated Trough (mcg/ml): 10.8
Estimated Half Life (H): 6.4
- Monitoring
No levels ordered at this time: consider levels in next few days
Pharmacokinetics Vancomycin I
- -
Patient Age: 33
Patient Sex: Female
Vancomycin Day #: 1
Indication: Neutropenic Fever
Requesting Provider: Omar Patino
Pertinent Antimicrobial Allergies:
none
Height / Weight:
Height 5 ft 8 in
Actual Weight 72.8 kg
IBW in k.9
Adjusted BW in k.5
Pertinent Past Medical History: CML, neutropenia
- Vital Signs / Lab Results
Temp Pulse Resp BP Pulse Ox
97.7 F 65 17 90/63 97
04/07/24 08:03 04/07/24 08:00 04/07/24 08:00 04/07/24 07:55 04/07/24 08:16
Lab Results - Hematology
04/07/24
04:25
WBC 0.5 L*
Lab Results - Chemistry
04/07/24
04:25
BUN 8
Creatinine 0.6
Estimated Creat Clear > 125
Microbiology Results
04/06/24 20:32 Streptococcus Rapid Screen - Final
Throat/Pharynx Rapid Strep Screen (Group A) Negative
04/07/24 00:13 Influenza Types A & B (THOMAS) - Final
Nasal Swab Negative for Influenza A & B, NAAT
Negative results must be combined with clinical observations
and patient history.
Nucleic Acid Amplification test (NAAT)performed on the
[employer] platform.
--- NOTE | 2024-04-07 09:44 | CON.MD ---
Consultation - Medical
-
Pt seen for severe throat pain, and to rule out epiglottitis.
Pt seen and full consult dictated.
Laryngoscopy performed at bedside.
There is no epiglottis or airway compromise.
There is significant tonsillitis, left worse than right, but no abscess.
Agree with IV antibiotics, steroids and hydration until she improves enough to take adequate PO's at home
[2024-04-07 10:34] LABS: Iron 47 ug/dl (37-170)
--- NOTE | 2024-04-07 10:39 | W.PN.HOSP.TC ---
Today's Communication/Plan
-
IV antibiotics per
Speech and swallow evaluation
Advance diet as tolerates.
Hold Dasatinib
Assessment / Plan
Assessment / Plan
Impression:
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
Acute pharyngitis/tonsillitis.
CML.
Immunosuppressed status.
Leukopenia.
Chronic anemia.
Thrombocytopenia
Bipolar disorder with history of psychosis
Plan:
Pharyngitis, tonsillitis
CT neck findings consistent with bilateral tonsillitis, left-sided pharyngitis. Concerning for phlegmon and epiglottitis
ENT input appreciated.
Laryngoscopy performed with no evidence of epiglottitis or airway compromise. There is a significant tonsillitis, left worse than right with no evidence of abscess.
Initiated on IV antibiotics vancomycin/Unasyn pending cultures
ID consultation
Continue liquid diet. Advance as tolerated
Speech and swallow evaluation
Follow WBC
Hold Dasatinib acutely
Neutropenic precautions
CML.
Noted for pancytopenia
Neutropenia WBC 0.5
Hold Dasatinib
Oncology consultation
Follow CBC
Bipolar
- Stable. Isolated prior instance of psychosis.
- Not on any chronic mood stabilizing meds, etc.
- Prior adverse reaction / tardive dyskinesia with antipsychotics.
- Follow for any changes in mood.
DVT Prophylaxis: SCDs
Code Status: Full
Anticipated Discharge: 24 - 48 hours
Subjective/Interval History
-
Date of Service: April 07, 2024
Objective Data
-
Labs:
Laboratory Results
04/07/24
04:25
WBC 0.5 L*
Hgb 8.6 L
Hct 25.9 L
Plt Count 33 L
Sodium 135
Potassium 4.2
Chloride 101
Carbon Dioxide 23
BUN 8
Creatinine 0.6
Glucose 152 H
Calcium 8.2 L
Vital Signs:
Vital Signs
Temp Pulse Resp BP Pulse Ox
97.7 F 73 17 90/63 97
04/07/24 08:03 04/07/24 10:15 04/07/24 08:00 04/07/24 07:55 04/07/24 10:00
Physical Exam
-
General: Well Developed and No Apparent Distress
HEENT: Normocephalic, Atraumatic and Moist Mucous Membranes
Respiratory: Clear to Auscultation
Cardiac: Regular Rhythm and S1/S2; Negative Murmur, Rub or Gallop
GI: Soft, Nontender, Nondistended and Normal Bowel Sounds; Negative Organomegaly
Rectal: Deferred by Provider
Musculoskeletal: No Clubbing, No Cyanosis and No Edema
Skin: Negative Rash
Neuro: Awake, Alert, Oriented and Nonfocal/Grossly Intact
[2024-04-07 10:43] LABS: Percent Saturation 22 % (20-50); Total Iron Binding Capacity 212 ug/dl (265-497)
[2024-04-07] MEDS: TORADOL 15 MG IV ×2 (13:53→20:39)
[2024-04-07] MEDS: UNASYN IV ×2 (14:00→20:38)
--- NOTE | 2024-04-07 14:28 | CON.ID ---
Consultation
-
Date/Time Consultation Requested: 04/07/24 7:21
Date/Time Consultation Performed: 04/07/24 14:28
Requesting Provider: Dr Patino
Performing Provider: Dr Landa
Reason for Consultation: Neutropenia, Pharyngitis
Chief Complaint / Past History
Chief Complaint
pharyngitis
History of Present Illness
Ms Kaminski is a 33 year old female with history of CML on Dasatinib who presented here for sore throat on the L side, no fevers, chills or other complaints, then today progressed to myalgias, subjective fevers and fatigue and presented here.
She presented here febrile, wbc 0.5, hgb 8.6, plt now 33 from normal in 11/30, anc was 0.1 with lymphocytosis, cr 0.6, hgc negative, Covid, influenza, strep and monospot all of which were negative; throat swab with usual resp nati CT showed L>R
tonsillitis, pharyngitis, epiglottitis without abscess but possible developing phlegmon. Seen by ENT and laryngoscopy without epiglottitis or airway compromise; tonsillitis was seen without abscess. Started on steroids, vancomycin and unasyn.
Past History
Additional Past Medical History:
psychosis, tarditive dyskinesia 2/2 antipsychotic
Past Surgical History: None
Allergy History:
amantadine Allergy (Verified 04/06/24 20:26)
Unknown
fluphenazine [From Prolixin] Allergy (Verified 04/06/24 20:26)
Unknown
haloperidol [From Haldol] Allergy (Verified 04/06/24 20:26)
Unknown
Medications Reviewed: Yes
Social History
Tobacco: Non-Smoker
Alcohol: None
Drug: None
Family History
Family History: Not Pertinent
Review of Systems
Review of Systems
General: Fever; Negative Chills
All systems: All other systems were reviewed and were negative
Vital Signs
Temp Pulse Resp BP Pulse Ox
97.7 F 73 17 90/63 97
04/07/24 08:03 04/07/24 10:15 04/07/24 08:00 04/07/24 07:55 04/07/24 10:00
Physical Exam
Physical Exam
Constitutional: No Acute Distress
Pharynx: Other (could not visualize tonsils; did have point tenderness in the L neck - improved from this am by her report)
Cardiovascular: Regular Rate and S1/S2; Negative Murmur or Rub
Pulmonary: Clear and Symmetric; Negative Wheezes, Rales or Rhonchi
Gastrointestinal: Soft, Non Tender, Non Distended and Normal Bowel Sounds
Skin: Warm and Dry; Negative Rash or Jaundice
Lab / Diagnostic Study Results
04/07/24 04:25
04/07/24 04:25
Abs Immat Gran (auto) 0.0 10^3/uL (0-0.05) 04/07/24 04:25
Absolute Neuts (auto) 0.1 10^3/uL (1.4-6.5) L* 04/07/24 04:25
Absolute Lymphs (auto) 0.4 10^3/uL (1.2-3.4) L 04/07/24 04:25
Absolute Monos (auto) 0.0 10^3/uL (0.1-0.6) L 04/07/24 04:25
Absolute Basos (auto) 0.0 10^3/uL (0-0.2) 04/07/24 04:25
Immature Gran % 2.0 % (0-0.5) H 04/07/24 04:25
Neutrophils % 10.2 % (42.2-75.2) L 04/07/24 04:25
Lymphocytes % 87.8 % (20.5-51.1) H 04/07/24 04:25
Monocytes % 0.0 % (1.7-9.3) L 01/30/25 04:25
Eosinophils % 0.0 % (0-6) 04/07/24 04:25
Basophils % 0.0 % (0-2) 04/07/24 04:25
Microbiology Results
Micro:
04/06/24 20:32 Throat Culture - Preliminary
Tonsil Usual Respiratory Nati
04/06/24 20:32 Streptococcus Screen (RODRICK) - Preliminary
Throat/Pharynx Culture in Progress
Streptococcus Rapid Screen - Final
Rapid Strep Screen (Group A) Negative
04/07/24 00:13 Influenza Types A & B (THOMAS) - Final
Nasal Swab Negative for Influenza A & B, NAAT
Negative results must be combined with clinical observations
and patient history.
Nucleic Acid Amplification test (NAAT)performed on the
[employer] platform.
Assessment / Plan
Tonsillitis with phlegmon
CML
Neutropenia
- blood cultures x2
- Covid, influenza, strep and monospot all of which were negative; throat swab with usual resp nati
- dasantinib can be associated with neutropenia - currently on hold
- MRSA screen
- steroids per ENT, ordered decadron 6 mg IV q8 x2 further doses after discussion with Dr Dejesus
- continue vancomycin pending mrsa screen
- continue unasyn
- follow clinically
[2024-04-07 15:27] VITALS: BP 98/71
[2024-04-07] MEDS: DECADRON 6 MG IV ×2 (15:36→23:24)
[2024-04-07 16:00] VITALS: BP 100/68
--- NOTE | 2024-04-07 16:06 | PTOTSP ---
Speech Therapy Assessment
Oral/pharyngeal swallow deemed wfl with low risk for aspiration/obstruction given clinical assessment and report from ENT.
Recommend
1. Regular solids and thin liquids.
2. Meds with liquids.
No skilled ST indicated.
[2024-04-07] MEDS: VANCOCIN 275 MG IV (18:30)
[2024-04-07 20:46] VITALS: BP 100/59
[2024-04-07 23:31] VITALS: BP 96/59
[2024-04-08] VITALS (8 sets, daily range): BP systolic 96–127; BP diastolic 56–69
[2024-04-08] MEDS: UNASYN IV ×4 (02:31→21:39)
[2024-04-08] MEDS: VANCOCIN 275 MG IV (05:13)
[2024-04-08 06:07] LABS: Fibrinogen 544 MG/DL (199-459); PT 14.7 Sec (11.4-14.6)
[2024-04-08 06:11] LABS: D-Dimer < 0.27 ug/mlFEU (0.00-0.50)
[2024-04-08 06:22] LABS: Blood Urea Nitrogen 8 mg/dl (7-17); Calcium 8.1 mg/dl (8.4-10.2); Carbon Dioxide 25 mmol/L (22-30); Chloride 105 mmol/L (98-107); Estimated Creatinine Clearance > 125 ml/min; Glucose 174 mg/dl (70-99); LDH 138 U/L (120-246); Potassium 4.1 mmol/L (3.5-5.1); Sodium 141 mmol/L (135-145); eGFR > 60.00
[2024-04-08 07:11] LABS: Hematocrit 24.8 % (37.0-47.0); Hemoglobin 8.4 g/dL (12.0-16.0); Mean Corp Hgb Conc. 33.9 g/dL (33.0-37.0); Mean Corpuscular Hgb 30.2 pg (27.0-31.0); Mean Corpuscular Volume 89.2 fL (81.0-99.0); Red Blood Cell Count 2.78 10^6/uL (4.20-5.40); Red Cell Dist. Width 17.3 % (11.5-14.5); White Blood Cell Count 0.8 10^3/uL (4.8-10.8)
[2024-04-08 07:53] LABS: Folate 6.2 ng/ml (2.76-20); Vitamin B12 416 pg/ml (239-931)
--- NOTE | 2024-04-08 08:14 | W.PN.ONC2 ---
Documented by User: SATHYA Barajas 04/08/24 12:12
Today's Communication / Plan
-
-
Impression
Impression
CML
pancytopenia. No evidence of acute DIC with elevated fibrinogen. Iron studies c/w AOCD/inflammation. No B12 or folate deficiency. Hemolysis unlikely with normal LDH
hemolysis less likely with normal LFTs
neutropenic fever
L > R tonsillitis w/o abscess s/p laryngoscopy 04/07
Plan
Plan
ENT and ID following
pain management
on IV abx and IV dexamethasone
hold dasatinib
neutropenic precautions
Daily CBC with diff
Transfuse Hgb <7 or as needed for sxs anemia
Transfuse platelets <20 with NF or as needed for bleeding
avoid nsaids, antiplatelet, and anticoagulation with platelet count <50,000
OP follow up with Dr. Guajardo to determine if/when dasatinib can be resumed
Subjective/Objective
Subjective
no new complaints
Vital Signs:
Vital Signs
Temp Pulse Resp BP Pulse Ox
98.2 F 75 18 96/59 97
04/07/24 23:31 04/07/24 23:31 04/07/24 23:31 04/07/24 23:31 04/07/24 23:31
Lab Results:
Laboratory Data
WBC 0.8 10^3/uL (4.8-10.8) L* 04/08/24 06:19
Hgb 8.4 g/dL (12.0-16.0) L 04/08/24 06:19
Plt Count Cancelled 04/08/24 05:31
PT 14.7 Sec (11.4-14.6) H 04/08/24 05:32
INR 1.10 04/08/24 05:32
APTT 20.0 Sec (23.4-35.0) L 04/08/24 05:32
eGFR > 60.00 04/08/24 05:41
Physical Exam
HEENT: Erythema of the posterior oropharynx. cervical adenopathy
Respiratory: Clear; No Wheezes, Rales or Rhonchi
Cardiac: S1/S2 and Regular Rhythm; No Murmur
GI: Soft, Non Tender, Non Distended
Musculoskeletal: No Clubbing, No Cyanosis and No Edema
Neuro: AO x 3
Orders
Orders
Orders From Last 24 Hours
04/07/24 09:26
Add On- LAB Routine
Precautions As Directed
04/08/24 05:32
D-Dimer IN AM
Fibrinogen IN AM
PT/INR [Prothrombin Time] IN AM
PTT IN AM
04/08/24 05:41
B12 [Vitamin B12] IN AM
Folate IN AM
Immunoglobulin Panel IN AM
LDH IN AM

Documented by User: Harjinder Irby MD 04/08/24 13:09
Plan
Plan
ENT and ID following
pain management
on IV abx and IV dexamethasone
hold dasatinib
neutropenic precautions
Daily CBC with diff
Transfuse Hgb <7 or as needed for sxs anemia
Transfuse platelets <20 with NF or as needed for bleeding
avoid nsaids, antiplatelet, and anticoagulation with platelet count <50,000
OP follow up with Dr. Guajardo to determine if/when dasatinib can be resumed
Hematology/ Oncology Addendum:
Patient seen and evaluated and agree w/ [employer]MENT TECHNICIAN note and plan as outlined
-CML - now w/ pancytopenia on dasatinib
-hold dasatinib
-antibiotics / cultures - ID following
-follow CBC
-f/u w/ Dr. Lechuga
--- NOTE | 2024-04-08 08:57 | PHA.VAN.FU ---
Vancomycin Assessment / Plan
- Assessment
Renal Function: SCR Decreasing (0.5)
WBC's are: Trending Up (0.8)
In the past 24 hrs, patient has been: Afebrile
Concomitant Antimicrobials: ampicillin/sulbactam
- Dosing Plan
Continue: vancomycin 1250 mg q12h
- Monitoring Plan
Peak Level: 1.31 @2100
Trough Level: 2.1 @0530
- Follow Up
Pharmacy will continue to follow.
Vancomycin Follow UP
- -
Patient Age: 33
Patient Sex: Female
Vancomycin Day #: 2
Indication: Neutropenic Fever
Requesting Provider: Omar Patino
Pertinent Antimicrobial Allergies:
none
Height / Weight:
Height 5 ft 8 in
Actual Weight 72.8 kg
IBW in k.9
Adjusted BW in k.5
Pertinent Past Medical History: CML, neutropenia
- Vital Signs / Lab Results
Temp Pulse Resp BP Pulse Ox
98 F 70 16 96/66 97
04/08/24 08:47 04/08/24 08:47 04/08/24 08:47 04/08/24 08:47 04/08/24 08:47
Lab Results - Hematology
04/07/24 04/08/24 04/08/24
04:25 05:31 06:19
WBC 0.5 L* Cancelled 0.8 L*
Lab Results - Chemistry
04/07/24 04/08/24
04:25 05:41
BUN 8 8
Creatinine 0.6 0.5 L
Estimated Creat Clear > 125 > 125
Microbiology Results
04/08/24 05:31 Nasal Screen MRSA (PCR) - Final
Nose MRSA not detected - performed by PCR methodology.
04/06/24 20:32 Throat Culture - Preliminary
Tonsil Usual Respiratory Senia
04/06/24 20:32 Streptococcus Screen (RODRICK) - Preliminary
Throat/Pharynx Culture in Progress
Streptococcus Rapid Screen - Final
Rapid Strep Screen (Group A) Negative
04/07/24 00:13 Influenza Types A & B (THOMAS) - Final
Nasal Swab Negative for Influenza A & B, NAAT
Negative results must be combined with clinical observations
and patient history.
Nucleic Acid Amplification test (NAAT)performed on the
[employer] platform.
[2024-04-08] MEDS: TORADOL 15 MG IV (09:01)
[2024-04-08 09:43] LABS: Band Neutrophils 2 % (0-3); Platelet Count 35 10^3/uL (130-400); Segmented Neutrophils 4 % (42-75)
[2024-04-08 09:44] LABS: Lymphocytes 94 % (20-51)
[2024-04-08 09:46] LABS: Anisocytosis 1+; Normal RBC Morphology No; Ovalocytes FEW; Platelets Checked Yes; Polychromasia 1+; Total Cells Counted 100
--- NOTE | 2024-04-08 10:11 | W.PN.ENT ---
Today's Communication
-
prednisone taper on d/c. Airway appears ok, widely patent. No plans for surgical intervention.
Impression / Plan
-
The patient is a 33yoF with CML and pharyngitis with airway edema but no airway compromise, no trismus or findings suggestive of abscess. I recommend continue present management with IV abx and steroids. Airway is widely patent. Will s/o for now.
Please have the patient f/u with ENT about 1 week after d/c. Would recommend prednisone taper for 1 week starting at 30mg PO Daily.
Subjective Data
-
The patient was seen and examined. She is a 33yoF with CML and new onset sore throat L>R. States that her pain has improved since admission, seem to go between an 8 and 5 on pain scale. Denies trouble breathing or swallowing. No trouble opening her
mouth. She is getting IV abv and steroids.
Objective Data
-
Vital Signs
Temp Pulse Resp BP Pulse Ox
98 F 70 16 96/66 97
04/08/24 08:47 04/08/24 08:47 04/08/24 08:47 04/08/24 08:47 04/08/24 08:47
Intake & Output
04/07/24 04/08/24 04/09/24
06:59 06:59 06:59
Intake:
Oral fluids 480 / 480
IV fluids (Total) 1200 / 1200
IV piggybacks 515 / 515 120 / 120
Other:
Number of approximated LARGE 2
amounts of urine
Lab Results
04/08/24 06:19
04/08/24 05:41
PT 14.7 Sec (11.4-14.6) H 04/08/24 05:32
INR 1.10 04/08/24 05:32
APTT 20.0 Sec (23.4-35.0) L 04/08/24 05:32
Calcium 8.1 mg/dl (8.4-10.2) L 04/08/24 05:41
Physical Exam
-
NAD: Alert and oriented
HEENT: Clear speech, no 'hot potato' voice, OC/OP: No soft palate effacement, uvula is midline. +Erythema, no exudates
Neck: Bilateral soft palpable nodes
Data Reviewed
-
Radiology Results: Report Reviewed
--- NOTE | 2024-04-08 11:02 | W.PN.HOSP.TC ---
Today's Communication/Plan
-
IV antibiotics
Steroid taper.
Follow CBC
Assessment / Plan
Assessment / Plan
Impression:
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
Acute pharyngitis/tonsillitis.
CML.
Immunosuppressed status.
Leukopenia.
Chronic anemia.
Thrombocytopenia
Bipolar disorder with history of psychosis
Plan:
Pharyngitis, tonsillitis
COVID-negative, flu negative [place] negative.
MRSA screen negative
Blood cultures pending
CT neck findings consistent with bilateral tonsillitis, left-sided pharyngitis. Concerning for phlegmon and epiglottitis
ENT input appreciated.
Laryngoscopy performed with no evidence of epiglottitis or airway compromise. There is a significant tonsillitis, left worse than right with no evidence of abscess.
Initiated on IV antibiotics vancomycin/Unasyn pending cultures
Repeat ENT exam on 04/08 with no abscess.
Pain improved and controlled with anti-inflammatory.
Diet has been advanced to solids.
Plan is for antibiotics.
ENT recommends to transition to oral prednisone at 30 mg and taper by 10 mg on every third day
CML.
Noted for pancytopenia
Neutropenia WBC 0.5
Hold Dasatinib
Oncology consultation
Follow CBC
Bipolar currently not on any antipsychotic medications.
- Stable. Isolated prior instance of psychosis.
- Not on any chronic mood stabilizing meds, etc.
- Prior adverse reaction / tardive dyskinesia with antipsychotics.
- Follow for any changes in mood.
DVT Prophylaxis: SCDs
Code Status: Full
Anticipated Discharge: 24 - 48 hours
Subjective/Interval History
-
Date of Service: April 08, 2024
Objective Data
-
Labs:
Laboratory Results
04/08/24 04/08/24 04/08/24
05:31 05:32 05:41
WBC Cancelled
Hgb Cancelled
Hct Cancelled
Plt Count Cancelled
PT 14.7 H
INR 1.10
APTT 20.0 L
Sodium 141
Potassium 4.1
Chloride 105
Carbon Dioxide 25
BUN 8
Creatinine 0.5 L
Glucose 174 H
Calcium 8.1 L
04/08/24
06:19
WBC 0.8 L*
Hgb 8.4 L
Hct 24.8 L
Plt Count 35 L
PT
INR
APTT
Sodium
Potassium
Chloride
Carbon Dioxide
BUN
Creatinine
Glucose
Calcium
Vital Signs:
Vital Signs
Temp Pulse Resp BP Pulse Ox
98 F 70 16 96/66 97
04/08/24 08:47 04/08/24 08:47 04/08/24 08:47 04/08/24 08:47 04/08/24 08:47
I&O
04/07/24 04/08/24 04/09/24
06:59 06:59 06:59
Intake Total 2194 120 / 120
Balance 2194 / 2194 120 / 120
[2024-04-08] MEDS: DELTASONE 30 MG PO (11:39)
[2024-04-08] MEDS: LR IV (11:53)
--- NOTE | 2024-04-08 15:09 | W.PN.ID1 ---
Date of Service
Date of Service: April 08, 2024
Today's Communication
- not colonized wtih mrsa, stopped vancomycin
- continue unasyn
Assessment / Plan
Tonsillitis with phlegmon
CML
Neutropenia
- blood cultures x2 in progress no growth to date
- Covid, influenza, strep and monospot all of which were negative; throat swab with usual resp nati
- dasantinib can be associated with neutropenia - currently on hold
- MRSA screen
- steroids per ENT
- not colonized wtih mrsa, stopped vancomycin
- continue unasyn
- follow clinically
Chief Complaint
-: Other (oropharygneal infection )
Subjective / Review of Systems
afebrile
bp mildly hypotensive
anc improved
tolerating current therapies
sore throat improving
Vital Signs / Physical Exam
Vital Signs
Vital Signs
Temp Pulse Resp BP Pulse Ox
98 F 70 16 96/66 97
04/08/24 08:47 04/08/24 08:47 04/08/24 08:47 04/08/24 08:47 04/08/24 08:47
Physical Exam
Constitutional: No Acute Distress and Chronically Ill
Cardiovascular: Regular Rate and S1/S2; Negative Murmur or Rub
Pulmonary: Clear and Symmetric; Negative Wheezes or Rales
Gastrointestinal: Soft, Non Tender, Non Distended and Normal Bowel Sounds
Skin: Warm and Dry; Negative Rash or Jaundice
Objective Data
Lab Data
Lab Results
04/08/24 06:19
04/08/24 05:41
PT 14.7 Sec (11.4-14.6) H 04/08/24 05:32
INR 1.10 04/08/24 05:32
APTT 20.0 Sec (23.4-35.0) L 04/08/24 05:32
Estimated Creat Clear > 125 ml/min 04/08/24 05:41
Most recent labs reviewed.
Micro Results:
04/06/24 20:32 Throat Culture - Final
Tonsil Usual Respiratory Nati
04/06/24 20:32 Streptococcus Screen (RODRICK) - Final
Throat/Pharynx No Beta Hemolytic Streptococci Isolated
Streptococcus Rapid Screen - Final
Rapid Strep Screen (Group A) Negative
04/08/24 05:31 Nasal Screen MRSA (PCR) - Final
Nose MRSA not detected - performed by PCR methodology.
04/08/24 06:19 Blood Culture - Pending
Blood/Venous
04/08/24 05:41 Blood Culture - Pending
Blood/Venous
04/07/24 00:13 Influenza Types A & B (THOMAS) - Final
Nasal Swab Negative for Influenza A & B, NAAT
Negative results must be combined with clinical observations
and patient history.
Nucleic Acid Amplification test (NAAT)performed on the
[employer] platform.
Care Review
Plan reviewed with: Physician (Dr brenner - symptoms)
[2024-04-08 21:45] LABS: Vancomycin Peak < 5.0 ug/ml (18-26)
[2024-04-09 01:20] VITALS: BP 99/59; BMI 25.0
--- NOTE | 2024-04-09 01:29 | PTCARENOTE ---
Received pt from ED via stretcher. Pt able to ambulate safely into room. Pt oriented to unit and call nickerson within reach. VSS. orders reviewed, plan of care ongoing.
[2024-04-09] MEDS: UNASYN IV ×4 (02:36→20:58)
[2024-04-09 06:59] LABS: Vancomycin Trough < 5.0 ug/ml (5-20)
[2024-04-09 07:00] VITALS: BP 81/39
[2024-04-09] MEDS: DELTASONE 30 MG PO (08:43)
[2024-04-09] MEDS: TYLENOL 650 MG PO (08:46)
[2024-04-09] MEDS: TORADOL 15 MG IV ×2 (09:36→17:26)
--- NOTE | 2024-04-09 11:08 | W.PN.HOSP.TC ---
Today's Communication/Plan
-
cepacol and Toradol for symptom management
continue diet
continue Unasyn - transition to PO when cleared by ID. Duration TBD
continue oral steroids
ENT f/u in 1 week
perhaps DC in 24 hours if cleared by ID
Assessment / Plan
Assessment / Plan
Impression:
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
Acute pharyngitis/tonsillitis.
CML.
Immunosuppressed status.
Leukopenia.
Chronic anemia.
Thrombocytopenia
Bipolar disorder with history of psychosis
Plan:
Pharyngitis, tonsillitis
COVID-negative, flu negative. [place] negative.
MRSA screen negative
Blood cultures NGTD
CT neck findings consistent with bilateral tonsillitis, left-sided pharyngitis. Concerning for phlegmon and epiglottitis
ENT input appreciated.
Laryngoscopy performed with no evidence of epiglottitis or airway compromise. There is a significant tonsillitis, left worse than right with no evidence of abscess.
Initiated on IV antibiotics (Unasyn)
Repeat ENT exam on 04/08 with no abscess.
Pain improved and controlled with anti-inflammatory.
Diet has been advanced to solids.
ENT recommends to transition to oral prednisone at 30 mg and taper by 10 mg on every third day
CML.
Noted for pancytopenia
Neutropenia WBC 0.8
Hold Dasatinib
Oncology consultation
Follow CBC
Bipolar currently not on any antipsychotic medications.
- Stable. Isolated prior instance of psychosis.
- Not on any chronic mood stabilizing meds, etc.
- Prior adverse reaction / tardive dyskinesia with antipsychotics.
- Follow for any changes in mood.
DVT Prophylaxis: SCDs
Code Status: Full
Anticipated Discharge: Within 24 hours
Subjective/Interval History
-
Date of Service: April 09, 2024
reports some improvement in throat pain, able to tolerate food
mild low grade temps
Objective Data
-
Vital Signs:
Vital Signs
Temp Pulse Resp BP Pulse Ox
98.8 F 60 16 81/39 97
04/09/24 07:00 04/09/24 07:00 04/09/24 07:00 04/09/24 07:00 04/09/24 07:00
I&O
04/08/24 04/09/24 04/10/24
06:59 06:59 06:59
Intake Total 2195 / 2195 720 / 720 120 / 120
Balance 2195 / 2195 720 / 720 120 / 120
Physical Exam
-
General: No Apparent Distress
HEENT: Normocephalic and Atraumatic
Respiratory: Negative Wheezes
Cardiac: Regular Rhythm and S1/S2
GI: Soft and Nontender
Neuro: AO x 3
Hematologic / Lymphatic: No Lymphadenopathy
Psych: Calm
Data Reviewed
-
Total Time Spent with Patient (in minutes): 41
Labs: Labs Reviewed by me
[2024-04-09 11:13] VITALS: BP 107/62
[2024-04-09 15:00] VITALS: BP 121/80
[2024-04-09 15:17] LABS: Hematocrit 23.1 % (37.0-47.0); Hemoglobin 7.8 g/dL (12.0-16.0); Mean Corp Hgb Conc. 33.8 g/dL (33.0-37.0); Mean Corpuscular Hgb 30.5 pg (27.0-31.0); Mean Corpuscular Volume 90.2 fL (81.0-99.0); Platelet Count 34 10^3/uL (130-400); Red Blood Cell Count 2.56 10^6/uL (4.20-5.40); Red Cell Dist. Width 17.2 % (11.5-14.5); White Blood Cell Count 0.9 10^3/uL (4.8-10.8)
[2024-04-09 15:40] LABS: % Lymphocytes 93.1 % (20.5-51.1); % Neutrophils 6.9 % (42.2-75.2); Absolute Lymphocytes 0.8 10^3/uL (1.2-3.4); Absolute Neutrophils 0.1 10^3/uL (1.4-6.5); Nucleated Red Blood Cells % 0 %
--- NOTE | 2024-04-09 17:07 | W.PN.UPDATE ---
Update Note
Progress Note Update
ANC remains 0.1
recheck in the AM
continue IV antibiotics at this time
[2024-04-09] MEDS: ANESTHETIC LOZENGE 1 LOZENGE PO (17:26)
[2024-04-09 23:00] VITALS: BP 105/62
[2024-04-10] MEDS: UNASYN IV ×4 (01:45→20:06)
[2024-04-10] MEDS: TORADOL 15 MG IV ×3 (01:52→18:28)
[2024-04-10 06:51] LABS: Hematocrit 22.1 % (37.0-47.0); Hemoglobin 7.1 g/dL (12.0-16.0); Mean Corp Hgb Conc. 32.1 g/dL (33.0-37.0); Mean Corpuscular Hgb 29.5 pg (27.0-31.0); Mean Corpuscular Volume 91.7 fL (81.0-99.0); Red Blood Cell Count 2.41 10^6/uL (4.20-5.40); Red Cell Dist. Width 16.8 % (11.5-14.5)
[2024-04-10 06:52] LABS: Blood Urea Nitrogen 20 mg/dl (7-17); Carbon Dioxide 26 mmol/L (22-30); Chloride 106 mmol/L (98-107); Estimated Creatinine Clearance > 125 ml/min; Glucose 105 mg/dl (70-99); Potassium 3.9 mmol/L (3.5-5.1); Sodium 135 mmol/L (135-145); eGFR > 60.00
[2024-04-10 07:00] VITALS: BP 102/73
[2024-04-10] MEDS: DELTASONE 20 MG PO (08:10)
[2024-04-10 08:32] LABS: % Lymphocytes 97.7 % (20.5-51.1); % Monocytes 0.5 % (1.7-9.3); % Neutrophils 1.8 % (42.2-75.2); Absolute Lymphocytes 2.1 10^3/uL (1.2-3.4); Mean Platelet Volume 9.9 fL (7.4-10.4); Nucleated Red Blood Cells % 0 %; Platelet Count 28 10^3/uL (130-400); White Blood Cell Count 2.2 10^3/uL (4.8-10.8)
--- NOTE | 2024-04-10 11:54 | W.PN.ONC2 ---
Today's Communication / Plan
-
persistent severe pancytopenia.
hemodynamically stable with slow improvement from infection standpoint.
no indication for transfusions at this time.
neutropenic precautions.
Impression
Impression
CML
pancytopenia. No evidence of acute DIC with elevated fibrinogen. Iron studies c/w AOCD/inflammation. No B12 or folate deficiency. Hemolysis unlikely with normal LDH
hemolysis less likely with normal LFTs
neutropenic fever
L > R tonsillitis w/o abscess s/p laryngoscopy 04/07
Plan
Plan
Rise in WBC today however ANC 0, mild drop in hgb in 7.1 g/dl, plts 28K. no bleeding or bruising symptoms.
hold off on transfusion today as ideally would limit allogenic product exposure in case SCT is required for her CML management in future.
ENT and ID following
pain management
on IV abx and prednisone.
continue to hold dasatinib
neutropenic precautions
Daily CBC with diff
Transfuse Hgb <7 or as needed for sxs anemia. If transfusion indicated give leukoreduced, irradiated products.
Transfuse platelets <20 with NF or as needed for bleeding
avoid nsaids, antiplatelet, and anticoagulation with platelet count <50,000
OP follow up with Dr. Guajardo to determine if/when dasatinib can be resumed. It counts do not improve with improvement in infection discussed role for repeat bone marrow to rule out CML progression with worsening myelofibrosis vs. AML.
Subjective/Objective
Chief Complaint
pancytopenia, CML, tonsilitis
Subjective
pt still with pain with swallowing, neck tenderness that she feels in unchanged. Has been afebrile since 04/06, hemodynamically stable. Denies bruising, bleedin symptoms.
Vital Signs:
Vital Signs
Temp Pulse Resp BP Pulse Ox
97.8 F 60 16 102/73 99
04/10/24 07:00 04/10/24 07:00 04/10/24 07:00 04/10/24 07:00 04/10/24 07:00
Lab Results:
Laboratory Data
WBC 2.2 10^3/uL (4.8-10.8) L* 04/10/24 06:22
Hgb 7.1 g/dL (12.0-16.0) L 04/10/24 06:22
Plt Count 28 10^3/uL (130-400) L* 04/10/24 06:22
PT 14.7 Sec (11.4-14.6) H 04/08/24 05:32
INR 1.10 04/08/24 05:32
APTT 20.0 Sec (23.4-35.0) L 04/08/24 05:32
eGFR > 60.00 04/10/24 06:22
Physical Exam
HEENT: Moist Mucous Membranes and Other (mild erythema in posterior pharynx without obvious exudates ); No Jaundice
Cardiology: Normal Sinus Rhythm
Pulmonary: Clear
Extremities: No Edema
Neuro: Non Focal
Review of Systems
Review of Systems
Constitutional: Denies Fever
Head: Reports Sore Throat
Respiratory: Denies Dyspnea or Cough
Cardiovascular: Denies Chest Pain
Hem/Lymphatic: Reports Swollen Glands; Denies Easy Bruising or Night Sweats
--- NOTE | 2024-04-10 13:24 | W.PN.HOSP.TC ---
Today's Communication/Plan
-
follow daily CBC with diff
continue pain control
continue IV Abx
oral steroids
follow ID/Onc recs
Assessment / Plan
Assessment / Plan
Impression:
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
Acute pharyngitis/tonsillitis.
CML.
Immunosuppressed status.
Leukopenia.
Chronic anemia.
Thrombocytopenia
Bipolar disorder with history of psychosis
Plan:
Pharyngitis, tonsillitis
COVID-negative, flu negative. [place] negative.
MRSA screen negative
Blood cultures NGTD
CT neck findings consistent with bilateral tonsillitis, left-sided pharyngitis. Concerning for phlegmon and epiglottitis
ENT input appreciated.
Laryngoscopy performed with no evidence of epiglottitis or airway compromise. There is a significant tonsillitis, left worse than right with no evidence of abscess.
Initiated on IV antibiotics (Unasyn)
Repeat ENT exam on 04/08 with no abscess.
Pain improved and controlled with anti-inflammatory.
Diet has been advanced to solids.
ENT recommends to transition to oral prednisone at 30 mg and taper by 10 mg on every third day
CML.
Noted for pancytopenia
Neutropenia WBC 2.2 ANC 0
Hold Dasatinib
Oncology following
Follow CBC; check type/screen. Hb 7.1 - no indication for transfusion today per Oncologist.
Bipolar currently not on any antipsychotic medications.
- Stable. Isolated prior instance of psychosis.
- Not on any chronic mood stabilizing meds, etc.
- Prior adverse reaction / tardive dyskinesia with antipsychotics.
- Follow for any changes in mood.
DVT Prophylaxis: SCDs
Code Status: Full
Anticipated Discharge: > 48 hours
Subjective/Interval History
-
Date of Service: April 10, 2024
reports pain is stable, no worsening. Toradol helps
tolerating IV abx
Objective Data
-
Labs:
Laboratory Results
04/10/24
06:22
WBC 2.2 L*
Hgb 7.1 L
Hct 22.1 L
Plt Count 28 L*
Sodium 135
Potassium 3.9
Chloride 106
Carbon Dioxide 26
BUN 20 H
Creatinine 0.5 L
Glucose 105 H
Calcium 8.0 L
Vital Signs:
Vital Signs
Temp Pulse Resp BP Pulse Ox
97.8 F 60 16 102/73 99
04/10/24 07:00 04/10/24 07:00 04/10/24 07:00 04/10/24 07:00 04/10/24 07:00
I&O
04/09/24 04/10/24 04/11/24
06:59 06:59 06:59
Intake Total 720 / 720 1080 / 1080
Balance 720 / 720 1080 / 1080
Physical Exam
-
General: No Apparent Distress
HEENT: Normocephalic and Atraumatic
Respiratory: Negative Wheezes
Cardiac: Regular Rhythm and S1/S2
GI: Soft and Nontender
Genito-urinary: No Costovertebral Tender
Musculoskeletal: No Edema
Neuro: AO x 3
Hematologic / Lymphatic: No Lymphadenopathy
Psych: Calm
Data Reviewed
-
Total Time Spent with Patient (in minutes): 41
Labs: Labs Reviewed by me
--- NOTE | 2024-04-10 13:42 | CM ---
CM following re: d/c planning.
ID on board, IV abx.
CM spoke with pt to complete IA.
She reports she resides in the home with her mother.
She is independent with mobility and ADLs.
She denies DME.
She does not expect any d/c needs.
CM will continue to follow.
PCP Diane Murillo and [facility].
[2024-04-10 15:00] VITALS: BP 97/69
[2024-04-10 22:22] VITALS: BP 101/67
[2024-04-11] MEDS: UNASYN IV ×4 (02:59→22:26)
[2024-04-11] MEDS: TORADOL 15 MG IV ×3 (03:05→17:15)
[2024-04-11 07:09] LABS: Hematocrit 21.6 % (37.0-47.0); Hemoglobin 7.1 g/dL (12.0-16.0); Mean Corp Hgb Conc. 32.9 g/dL (33.0-37.0); Mean Corpuscular Hgb 29.7 pg (27.0-31.0); Mean Corpuscular Volume 90.4 fL (81.0-99.0); Platelet Count 27 10^3/uL (130-400); Red Blood Cell Count 2.39 10^6/uL (4.20-5.40); Red Cell Dist. Width 16.7 % (11.5-14.5); White Blood Cell Count 2.5 10^3/uL (4.8-10.8)
[2024-04-11 07:20] VITALS: BP 99/74
[2024-04-11 07:24] LABS: Blood Urea Nitrogen 18 mg/dl (7-17); Calcium 8.1 mg/dl (8.4-10.2); Carbon Dioxide 28 mmol/L (22-30); Chloride 105 mmol/L (98-107); Estimated Creatinine Clearance > 125 ml/min; Glucose 106 mg/dl (70-99); Potassium 3.9 mmol/L (3.5-5.1); Sodium 139 mmol/L (135-145); eGFR > 60.00
[2024-04-11] MEDS: DELTASONE 20 MG PO (09:11)
--- NOTE | 2024-04-11 11:05 | CM ---
Patient seen at bedside. Patient continues to anticipate no needs at discharge. CM will continue to follow for discharge planning needs.
Plan; home with no needs.
--- NOTE | 2024-04-11 11:27 | W.PN.ONC2 ---
Today's Communication / Plan
-
- mild rise in WBC with other cell lines stable.
- ongoing management of infection with ENT.
Impression
Impression
CML
pancytopenia. No evidence of acute DIC with elevated fibrinogen. Iron studies c/w AOCD/inflammation. No B12 or folate deficiency. Hemolysis unlikely with normal LDH
hemolysis less likely with normal LFTs
neutropenic fever
L > R tonsillitis w/o abscess s/p laryngoscopy 04/07
Plan
Plan
Further rise in WBC today however no differential reported, will add on. hgb stable at 7.1 g/dl, plts 27K. no bleeding or bruising symptoms.
hold off on transfusion again today as ideally would limit allogenic product exposure in case SCT is required for her CML management in future.
ENT and ID following
pain management
on IV abx and prednisone.
continue to hold dasatinib
neutropenic precautions
Daily CBC with diff
Transfuse Hgb <7 or as needed for sxs anemia. If transfusion indicated give leukoreduced, irradiated products.
Transfuse platelets <20K with NF or as needed for bleeding
avoid nsaids, antiplatelet, and anticoagulation with platelet count <50,000
OP follow up with Dr. Guajardo to determine if/when dasatinib can be resumed. It counts do not improve with improvement in infection discussed role for repeat bone marrow to rule out CML progression with worsening myelofibrosis vs. AML.
Subjective/Objective
Chief Complaint
pancytopenia, CML, tonsillitis
Subjective
pt notes voice more hoarse today however pain is better. denies fevers, cough, SOB, bleeding or bruising
Vital Signs:
Vital Signs
Temp Pulse Resp BP Pulse Ox
98.3 F 60 17 99/74 100
04/11/24 07:20 04/11/24 07:20 04/11/24 07:20 04/11/24 07:20 04/11/24 07:20
Lab Results:
Laboratory Data
WBC 2.5 10^3/uL (4.8-10.8) L 04/11/24 06:38
Hgb 7.1 g/dL (12.0-16.0) L 04/11/24 06:38
Plt Count 27 10^3/uL (130-400) L* 04/11/24 06:38
PT 14.7 Sec (11.4-14.6) H 04/08/24 05:32
INR 1.10 04/08/24 05:32
APTT 20.0 Sec (23.4-35.0) L 04/08/24 05:32
eGFR > 60.00 04/11/24 06:38
Physical Exam
HEENT: No Jaundice
Cardiology: Normal Sinus Rhythm
Pulmonary: Clear
Extremities: No Edema
Neuro: Non Focal
Review of Systems
Review of Systems
Constitutional: Denies Fever
Head: Reports Sore Throat
Respiratory: Denies Dyspnea or Cough
Cardiovascular: Denies Chest Pain
Gastrointestinal: Denies Nausea/Vomiting or Diarrhea
Hem/Lymphatic: Reports Swollen Glands; Denies Easy Bruising
[2024-04-11 11:56] LABS: % Lymphocytes 97.6 % (20.5-51.1); % Monocytes 0.4 % (1.7-9.3); Absolute Lymphocytes 2.5 10^3/uL (1.2-3.4); Absolute Neutrophils 0.1 10^3/uL (1.4-6.5); Nucleated Red Blood Cells % 0 %
[2024-04-11 15:15] VITALS: BP 135/65
--- NOTE | 2024-04-11 15:55 | W.PN.HOSP.TC ---
Today's Communication/Plan
-
Neutropenia improved WBC of 2.5
Continue IV antibiotics for another 24 hours
Diet has been advanced
Continue prednisone taper
Assessment / Plan
Assessment / Plan
Impression:
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
Acute pharyngitis/tonsillitis.
CML.
Immunosuppressed status.
Leukopenia.
Chronic anemia.
Thrombocytopenia
Bipolar disorder with history of psychosis
Plan:
Pharyngitis, tonsillitis
COVID-negative, flu negative. [place] negative.
MRSA screen negative
Blood cultures NGTD
CT neck findings consistent with bilateral tonsillitis, left-sided pharyngitis. Concerning for phlegmon and epiglottitis
ENT input appreciated.
Laryngoscopy performed with no evidence of epiglottitis or airway compromise. There is a significant tonsillitis, left worse than right with no evidence of abscess.
Initiated on IV antibiotics (Unasyn)
Repeat ENT exam on 04/08 with no abscess.
Pain improved and controlled with anti-inflammatory.
Diet has been advanced to solids.
ENT recommends to transition to oral prednisone at 30 mg and taper by 10 mg on every third day
CML.
Noted for pancytopenia
Neutropenia WBC 2.2 ANC 0
Hold Dasatinib
Oncology following
Follow CBC; check type/screen. Hb 7.1 - no indication for transfusion today per Oncologist.
Bipolar currently not on any antipsychotic medications.
- Stable. Isolated prior instance of psychosis.
- Not on any chronic mood stabilizing meds, etc.
- Prior adverse reaction / tardive dyskinesia with antipsychotics.
- Follow for any changes in mood.
DVT Prophylaxis: SCDs
Code Status: Full
Anticipated Discharge: 24 - 48 hours
Subjective/Interval History
-
Date of Service: April 11, 2024
Objective Data
-
Labs:
Laboratory Results
04/11/24
06:38
WBC 2.5 L
Hgb 7.1 L
Hct 21.6 L
Plt Count 27 L*
Sodium 139
Potassium 3.9
Chloride 105
Carbon Dioxide 28
BUN 18 H
Creatinine 0.5 L
Glucose 106 H
Calcium 8.1 L
Vital Signs:
Vital Signs
Temp Pulse Resp BP Pulse Ox
98.3 F 60 17 99/74 100
04/11/24 07:20 04/11/24 07:20 04/11/24 07:20 04/11/24 07:20 04/11/24 07:20
I&O
04/10/24 04/11/24 04/12/24
06:59 06:59 06:59
Intake Total 1080 / 1080 1440 / 1440
Balance 1080 / 1080 1440 / 1440
Physical Exam
-
General: No Apparent Distress
HEENT: Normocephalic and Atraumatic
Respiratory: Negative Wheezes
Cardiac: Regular Rhythm and S1/S2
GI: Soft and Nontender
Genito-urinary: No Costovertebral Tender
Musculoskeletal: No Edema
Neuro: AO x 3
Hematologic / Lymphatic: No Lymphadenopathy
Psych: Calm
--- NOTE | 2024-04-11 16:33 | PTCARENOTE ---
patient c/o sore throat. reports voice more hoarse today, administered PRN Toradol this am and patient has been sleeping t/o the day, tolerating diet, independent to br, vss, will continue to monitor.
[2024-04-11 18:43] LABS: IgA 78 mg/dl (70-400); IgG 949 mg/dl (700-1600); IgM 116 mg/dl (40-230)
--- NOTE | 2024-04-11 19:11 | W.PN.ID1 ---
Date of Service
Date of Service: April 11, 2024
Today's Communication
- continue unasyn - may switch to augmentin tomorrow - 14 day course
Assessment / Plan
Tonsillitis with phlegmon
CML
Neutropenia
- ANC has not substantially improved yet
- blood cultures x2 in progress no growth to date
- Covid, influenza, strep and monospot all of which were negative; throat swab with usual resp nati
- dasantinib can be associated with neutropenia - currently on hold
- continue unasyn - may switch to augmentin tomorrow - 14 day course
- reviewed red flags with patient
- follow clinically
Chief Complaint
-: Other (oropharygneal infection )
Subjective / Review of Systems
afebrile
bp stable
less sore throat
able to swallow
Vital Signs / Physical Exam
Vital Signs
Vital Signs
Temp Pulse Resp BP Pulse Ox
98 F 88 16 135/65 98
04/11/24 15:15 04/11/24 15:15 04/11/24 15:15 04/11/24 15:15 04/11/24 15:15
Physical Exam
Constitutional: No Acute Distress and Chronically Ill
Cardiovascular: Regular Rate and S1/S2; Negative Murmur or Rub
Pulmonary: Clear and Symmetric; Negative Wheezes or Rales
Gastrointestinal: Soft, Non Tender, Non Distended and Normal Bowel Sounds
Skin: Warm and Dry; Negative Rash or Jaundice
Objective Data
Lab Data
Lab Results
04/11/24 06:38
04/11/24 06:38
PT 14.7 Sec (11.4-14.6) H 04/08/24 05:32
INR 1.10 04/08/24 05:32
APTT 20.0 Sec (23.4-35.0) L 04/08/24 05:32
Estimated Creat Clear > 125 ml/min 04/11/24 06:38
Most recent labs reviewed.
Micro Results:
04/08/24 06:19 Blood Culture - Preliminary
Blood/Venous No Growth in 72 hours- Final report to follow
04/08/24 05:41 Blood Culture - Preliminary
Blood/Venous No Growth in 72 hours- Final report to follow
04/06/24 20:32 Throat Culture - Final
Tonsil Usual Respiratory [place]ati
04/06/24 20:32 Streptococcus Screen (RODRICK) - Final
Throat/Pharynx No Beta Hemolytic Streptococci Isolated
Streptococcus Rapid Screen - Final
Rapid Strep Screen (Group A) Negative
04/08/24 05:31 Nasal Screen MRSA (PCR) - Final
Nose MRSA not detected - performed by PCR methodology.
04/07/24 00:13 Influenza Types A & B (THOMAS) - Final
Nasal Swab Negative for Influenza A & B, NAAT
Negative results must be combined with clinical observations
and patient history.
Nucleic Acid Amplification test (NAAT)performed on the
[employer] platform.
[2024-04-11 23:00] VITALS: BP 125/75
[2024-04-12] MEDS: UNASYN IV (04:59)
[2024-04-12 07:14] LABS: Hematocrit 22.4 % (37.0-47.0); Hemoglobin 7.4 g/dL (12.0-16.0); Mean Corpuscular Hgb 29.4 pg (27.0-31.0); Mean Corpuscular Volume 88.9 fL (81.0-99.0); Platelet Count 27 10^3/uL (130-400); Red Blood Cell Count 2.52 10^6/uL (4.20-5.40); Red Cell Dist. Width 16.4 % (11.5-14.5); White Blood Cell Count 2.4 10^3/uL (4.8-10.8)
[2024-04-12 07:20] VITALS: BP 122/77
--- NOTE | 2024-04-12 07:26 | PTCARENOTE ---
Lab informed this RN of critical platelet count, result= 27. made aware.
--- NOTE | 2024-04-12 08:39 | W.PN.ID1 ---
Date of Service
Date of Service: April 12, 2024
Today's Communication
- switched to augmentin - 14 day course 04/07-04/20
Assessment / Plan
Tonsillitis with phlegmon
CML
Neutropenia
- ANC has not substantially improved yet - trial of gcsf planned for today
- blood cultures x2 in progress no growth to date
- dasantinib can be associated with neutropenia - currently on hold
- switched to augmentin - 14 day course
- reviewed red flags with patient - she will notify ID clinic if any relapse in symptoms
- follow up with oncology
Chief Complaint
-: Other (oropharygneal infection )
Subjective / Review of Systems
afebrile
bp stable
for trial of gcsf
Vital Signs / Physical Exam
Vital Signs
Vital Signs
Temp Pulse Resp BP Pulse Ox
98.4 F 61 18 122/77 97
04/12/24 07:20 04/12/24 07:20 04/12/24 07:20 04/12/24 07:20 04/12/24 07:20
Physical Exam
Constitutional: No Acute Distress
Cardiovascular: Regular Rate and S1/S2; Negative Murmur or Rub
Pulmonary: Clear and Symmetric; Negative Wheezes or Rales
Gastrointestinal: Soft, Non Tender, Non Distended and Normal Bowel Sounds
Skin: Warm and Dry; Negative Rash or Jaundice
Objective Data
Lab Data
Lab Results
04/12/24 06:29
04/11/24 06:38
PT 14.7 Sec (11.4-14.6) H 04/08/24 05:32
INR 1.10 04/08/24 05:32
APTT 20.0 Sec (23.4-35.0) L 04/08/24 05:32
Estimated Creat Clear > 125 ml/min 04/11/24 06:38
Most recent labs reviewed.
Micro Results:
04/08/24 06:19 Blood Culture - Preliminary
Blood/Venous No Growth in 4 days- Final report to follow
04/08/24 05:41 Blood Culture - Preliminary
Blood/Venous No Growth in 4 days- Final report to follow
04/06/24 20:32 Throat Culture - Final
Tonsil Usual Respiratory [place]
04/06/24 20:32 Streptococcus Screen (RODRICK) - Final
Throat/Pharynx No Beta Hemolytic Streptococci Isolated
Streptococcus Rapid Screen - Final
Rapid Strep Screen (Group A) Negative
04/08/24 05:31 Nasal Screen MRSA (PCR) - Final
Nose MRSA not detected - performed by PCR methodology.
04/07/24 00:13 Influenza Types A & B (THOMAS) - Final
Nasal Swab Negative for Influenza A & B, NAAT
Negative results must be combined with clinical observations
and patient history.
Nucleic Acid Amplification test (NAAT)performed on the
[employer] platform.
[2024-04-12 08:40] LABS: % Immature Granulocytes 0.4 % (0-0.5); % Lymphocytes 97.5 % (20.5-51.1); % Monocytes 0.4 % (1.7-9.3); % Neutrophils 1.7 % (42.2-75.2); Absolute Lymphocytes 2.4 10^3/uL (1.2-3.4); Nucleated Red Blood Cells % 0 %
--- NOTE | 2024-04-12 08:49 | PTCARENOTE ---
Lab informed this RN of critical absolute neutrophil count, result= 0.0. MD made aware.
[2024-04-12] MEDS: ANESTHETIC LOZENGE 1 LOZENGE PO (09:28)
[2024-04-12] MEDS: AUGMENTIN 875 MG/125 MG 1 TABLET PO ×2 (09:28→20:36)
[2024-04-12] MEDS: DELTASONE 10 MG PO (09:41)
--- NOTE | 2024-04-12 09:48 | W.PN.ONC ---
Today's Communication / Plan
-
daily Granix to start today
daily CBC w/ diff
Impression
Impression
CML
pancytopenia. No evidence of acute DIC with elevated fibrinogen. Iron studies c/w AOCD/inflammation. No B12 or folate deficiency. Hemolysis unlikely with normal LDH
neutropenic fever
L > R tonsillitis w/o abscess s/p laryngoscopy 04/07
weight gain, amenorrhea
Plan
Plan
ANC is still ZERO (suspect from marrow suppression for dasatinib (on hold), infection, antibiotics)
Will add daily Granix in hopes of neutrophil recovery and faster infection recovery
Monitor CBC w/ diff daily
hold off on transfusion again today as ideally would limit allogenic product exposure in case SCT is required for her CML management in future.
ENT and ID following
pain management
on IV abx and prednisone.
continue to hold dasatinib
neutropenic precautions
Transfuse Hgb <7 or as needed for sxs anemia. If transfusion indicated give leukoreduced, irradiated products.
Transfuse platelets <20K with NF or as needed for bleeding
avoid nsaids, antiplatelet, and anticoagulation with platelet count <50,000
OP follow up with Dr. Guajardo to determine if/when dasatinib can be resumed. It counts do not improve with improvement in infection discussed role for repeat bone marrow
Outpatient w/u re: amenorrhea and weight gain. No fluid retention noted.
Subjective/Objective
Subjective/Objective
sore throat slightly improved. no bleeding.
notes ongoing weight gain (since starting dasatinib) and no menses for many months. no chance she is
no dyspnea, no leg swelling
Vital Signs:
Vital Signs
Temp Pulse Resp BP Pulse Ox
98.4 F 61 18 122/77 97
04/12/24 07:20 04/12/24 07:20 04/12/24 07:20 04/12/24 07:20 04/12/24 07:20
Lab Results:
Laboratory Data
WBC 2.4 10^3/uL (4.8-10.8) L* 04/12/24 06:29
Hgb 7.4 g/dL (12.0-16.0) L 04/12/24 06:29
Plt Count 27 10^3/uL (130-400) L* 04/12/24 06:29
PT 14.7 Sec (11.4-14.6) H 04/08/24 05:32
INR 1.10 04/08/24 05:32
APTT 20.0 Sec (23.4-35.0) L 04/08/24 05:32
eGFR > 60.00 04/11/24 06:38
Orders
Orders
Orders From Last 24 Hours
04/12/24 10:00
Tbo-Filgrastim [Granix] 300 mcg SC DAILY
[2024-04-12] MEDS: GRANIX 300 MCG SC (10:38)
--- NOTE | 2024-04-12 11:43 | PN.CDI ---
CDI
- -
CDI:
Physician Documentation Request
Admit Date: 04/07/24 05:08
Dear Doctor Lorrie,
Patient admitted with acute pharyngitis.
2/3 PN,'....CML on dasatinib....Noted for pancytopenia.'
Please provide in your note the likely etiology/ etiologies of pancytopenia:
Multifactorial due to chemo and CML
Chemo only
CML only
Other
Use of terms such as suspected, likely, concern for, or probable (associated with a specific diagnosis that is being evaluated, monitored, or treated as if it exists) are acceptable and can be coded in the inpatient setting, when documented at the
time of discharge.
Thank you,
Temi MARTÍNEZ,RN,CCDS
CDI Specialist
Available via [place] text
Please use your independent medical judgment in providing your response.
--- NOTE | 2024-04-12 13:31 | W.PN.HOSP.TC ---
Today's Communication/Plan
-
Afebrile and symptomatically improved.
Diet has been advanced per
Antibiotics changed to Augmentin.
G-CSF today following ANC in a.m.
Assessment / Plan
Assessment / Plan
Impression:
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
Acute pharyngitis/tonsillitis.
CML.
Immunosuppressed status.
Leukopenia.
Chronic anemia.
Thrombocytopenia
Bipolar disorder with history of psychosis
Plan:
Pharyngitis, tonsillitis
COVID-negative, flu negative. [place] negative.
MRSA screen negative
Blood cultures NGTD
CT neck findings consistent with bilateral tonsillitis, left-sided pharyngitis. Concerning for phlegmon and epiglottitis
ENT input appreciated.
Laryngoscopy performed with no evidence of epiglottitis or airway compromise. There is a significant tonsillitis, left worse than right with no evidence of abscess.
Initiated on IV antibiotics (Unasyn) transition to Augmentin on 04/12
Repeat ENT exam on 04/08 with no abscess.
Pain improved and controlled with anti-inflammatory.
Diet has been advanced to solids.
ENT recommends to transition to oral prednisone at 30 mg and taper by 10 mg on every third day
CML.
Noted for pancytopenia
Neutropenia WBC 2.2 ANC 0
Hold Dasatinib
Oncology following
Initiated on G-CSF on 04/12
Follow CBC; check type/screen. Hb 7.1 - no indication for transfusion today per Oncologist.
Bipolar currently not on any antipsychotic medications.
- Stable. Isolated prior instance of psychosis.
- Not on any chronic mood stabilizing meds, etc.
- Prior adverse reaction / tardive dyskinesia with antipsychotics.
- Follow for any changes in mood.
DVT Prophylaxis: SCDs
Code Status: Full
Anticipated Discharge: 24 - 48 hours
Subjective/Interval History
-
Date of Service: April 12, 2024
Objective Data
-
Labs:
Laboratory Results
04/12/24
06:29
WBC 2.4 L*
Hgb 7.4 L
Hct 22.4 L
Plt Count 27 L*
Vital Signs:
Vital Signs
Temp Pulse Resp BP Pulse Ox
98.4 F 61 18 122/77 97
04/12/24 07:20 04/12/24 07:20 04/12/24 07:20 04/12/24 07:20 04/12/24 07:20
I&O
04/11/24 04/12/24 04/13/24
06:59 06:59 06:59
Intake Total 1440 / 1440 960 / 960
Balance 1440 / 1440 960 / 960
Physical Exam
-
General: No Apparent Distress
HEENT: Normocephalic and Atraumatic
Respiratory: Negative Wheezes
Cardiac: Regular Rhythm and S1/S2
GI: Soft and Nontender
Genito-urinary: No Costovertebral Tender
Musculoskeletal: No Edema
Neuro: AO x 3
Hematologic / Lymphatic: No Lymphadenopathy
Psych: Calm
[2024-04-12 14:58] VITALS: BP 107/67
[2024-04-12 23:00] VITALS: BP 101/65
--- NOTE | 2024-04-13 07:11 | W.PN.ONC2 ---
Today's Communication / Plan
-
Await CBC results. Continue to hold Dasatinib and continue Granix for now. If ANC begins to bump, she seems to be clinically improved and can probably be discharged on oral antibiotic regimen for tonsillitis. Patient will follow-up with
[facility] in about 1 to 2 weeks to review follow-up CBC and decide whether patient needs a bone marrow biopsy if still cytopenic or okay to resume Dasatinib
Impression
Impression
CML
pancytopenia. No evidence of acute DIC with elevated fibrinogen. Iron studies c/w AOCD/inflammation. No B12 or folate deficiency. Hemolysis unlikely with normal LDH
neutropenic fever
L > R tonsillitis w/o abscess s/p laryngoscopy 04/07
weight gain, amenorrhea
Plan
Plan
ANC was ZERO yesterday (suspect from marrow suppression for dasatinib (on hold), infection, antibiotics)
Daily Granix 300 QD started in hopes of neutrophil recovery and faster infection recovery
Monitor CBC w/ diff daily
OP follow up with Dr. Yanez 1-2 weeks to determine if/when dasatinib can be resumed. It counts do not improve with improvement in infection discussed role for repeat bone marrow
Subjective/Objective
Chief Complaint
ACS Heme Onc
Subjective
Tells me she is feeling better. Follow-up CBC pending. Yesterday she was started on Granix to try to accelerate her WBC cell count recovery. Dasatinib currently on hold with pancytopenia.
Vital Signs:
Vital Signs
Temp Pulse Resp BP Pulse Ox
98.7 F 63 16 101/65 98
04/12/24 23:00 04/12/24 23:00 04/12/24 23:00 04/12/24 23:00 04/12/24 23:00
Lab Results:
Laboratory Data
WBC 2.4 10^3/uL (4.8-10.8) L* 04/12/24 06:29
Hgb 7.4 g/dL (12.0-16.0) L 04/12/24 06:29
Plt Count 27 10^3/uL (130-400) L* 04/12/24 06:29
PT 14.7 Sec (11.4-14.6) H 04/08/24 05:32
INR 1.10 04/08/24 05:32
APTT 20.0 Sec (23.4-35.0) L 04/08/24 05:32
eGFR > 60.00 04/11/24 06:38
Physical Exam
HEENT: No Jaundice
Cardiology: S1 and S2
Pulmonary: Clear
GI: Soft
Extremities: No C/C/E
[2024-04-13 07:21] VITALS: BP 117/69
[2024-04-13] MEDS: AUGMENTIN 875 MG/125 MG 1 TABLET PO ×2 (08:19→20:10)
[2024-04-13] MEDS: GRANIX 300 MCG SC (08:19)
[2024-04-13] MEDS: DELTASONE 10 MG PO (08:19)
[2024-04-13 08:41] LABS: Hematocrit 25.7 % (37.0-47.0); Hemoglobin 8.5 g/dL (12.0-16.0); Mean Corp Hgb Conc. 33.1 g/dL (33.0-37.0); Mean Corpuscular Hgb 29.2 pg (27.0-31.0); Mean Corpuscular Volume 88.3 fL (81.0-99.0); Platelet Count 28 10^3/uL (130-400); Red Blood Cell Count 2.91 10^6/uL (4.20-5.40); Red Cell Dist. Width 16.3 % (11.5-14.5); White Blood Cell Count 2.4 10^3/uL (4.8-10.8)
[2024-04-13 08:54] LABS: % Immature Granulocytes 0.4 % (0-0.5); % Lymphocytes 95.4 % (20.5-51.1); % Monocytes 0.4 % (1.7-9.3); % Neutrophils 3.8 % (42.2-75.2); Absolute Lymphocytes 2.3 10^3/uL (1.2-3.4); Absolute Neutrophils 0.1 10^3/uL (1.4-6.5); Nucleated Red Blood Cells % 0.8 %
--- NOTE | 2024-04-13 10:08 | PTCARENOTE ---
Lab informed this RN of critical WBC=2.4, critical abs neutro=0.1, critical plt=28. made aware.
--- NOTE | 2024-04-13 10:43 | CM ---
Patient seen at bedside. Patient states that she is unsure of plans for discharge but does not anticipate any needs. CM will continue to follow for discharge planning needs.
Plan; home with no needs anticipated.
--- NOTE | 2024-04-13 15:00 | W.PN.HOSP.TC ---
Today's Communication/Plan
-
Afebrile
Improved pharyngitis symptoms.
Able to tolerate oral intake.
Transition to oral antibiotics.
Status post G-CSF first dose on 04/12 with minimal response. ANC remains at 0.1
Discussed with hematology/oncology. Plan is to monitor for GSF response over the next 24 to 48 hours. If minimal, will consider inpatient bone marrow
Assessment / Plan
Assessment / Plan
Impression:
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
Acute pharyngitis/tonsillitis.
CML.
Immunosuppressed status.
Leukopenia.
Chronic anemia.
Thrombocytopenia
Bipolar disorder with history of psychosis
Plan:
Pharyngitis, tonsillitis
COVID-negative, flu negative. [place] negative.
MRSA screen negative
Blood cultures NGTD
CT neck findings consistent with bilateral tonsillitis, left-sided pharyngitis. Concerning for phlegmon and epiglottitis
ENT input appreciated.
Laryngoscopy performed with no evidence of epiglottitis or airway compromise. There is a significant tonsillitis, left worse than right with no evidence of abscess.
Initiated on IV antibiotics (Unasyn) transition to Augmentin on 04/12
Repeat ENT exam on 04/08 with no abscess.
Pain improved and controlled with anti-inflammatory.
Diet has been advanced to solids.
ENT recommends to transition to oral prednisone at 30 mg and taper by 10 mg on every third day
CML.
Noted for pancytopenia
Neutropenia WBC 2.2 ANC 0
Hold Dasatinib
Oncology following
Initiated on G-CSF on 04/12
Follow CBC; check type/screen. Hb 7.1 - no indication for transfusion today per Oncologist.
Bipolar currently not on any antipsychotic medications.
- Stable. Isolated prior instance of psychosis.
- Not on any chronic mood stabilizing meds, etc.
- Prior adverse reaction / tardive dyskinesia with antipsychotics.
- Follow for any changes in mood.
DVT Prophylaxis: SCDs
Code Status: Full
Anticipated Discharge: 24 - 48 hours
Subjective/Interval History
-
Date of Service: April 13, 2024
Objective Data
-
Labs:
Laboratory Results
04/13/24
07:52
WBC 2.4 L*
Hgb 8.5 L
Hct 25.7 L
Plt Count 28 L*
Vital Signs:
Vital Signs
Temp Pulse Resp BP Pulse Ox
98.3 F 63 16 117/69 97
04/13/24 07:21 04/13/24 07:21 04/13/24 07:21 04/13/24 07:21 04/13/24 07:21
I&O
04/12/24 04/13/24 04/14/24
06:59 06:59 06:59
Intake Total 960 / 960 1560 / 1560
Balance 960 / 960 1560 / 1560
Physical Exam
-
General: No Apparent Distress
HEENT: Normocephalic and Atraumatic
Respiratory: Negative Wheezes
Cardiac: Regular Rhythm and S1/S2
GI: Soft and Nontender
Genito-urinary: No Costovertebral Tender
Musculoskeletal: No Edema
Neuro: AO x 3
Hematologic / Lymphatic: No Lymphadenopathy
Psych: Calm
[2024-04-13 15:13] VITALS: BP 109/75
[2024-04-13 23:05] VITALS: BP 98/52
[2024-04-14 06:32] LABS: Hematocrit 29.4 % (37.0-47.0); Hemoglobin 9.7 g/dL (12.0-16.0); Platelet Count 32 10^3/uL (130-400); Red Blood Cell Count 3.34 10^6/uL (4.20-5.40); Red Cell Dist. Width 16.5 % (11.5-14.5); White Blood Cell Count 4.1 10^3/uL (4.8-10.8)
[2024-04-14 07:24] LABS: % Basophils 0.2 % (0-2); % Eosinophils 0.2 % (0-6); % Immature Granulocytes 0.5 % (0-0.5); % Lymphocytes 96.3 % (20.5-51.1); % Monocytes 0.5 % (1.7-9.3); % Neutrophils 2.3 % (42.2-75.2); Absolute Lymphocytes 3.9 10^3/uL (1.2-3.4); Absolute Neutrophils 0.1 10^3/uL (1.4-6.5); Nucleated Red Blood Cells % 0.5 %
[2024-04-14 07:27] VITALS: BP 98/65
--- NOTE | 2024-04-14 08:40 | W.PN.ENT ---
Today's Communication
-
as above
Impression / Plan
-
Resolving tonsillitis.
From our point of view she is cleared for discharge today on another 5 days or so of PO antibiotics
She should f/u with us in office
Subjective Data
-
The patient feels much better; taking normal diet with no significant pain. No trismus or fever
Objective Data
-
Vital Signs
Temp Pulse Resp BP Pulse Ox
97.6 F 77 17 98/65 96
04/14/24 07:27 04/14/24 07:27 04/14/24 07:27 04/14/24 07:27 04/14/24 07:27
Intake & Output
04/13/24 04/14/24 04/15/24
06:59 06:59 06:59
Intake:
Oral fluids 1560 / 1560 720 / 720
Other:
Number of approximated MODERATE 1 1
amounts of urine
Lab Results
04/14/24 06:03
04/11/24 06:38
PT 14.7 Sec (11.4-14.6) H 04/08/24 05:32
INR 1.10 04/08/24 05:32
APTT 20.0 Sec (23.4-35.0) L 04/08/24 05:32
Calcium 8.1 mg/dl (8.4-10.2) L 04/11/24 06:38
Physical Exam
-
Moderate tonsillar hypertrophy and erythema but no exudate, trismus or suggestion of abscess.
Normal speaking voice
[2024-04-14] MEDS: GRANIX 300 MCG SC (08:59)
[2024-04-14] MEDS: AUGMENTIN 875 MG/125 MG 1 TABLET PO ×2 (08:59→20:22)
--- NOTE | 2024-04-14 11:45 | W.PN.ONC ---
Today's Communication / Plan
-
Patient continues to have absolute neutropenia ANC 100
Okay to discharge with ANC>500
Clinically less symptomatic
Would continue Granix
Failure of recovery will require bone marrow biopsy
Impression
Impression
CML
pancytopenia. No evidence of acute DIC with elevated fibrinogen. Iron studies c/w AOCD/inflammation. No B12 or folate deficiency. Hemolysis unlikely with normal LDH
neutropenic fever
L > R tonsillitis w/o abscess s/p laryngoscopy 04/07
weight gain, amenorrhea
Subjective/Objective
Subjective/Objective
No new complaints
Vital Signs:
Vital Signs
Temp Pulse Resp BP Pulse Ox
97.6 F 77 17 98/65 96
04/14/24 07:27 04/14/24 07:27 04/14/24 07:27 04/14/24 07:27 04/14/24 10:10
Unchanged
Lab Results:
Laboratory Data
WBC 4.1 10^3/uL (4.8-10.8) L 04/14/24 06:03
Hgb 9.7 g/dL (12.0-16.0) L 04/14/24 06:03
Plt Count 32 10^3/uL (130-400) L 04/14/24 06:03
PT 14.7 Sec (11.4-14.6) H 04/08/24 05:32
INR 1.10 04/08/24 05:32
APTT 20.0 Sec (23.4-35.0) L 04/08/24 05:32
eGFR > 60.00 04/11/24 06:38
[2024-04-14 15:49] VITALS: BP 99/68
--- NOTE | 2024-04-14 16:53 | W.PN.HOSP.TC ---
Today's Communication/Plan
-
Afebrile with improved symptoms of pharyngitis/tonsillitis.
ANC remains at 100. Continue G-CSF and monitor closely.
Discussed with oncology
Assessment / Plan
Assessment / Plan
Impression:
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
Acute pharyngitis/tonsillitis.
CML.
Immunosuppressed status.
Leukopenia.
Chronic anemia.
Thrombocytopenia
Bipolar disorder with history of psychosis
Plan:
Pharyngitis, tonsillitis
COVID-negative, flu negative. [place] negative.
MRSA screen negative
Blood cultures NGTD
CT neck findings consistent with bilateral tonsillitis, left-sided pharyngitis. Concerning for phlegmon and epiglottitis
ENT input appreciated.
Laryngoscopy performed with no evidence of epiglottitis or airway compromise. There is a significant tonsillitis, left worse than right with no evidence of abscess.
Initiated on IV antibiotics (Unasyn) transition to Augmentin on 04/12
Repeat ENT exam on 04/08 with no abscess.
Pain improved and controlled with anti-inflammatory.
Diet has been advanced to solids.
ENT recommends to transition to oral prednisone at 30 mg and taper by 10 mg on every third day
CML.
Noted for pancytopenia with possible differentials including Dasatinib, versus acute infection, versus bone marrow process
Neutropenia WBC 2.2 ANC 0
Hold Dasatinib
Oncology following
Initiated on G-CSF on 04/12
Follow CBC; check type/screen. Hb 7.1 - no indication for transfusion today per Oncologist.
Bipolar currently not on any antipsychotic medications.
- Stable. Isolated prior instance of psychosis.
- Not on any chronic mood stabilizing meds, etc.
- Prior adverse reaction / tardive dyskinesia with antipsychotics.
- Follow for any changes in mood.
DVT Prophylaxis: SCDs
Code Status: Full
Anticipated Discharge: 24 - 48 hours
Subjective/Interval History
-
Date of Service: April 14, 2024
Objective Data
-
Labs:
Laboratory Results
04/14/24
06:03
WBC 4.1 L
Hgb 9.7 L
Hct 29.4 L
Plt Count 32 L
Vital Signs:
Vital Signs
Temp Pulse Resp BP Pulse Ox
100.2 F 84 16 99/68 97
04/14/24 15:49 04/14/24 15:49 04/14/24 15:49 04/14/24 15:49 04/14/24 15:49
I&O
04/13/24 04/14/24 04/15/24
06:59 06:59 06:59
Intake Total 1560 / 1560 720 / 720
Balance 1560 / 1560 720 / 720
Physical Exam
-
General: No Apparent Distress
HEENT: Normocephalic and Atraumatic
Respiratory: Negative Wheezes
Cardiac: Regular Rhythm and S1/S2
GI: Soft and Nontender
Genito-urinary: No Costovertebral Tender
Musculoskeletal: No Edema
Neuro: AO x 3
Hematologic / Lymphatic: No Lymphadenopathy
Psych: Calm
--- NOTE | 2024-04-14 18:42 | PTCARENOTE ---
Temp 100.2. pt refused tylenol. Will continue to monitor.
[2024-04-14 23:15] VITALS: BP 94/70
[2024-04-15 06:09] LABS: Hematocrit 29.1 % (37.0-47.0); Hemoglobin 9.8 g/dL (12.0-16.0); Mean Corp Hgb Conc. 33.7 g/dL (33.0-37.0); Mean Corpuscular Hgb 29.5 pg (27.0-31.0); Mean Corpuscular Volume 87.7 fL (81.0-99.0); Platelet Count 41 10^3/uL (130-400); Red Blood Cell Count 3.32 10^6/uL (4.20-5.40); Red Cell Dist. Width 16.8 % (11.5-14.5); White Blood Cell Count 3.7 10^3/uL (4.8-10.8)
[2024-04-15 06:56] LABS: % Eosinophils 0.3 % (0-6); % Immature Granulocytes 0.3 % (0-0.5); % Lymphocytes 96.7 % (20.5-51.1); % Monocytes 0.8 % (1.7-9.3); % Neutrophils 1.9 % (42.2-75.2); Absolute Lymphocytes 3.6 10^3/uL (1.2-3.4); Absolute Neutrophils 0.1 10^3/uL (1.4-6.5); Nucleated Red Blood Cells % 0.8 %
--- NOTE | 2024-04-15 07:36 | PTCARENOTE ---
Lab informed this RN of critical abs neutro = 0.1, made aware.
[2024-04-15 07:38] VITALS: BP 93/63
[2024-04-15] MEDS: AUGMENTIN 875 MG/125 MG 1 TABLET PO ×2 (08:06→21:00)
[2024-04-15] MEDS: GRANIX 300 MCG SC (08:07)
--- NOTE | 2024-04-15 10:23 | PTCARENOTE ---
This RN offered new sheets, blankets, gown and products for hygiene care. Pt refused.
--- NOTE | 2024-04-15 12:18 | W.PN.ONC ---
Today's Communication / Plan
-
follow CBC
cont GCSF
Impression
Impression
CML
pancytopenia. No evidence of acute DIC with elevated fibrinogen. Iron studies c/w AOCD/inflammation. No B12 or folate deficiency. Hemolysis unlikely with normal LDH
neutropenic fever
L > R tonsillitis w/o abscess s/p laryngoscopy 04/07
weight gain, amenorrhea
Plan
Plan
ANC remains low
Daily Granix 300 QD started in hopes of neutrophil recovery and faster infection recovery
Monitor CBC w/ diff daily
OP follow up with Dr. Yanez 1-2 weeks to determine if/when dasatinib can be resumed
It counts do not improve with improvement in infection - repeat bone marrow would be indicated
Subjective/Objective
Subjective/Objective
temp to 100.2 last evening - no fevers today
Vital Signs:
Vital Signs
Temp Pulse Resp BP Pulse Ox
98.6 F 94 16 93/63 98
04/15/24 07:38 04/15/24 07:38 04/15/24 07:38 04/15/24 07:38 04/15/24 07:38
Lab Results:
Laboratory Data
WBC 3.7 10^3/uL (4.8-10.8) L 04/15/24 05:50
Hgb 9.8 g/dL (12.0-16.0) L 04/15/24 05:50
Plt Count 41 10^3/uL (130-400) L D 04/15/24 05:50
PT 14.7 Sec (11.4-14.6) H 04/08/24 05:32
INR 1.10 04/08/24 05:32
APTT 20.0 Sec (23.4-35.0) L 04/08/24 05:32
eGFR > 60.00 04/11/24 06:38
Exam: unchanged
--- NOTE | 2024-04-15 14:18 | W.PN.HOSP.TC ---
Today's Communication/Plan
-
Continue oral antibiotics
Continue Granix
Follow-up CBC
Assessment / Plan
Assessment / Plan
Impression:
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
Acute pharyngitis/tonsillitis.
CML.
Immunosuppressed status.
Leukopenia.
Chronic anemia.
Thrombocytopenia
Bipolar disorder with history of psychosis
Plan:
Pharyngitis, tonsillitis
COVID-negative, flu negative. [place] negative.
MRSA screen negative
Blood cultures NGTD
CT neck findings consistent with bilateral tonsillitis, left-sided pharyngitis. Concerning for phlegmon and epiglottitis
ENT input appreciated.
Laryngoscopy performed with no evidence of epiglottitis or airway compromise. There is a significant tonsillitis, left worse than right with no evidence of abscess.
Initiated on IV antibiotics (Unasyn) transition to Augmentin on 04/12 with plan to complete 14-day course of antibiotics
Repeat ENT exam on 04/08 with no abscess.
Pain improved and controlled with anti-inflammatory.
Diet has been advanced to solids.
ENT recommends to transition to oral prednisone at 30 mg and taper by 10 mg on every third day
CML.
Noted for pancytopenia with possible differentials including Dasatinib, versus acute infection, versus bone marrow process
Neutropenia WBC 2.2 ANC 0
Hold Dasatinib
Oncology following
Initiated on G-CSF on 04/12
Follow CBC; check type/screen. Hb 7.1 - no indication for transfusion today per Oncologist.
Bipolar currently not on any antipsychotic medications.
- Stable. Isolated prior instance of psychosis.
- Not on any chronic mood stabilizing meds, etc.
- Prior adverse reaction / tardive dyskinesia with antipsychotics.
- Follow for any changes in mood.
DVT Prophylaxis: SCDs
Code Status: Full
Anticipated Discharge: 24 - 48 hours
Subjective/Interval History
-
Date of Service: April 15, 2024
Objective Data
-
Labs:
Laboratory Results
04/15/24
05:50
WBC 3.7 L
Hgb 9.8 L
Hct 29.1 L
Plt Count 41 L D
Vital Signs:
Vital Signs
Temp Pulse Resp BP Pulse Ox
98.6 F 94 16 93/63 98
04/15/24 07:38 04/15/24 07:38 04/15/24 07:38 04/15/24 07:38 04/15/24 07:38
I&O
04/14/24 04/15/24 04/16/24
06:59 06:59 06:59
Intake Total 720 / 720 1080 / 1080
Balance 720 / 720 1080 / 1080
Physical Exam
-
General: No Apparent Distress
HEENT: Normocephalic and Atraumatic
Respiratory: Negative Wheezes
Cardiac: Regular Rhythm and S1/S2
GI: Soft and Nontender
Genito-urinary: No Costovertebral Tender
Musculoskeletal: No Edema
Neuro: AO x 3
Hematologic / Lymphatic: No Lymphadenopathy
Psych: Calm
[2024-04-15 15:26] VITALS: BP 103/72
--- NOTE | 2024-04-15 19:29 | W.PN.ID1 ---
Date of Service
Date of Service: April 15, 2024
Today's Communication
- continue with augmentin - 14 day course
patient tells me she needs to return to work tomorrow and plans to follow up with her oncologist outpatient
Assessment / Plan
Tonsillitis with phlegmon - symptoms markedly improved
CML
Neutropenia
- ANC has not substantially improved yet - remains on GCSF
- blood cultures x2 in progress no growth to date
- dasantinib can be associated with neutropenia - currently on hold
- continue with augmentin - 14 day course
- reviewed red flags with patient - she will notify ID clinic if any relapse in symptoms
- follow up with oncology
Chief Complaint
-: Other (oropharygneal infection )
Subjective / Review of Systems
afebrile
bp stable
tells me throat is much better
Vital Signs / Physical Exam
Vital Signs
Vital Signs
Temp Pulse Resp BP Pulse Ox
99.5 F 85 16 103/72 100
04/15/24 15:26 04/15/24 15:26 04/15/24 15:26 04/15/24 15:26 04/15/24 15:26
Physical Exam
Constitutional: No Acute Distress
Cardiovascular: Regular Rate
Pulmonary: Symmetric and Non Labored
Gastrointestinal: Non Distended
Skin: Negative Rash or Jaundice
Neurological: Awake
Objective Data
Lab Data
Lab Results
04/15/24 05:50
04/11/24 06:38
PT 14.7 Sec (11.4-14.6) H 04/08/24 05:32
INR 1.10 04/08/24 05:32
APTT 20.0 Sec (23.4-35.0) L 04/08/24 05:32
Estimated Creat Clear > 125 ml/min 04/11/24 06:38
Most recent labs reviewed.
Micro Results:
04/08/24 06:19 Blood Culture - Final
Blood/Venous No Growth - Final Report
04/08/24 05:41 Blood Culture - Final
Blood/Venous No Growth - Final Report
04/06/24 20:32 Throat Culture - Final
Tonsil Usual Respiratory [place]
04/06/24 20:32 Streptococcus Screen (RODRICK) - Final
Throat/Pharynx No Beta Hemolytic Streptococci Isolated
Streptococcus Rapid Screen - Final
Rapid Strep Screen (Group A) Negative
04/08/24 05:31 Nasal Screen MRSA (PCR) - Final
Nose MRSA not detected - performed by PCR methodology.
04/07/24 00:13 Influenza Types A & B (THOMAS) - Final
Nasal Swab Negative for Influenza A & B, NAAT
Negative results must be combined with clinical observations
and patient history.
Nucleic Acid Amplification test (NAAT)performed on the
[employer] platform.
[2024-04-15 23:10] VITALS: BP 91/54
[2024-04-16 06:37] LABS: Hematocrit 28.9 % (37.0-47.0); Hemoglobin 9.6 g/dL (12.0-16.0); Mean Corp Hgb Conc. 33.2 g/dL (33.0-37.0); Mean Corpuscular Volume 87.3 fL (81.0-99.0); Platelet Count 32 10^3/uL (130-400); Red Blood Cell Count 3.31 10^6/uL (4.20-5.40); Red Cell Dist. Width 16.6 % (11.5-14.5); White Blood Cell Count 3.1 10^3/uL (4.8-10.8)
[2024-04-16 07:58] VITALS: BP 89/53
[2024-04-16] MEDS: GRANIX 300 MCG SC (08:28)
[2024-04-16] MEDS: AUGMENTIN 875 MG/125 MG 1 TABLET PO ×2 (08:28→21:09)
[2024-04-16 09:40] LABS: % Basophils 0.3 % (0-2); % Lymphocytes 96.8 % (20.5-51.1); % Monocytes 0.6 % (1.7-9.3); % Neutrophils 2.3 % (42.2-75.2); Absolute Neutrophils 0.1 10^3/uL (1.4-6.5); Nucleated Red Blood Cells % 1.3 %
--- NOTE | 2024-04-16 14:20 | W.PN.HOSP.TC ---
Addendum entered and electronically signed by Harjinder Longoria DO 04/16/24 17:39:
Spoke with oncology. Currently with concern that her neutropenia remains persistent despite improvement of her active infection. States that they would consider bone marrow biopsy while patient is here. Increasing Granix to 480 mcg. Maintain
high vigilance for signs of sepsis/infection
Original Note:
Today's Communication/Plan
-
Possible discharge later
Assessment / Plan
Assessment / Plan
#Pharyngitis, tonsillitis
-COVID-negative, flu negative, [place] negative, MRSA screen negative, Blood cultures NGTD
-CT neck findings consistent with bilateral tonsillitis, left-sided pharyngitis
-ENT performed Laryngoscopy with no evidence of epiglottitis or airway compromise, did show L>R tonsiliitis
-Initiated on IV antibiotics (Unasyn) transition to Augmentin on 04/12 with plan to complete 14-day course of antibiotics
-Pain improved and controlled with anti-inflammatory; Diet has been advanced to solids.
-Continue prednisone taper from 30 mg, by 10 mg every third day
-Continue Augmentin through 04/23 to complete 14-day course of antibiotics
#CML
#Pancytopenia with absolute neutropenia
-Noted for pancytopenia with possible differentials including Dasatinib, versus acute infection, versus bone marrow process
-Neutropenia WBC 2.2 ANC 0.1 over the last 4 days; was 0.0 prior to that
-Hold Dasatinib; Oncology started 300 mcg of G-CSF on 04/12
-Trend CBC and absolute neutrophil count
-Monitor for fevers
-Neutropenic precautions
#Bipolar currently not on any antipsychotic medications.
-Stable. Isolated prior instance of psychosis.
-Not on any chronic mood stabilizing meds, etc.
-Prior adverse reaction / tardive dyskinesia with antipsychotics.
-Follow for any changes in mood.
DVT Prophylaxis: SCDs
Code Status: Full
Anticipated Discharge: Within 24 hours
Subjective/Interval History
-
Date of Service: April 16, 2024
Seen and examined at the bedside. No acute events reported overnight. AFVSS this morning
Remains significantly neutropenic with ANC 0.1 x 10^3.
Clinically she feels better, residual sore throat though tolerating full diet. Denies fevers or chills.
Objective Data
-
Labs:
Laboratory Results
04/16/24
06:11
WBC 3.1 L
Hgb 9.6 L
Hct 28.9 L
Plt Count 32 L D
Vital Signs:
Vital Signs
Temp Pulse Resp BP Pulse Ox
99.6 F 85 16 89/53 99
04/16/24 07:58 04/16/24 07:58 04/16/24 07:58 04/16/24 07:58 04/16/24 07:58
I&O
04/15/24 04/16/24 04/17/24
06:59 06:59 06:59
Intake Total 1080 / 1080 720 / 720
Balance 1080 / 1080 720 / 720
Review of Systems
-
History Source: Patient
All other systems: Reviewed and negative
Physical Exam
-
General: Well Developed, Well Nourished and No Apparent Distress
HEENT: Normocephalic, Atraumatic, Moist Mucous Membranes and Other (pharyngeal erythema without exudate); Negative Neck Masses
Respiratory: Clear to Auscultation, Non Labored Respirations and Other (No stridor)
Cardiac: Regular Rhythm and S1/S2; Negative Murmur, Rub or Gallop
GI: Soft, Nontender, Nondistended and Normal Bowel Sounds
Musculoskeletal: No Clubbing, No Cyanosis and No Edema
Skin: Warm, Dry and Normal Turgor; Negative Rash
Neuro: AO x 3 and Nonfocal/Grossly Intact
Psych: Calm
Data Reviewed
-
Labs: Labs Reviewed by me and Discussed with Patient
[2024-04-16 15:11] VITALS: BP 99/63
[2024-04-16 23:17] VITALS: BP 97/66
[2024-04-17 07:30] VITALS: BP 97/65
[2024-04-17] MEDS: AUGMENTIN 875 MG/125 MG 1 TABLET PO ×2 (08:18→21:11)
[2024-04-17] MEDS: GRANIX 480 MCG SC (08:19)
[2024-04-17 09:29] LABS: Blood Urea Nitrogen 14 mg/dl (7-17); Calcium 8.9 mg/dl (8.4-10.2); Carbon Dioxide 26 mmol/L (22-30); Chloride 103 mmol/L (98-107); Estimated Creatinine Clearance > 125 ml/min; Glucose 148 mg/dl (70-99); Sodium 139 mmol/L (135-145); eGFR > 60.00
[2024-04-17 09:42] LABS: Hematocrit 26.6 % (37.0-47.0); Hemoglobin 8.9 g/dL (12.0-16.0); Mean Corp Hgb Conc. 33.5 g/dL (33.0-37.0); Mean Corpuscular Hgb 29.1 pg (27.0-31.0); Mean Corpuscular Volume 86.9 fL (81.0-99.0); Platelet Count 34 10^3/uL (130-400); Red Blood Cell Count 3.06 10^6/uL (4.20-5.40); Red Cell Dist. Width 16.7 % (11.5-14.5); White Blood Cell Count 2.9 10^3/uL (4.8-10.8)
--- NOTE | 2024-04-17 11:35 | W.PN.HOSP.TC ---
Today's Communication/Plan
-
Trend CBC with ANC
Monitor for fevers
Continue G-CSF at 480 mcg
Plan for bone marrow biopsy
Continue antibiotics (last day 04/23) and steroid taper
Assessment / Plan
Assessment / Plan
#Pharyngitis, tonsillitis
-COVID-negative, flu negative, [place] negative, MRSA screen negative, Blood cultures NGTD
-CT neck findings consistent with bilateral tonsillitis, left-sided pharyngitis
-ENT performed Laryngoscopy with no evidence of epiglottitis or airway compromise, did show L>R tonsiliitis
-Initiated on IV antibiotics (Unasyn) transition to Augmentin on 04/12 with plan to complete 14-day course of antibiotics
-Pain improved and controlled with anti-inflammatory; Diet has been advanced to solids.
-Continue prednisone taper from 30 mg, by 10 mg every third day
-Continue Augmentin through 04/23 to complete 14-day course of antibiotics
#CML
#Pancytopenia with absolute neutropenia
-Noted for pancytopenia with possible differentials including Dasatinib, versus acute infection, versus bone marrow process
-Neutropenia WBC 2.2 ANC 0.1 over the last 4 days; was 0.0 prior to that
-Hold Dasatinib; Oncology started 300 mcg of G-CSF on 04/12; increased to 480 mcg on 04/17
-Trend CBC and absolute neutrophil count
-Monitor for fevers
-Neutropenic precautions
-Plan for bone marrow biopsy to rule out myelofibrosis
#Bipolar currently not on any antipsychotic medications.
-Stable. Isolated prior instance of psychosis.
-Not on any chronic mood stabilizing meds, etc.
-Prior adverse reaction / tardive dyskinesia with antipsychotics.
-Follow for any changes in mood.
DVT Prophylaxis: SCDs
Code Status: Full
Anticipated Discharge: > 48 hours
Subjective/Interval History
-
Date of Service: April 17, 2024
Seen and examined at bedside. No acute events reported overnight. AFVSS this morning, no fevers
CBC came back without differential, stat differential added onto follow-up ANC
Her sore throat continues to improve, she denies any new complaints
Objective Data
-
Labs:
Laboratory Results
04/17/24
09:08
WBC 2.9 L
Hgb 8.9 L
Hct 26.6 L
Plt Count 34 L
Sodium 139
Potassium 4.0
Chloride 103
Carbon Dioxide 26
BUN 14
Creatinine 0.5 L
Glucose 148 H
Calcium 8.9
Vital Signs:
Vital Signs
Temp Pulse Resp BP Pulse Ox
98.4 F 95 16 97/65 100
04/17/24 07:30 04/17/24 07:30 04/17/24 07:30 04/17/24 07:30 04/17/24 07:30
I&O
04/16/24 04/17/24 04/18/24
06:59 06:59 06:59
Intake Total 720 / 720 960 / 960
Balance 720 / 720 960 / 960
Review of Systems
-
History Source: Patient
All other systems: Reviewed and negative
Physical Exam
-
General: Well Developed, Well Nourished, No Apparent Distress and Comfortable
HEENT: Normocephalic, Atraumatic, Moist Mucous Membranes and Other (Improved pharyngeal erythema, remains without exudate)
Respiratory: Clear to Auscultation and Non Labored Respirations
Cardiac: Regular Rhythm and S1/S2; Negative Murmur, Rub or Gallop
GI: Soft, Nontender, Nondistended and Normal Bowel Sounds
Musculoskeletal: No Clubbing, No Cyanosis and No Edema
Skin: Warm, Dry and Normal Turgor; Negative Rash
Neuro: AO x 3 and Nonfocal/Grossly Intact
Psych: Calm
Data Reviewed
-
Labs: Labs Reviewed by me, Discussed with Physician (Oncologist) and Discussed with Patient
[2024-04-17 11:43] LABS: % Basophils 0.3 % (0-2); % Immature Granulocytes 0.3 % (0-0.5); % Lymphocytes 94.5 % (20.5-51.1); % Monocytes 0.7 % (1.7-9.3); % Neutrophils 4.2 % (42.2-75.2); Absolute Lymphocytes 2.8 10^3/uL (1.2-3.4); Absolute Neutrophils 0.1 10^3/uL (1.4-6.5)
--- NOTE | 2024-04-17 14:44 | PTCARENOTE ---
patient denies complaints, tolerating diet, remains independent, vss, ANC remains 0.1, platelets 34,000. neutropenic and bleeding precautions maintained, will continue to monitor.
[2024-04-17 16:00] VITALS: BP 106/67
--- NOTE | 2024-04-17 22:43 | W.PN.ONC ---
Today's Communication / Plan
-
d/w [facility] heme malignancy physician medical concierge Dr Fadumo Marie-- pending insurance review she will be accepted in transfer to [facility]
Impression
Impression
CML
pancytopenia. No evidence of acute DIC with elevated fibrinogen. Iron studies c/w AOCD/inflammation. No B12 or folate deficiency. Hemolysis unlikely with normal LDH
neutropenic fever
L > R tonsillitis w/o abscess s/p laryngoscopy 04/07
weight gain, amenorrhea
Plan
Plan
ANC remains low
Daily Granix 300 QD started in hopes of neutrophil recovery and faster infection recovery
Monitor CBC w/ diff daily
OP follow up with Dr. Yanez 1-2 weeks to determine if/when dasatinib can be resumed
It counts do not improve with improvement in infection - repeat bone marrow would be indicated
Subjective/Objective
Subjective/Objective
pt concerned about weight gain-- mother concerned about lack of progress
Vital Signs:
Vital Signs
Temp Pulse Resp BP Pulse Ox
99.0 F 81 16 106/67 98
04/17/24 16:00 04/17/24 16:00 04/17/24 16:00 04/17/24 16:00 04/17/24 16:00
Lab Results:
Laboratory Data
WBC 2.9 10^3/uL (4.8-10.8) L 04/17/24 09:08
Hgb 8.9 g/dL (12.0-16.0) L 04/17/24 09:08
Plt Count 34 10^3/uL (130-400) L 04/17/24 09:08
PT 14.7 Sec (11.4-14.6) H 04/08/24 05:32
INR 1.10 04/08/24 05:32
APTT 20.0 Sec (23.4-35.0) L 04/08/24 05:32
eGFR > 60.00 04/17/24 09:08
Orders
Orders
Orders From Last 24 Hours
04/17/24 08:00
Tbo-Filgrastim [Granix] 480 mcg SC DAILY
Transfer to [facility]--accepting service per Dr Fadumo Marie Heme malignancy
[2024-04-17 23:54] VITALS: BP 109/57
[2024-04-18 06:19] LABS: Hematocrit 25.2 % (37.0-47.0); Hemoglobin 8.4 g/dL (12.0-16.0); Mean Corp Hgb Conc. 33.3 g/dL (33.0-37.0); Mean Corpuscular Hgb 29.2 pg (27.0-31.0); Mean Corpuscular Volume 87.5 fL (81.0-99.0); Mean Platelet Volume 9.9 fL (7.4-10.4); Platelet Count 36 10^3/uL (130-400); Red Blood Cell Count 2.88 10^6/uL (4.20-5.40); Red Cell Dist. Width 16.8 % (11.5-14.5); White Blood Cell Count 2.4 10^3/uL (4.8-10.8)
[2024-04-18 06:42] LABS: Blood Urea Nitrogen 17 mg/dl (7-17); Calcium 8.7 mg/dl (8.4-10.2); Carbon Dioxide 25 mmol/L (22-30); Chloride 107 mmol/L (98-107); Estimated Creatinine Clearance > 125 ml/min; Glucose 125 mg/dl (70-99); Sodium 138 mmol/L (135-145); eGFR > 60.00
[2024-04-18 07:30] VITALS: BP 99/61
[2024-04-18 07:36] LABS: % Eosinophils 0.4 % (0-6); % Immature Granulocytes 0.4 % (0-0.5); % Lymphocytes 92.4 % (20.5-51.1); % Monocytes 1.3 % (1.7-9.3); % Neutrophils 5.5 % (42.2-75.2); Absolute Lymphocytes 2.2 10^3/uL (1.2-3.4); Absolute Neutrophils 0.1 10^3/uL (1.4-6.5); Nucleated Red Blood Cells % 2.9 %
[2024-04-18] MEDS: AUGMENTIN 875 MG/125 MG 1 TABLET PO ×2 (08:04→22:01)
[2024-04-18] MEDS: GRANIX 480 MCG SC (08:10)
--- NOTE | 2024-04-18 11:27 | W.PN.ONC2 ---
Today's Communication / Plan
-
.
Impression
Impression
CML
persistent pancytopenia despite treatment of infection.
no improvement of ANC despite GCSF 04/12-04/18
No evidence of acute DIC with elevated fibrinogen. Iron studies c/w AOCD/inflammation. No B12 or folate deficiency. Hemolysis unlikely with normal LDH
neutropenic fever
L > R tonsillitis w/o abscess s/p laryngoscopy 04/07
weight gain, amenorrhea
Plan
Plan
Dr. Kemp d/w Dr. Marie at [place] 04/17 and pending insurance review she will be accepted to [facility] in transfer -will discuss with Case management
abx per ID
Continue daily GCSF, neutropenic precautions
Subjective/Objective
Subjective
no new complaints
Vital Signs:
Vital Signs
Temp Pulse Resp BP Pulse Ox
98.0 F 86 14 99/61 98
04/18/24 07:30 04/18/24 07:30 04/18/24 07:30 04/18/24 07:30 04/18/24 07:30
Lab Results:
Laboratory Data
WBC 2.4 10^3/uL (4.8-10.8) L* 04/18/24 05:45
Hgb 8.4 g/dL (12.0-16.0) L 04/18/24 05:45
Plt Count 36 10^3/uL (130-400) L 04/18/24 05:45
PT 14.7 Sec (11.4-14.6) H 04/08/24 05:32
INR 1.10 04/08/24 05:32
APTT 20.0 Sec (23.4-35.0) L 04/08/24 05:32
eGFR > 60.00 04/18/24 05:45
Physical Exam
HEENT: Moist Mucous Membranes; No Jaundice
Cardiology: Normal Sinus Rhythm
Pulmonary: Clear
GI: Soft
Extremities: Pulses Present; No Edema
--- NOTE | 2024-04-18 11:39 | CM ---
Still awaiting hospital to hospital transfer. Will attempt to get update.
Plan: Case management will continue to follow and assist with discharge planning. to [facility] transfer when bed available.
[2024-04-18 15:45] VITALS: BP 102/64
[2024-04-18] MEDS: ANESTHETIC LOZENGE 1 LOZENGE PO (16:16)
[2024-04-18] MEDS: TYLENOL 650 MG PO (16:16)
--- NOTE | 2024-04-18 16:18 | W.PN.HOSP.TC ---
Today's Communication/Plan
-
Remains neutropenic with ANC 100
Continue oral antibiotics per
Monitor closely for fever.
According to discussion with oncology, patient accepted for transfer to [facility]
Assessment / Plan
Assessment / Plan
#Pharyngitis, tonsillitis
-COVID-negative, flu negative, [place] negative, MRSA screen negative, Blood cultures NGTD
-CT neck findings consistent with bilateral tonsillitis, left-sided pharyngitis
-ENT performed Laryngoscopy with no evidence of epiglottitis or airway compromise, did show L>R tonsiliitis
-Initiated on IV antibiotics (Unasyn) transition to Augmentin on 04/12 with plan to complete 14-day course of antibiotics
-Pain improved and controlled with anti-inflammatory; Diet has been advanced to solids.
-Continue prednisone taper from 30 mg, by 10 mg every third day
-Continue Augmentin through 04/23 to complete 14-day course of antibiotics
#CML
#Pancytopenia with absolute neutropenia
-Noted for pancytopenia with possible differentials including Dasatinib, versus acute infection, versus bone marrow process
-Neutropenia WBC 2.2 ANC 0.1 over the last 4 days; was 0.0 prior to that
-Hold Dasatinib; Oncology started 300 mcg of G-CSF on 04/12; increased to 480 mcg on 04/17
-Trend CBC and absolute neutrophil count
-Monitor for fevers
-Neutropenic precautions
-Plan for bone marrow biopsy to rule out myelofibrosis
#Bipolar currently not on any antipsychotic medications.
-Stable. Isolated prior instance of psychosis.
-Not on any chronic mood stabilizing meds, etc.
-Prior adverse reaction / tardive dyskinesia with antipsychotics.
-Follow for any changes in mood.
DVT Prophylaxis: SCDs
Code Status: Full
Anticipated Discharge: 24 - 48 hours
Subjective/Interval History
-
Date of Service: April 18, 2024
Objective Data
-
Labs:
Laboratory Results
04/18/24
05:45
WBC 2.4 L*
Hgb 8.4 L
Hct 25.2 L
Plt Count 36 L
Sodium 138
Potassium 4.0
Chloride 107
Carbon Dioxide 25
BUN 17
Creatinine 0.5 L
Glucose 125 H
Calcium 8.7
Vital Signs:
Vital Signs
Temp Pulse Resp BP Pulse Ox
98.0 F 86 14 99/61 98
04/18/24 07:30 04/18/24 07:30 04/18/24 07:30 04/18/24 07:30 04/18/24 07:30
I&O
04/17/24 04/18/24 04/19/24
06:59 06:59 06:59
Intake Total 960 / 960 840 / 840
Balance 960 / 960 840 / 840
Physical Exam
-
General: Well Developed, Well Nourished, No Apparent Distress and Comfortable
HEENT: Normocephalic, Atraumatic, Moist Mucous Membranes and Other (Improved pharyngeal erythema, remains without exudate)
Respiratory: Clear to Auscultation and Non Labored Respirations
Cardiac: Regular Rhythm and S1/S2; Negative Murmur, Rub or Gallop
GI: Soft, Nontender, Nondistended and Normal Bowel Sounds
Musculoskeletal: No Clubbing, No Cyanosis and No Edema
Skin: Warm, Dry and Normal Turgor; Negative Rash
Neuro: AO x 3 and Nonfocal/Grossly Intact
Psych: Calm
[2024-04-18 23:42] VITALS: BP 106/65
[2024-04-19 03:33] VITALS: BP 98/64
--- NOTE | 2024-04-19 06:32 | PTCARENOTE ---
Pt transferred to [facility] via [facility]. Nursing and physician report completed prior to transfer. Pt AAOx3. Stable at time of transfer.
== END 2024-04-19 06:37 | disposition short-term general hospital (02) | DRG 152 ==
LOC: 3 WEST ACU 05:08
PROVIDERS: Clinical Nurse Specialist Family Health; Emergency Medicine; Internal Medicine; Nurse Practitioner Acute Care; ADMITTING PHYSICIAN Hospitalist; ATTENDING PHYSICIAN Internal Medicine; EMERGENCY PHYSICIAN Emergency Medicine; FAMILY PHYSICIAN Nurse Practitioner Family; OTHER PHYSICIAN Internal Medicine Hematology & Oncology; OTHER PHYSICIAN Otolaryngology; OTHER PHYSICIAN Student in an Organized Health Care Education/Training Program
DX: J03.90 Acute tonsillitis, unspecified (principal); D61.810 Antineoplastic chemotherapy induced pancytopenia; C92.10 Chronic myeloid leukemia, BCR/ABL-positive, not having achieved remission; D84.9 Immunodeficiency, unspecified; D70.9 Neutropenia, unspecified; F31.9 Bipolar disorder, unspecified; J04.0 Acute laryngitis; Z11.52 Encounter for screening for COVID-19
CPT/HCPCS: 70491; 80048; 80202; 82607; 82728; 82746; 82784; 83540; 83550; 83615; 84703; 85025; 85045; 85379; 85384; 85610; 85730; 86308; 86850; 86900; 86901; 87040; 87070; 87502; 87641; 87811; 87880; 92610; 96365; 96375; 99284; J1447; Q9967